=== PATIENT | male | born 1955 | race Caucasian/White ===

== ENCOUNTER 2023-07-14 12:43 | Inpatient (IN) | payer MEDICARE ==
--- NOTE | 2023-07-14 13:23 | ED ---
General Adult HPI - General Source: patient, RN notes reviewed Mode of arrival: ambulatory Limitations: no limitations <Sharlene Greer - Last Filed: 07/14/23 13:20> - General Source: patient, RN notes reviewed Mode of arrival: ambulatory Limitations: no limitations <Miranda Miller - Last Filed: 07/14/23 17:52> - General Chief complaint: Recheck/Abnormal Lab/Rx Stated complaint: Kidney issues Time Seen by Provider: 07/14/23 13:21 - History of Present Illness Initial comments: 68 year old male presents to the emergency department for evaluation of worsening kidney function. Patient states that he received a call from Dr. Lambert's office that told him his calcium is elevated and his kidney function has worsened. He reports history of CKD stage 4 not on dialysis. (Sharlene Greer) This is a 68 year old male who presents to the emergency department for decreased renal function and elevated calcium. He received a call from Dr. Lambert's office stating that his kidney function had worsened and his calcium level was elevated. He was instructed to go to the emergency department for IV fluids at a minimum and further evaluation as to the cause of these changes. Prior to the lab work he had done this week at his [employer] office, his most recent lab work was 3 months ago. He has CKD stage 4 and his GFR is usually in the 20s. Unsure what his calcium level is usually. He did have one of his parathyroid glands removed in 2018 because it was not functioning, however he is unsure if this impacted his calcium levels. His stats that he had a mild case of c.diff last month and he was on vancomycin, and wondered if that may have been the cause of this. Patient denies any concerns or complaints aside from the abnormal labs. (Miranda Miller) - Related Data Allergies Allergy/AdvReac Type Severity Reaction Status Date / Time Penicillins Allergy Unknown Verified 07/14/23 13:06 Childhood Sulfa (Sulfonamide Allergy Rash/Hives Verified 07/14/23 13:06 Antibiotics) Review of Systems ROS Other: All systems not noted in ROS Statement are negative. <Sharlene Greer - Last Filed: 07/14/23 13:20> ROS Other: All systems not noted in ROS Statement are negative. <Miranda Miller - Last Filed: 07/14/23 17:52> ROS Statement: Those systems with pertinent positive or pertinent negative responses have been documented in the HPI. Past Medical History Past Medical History: Diabetes Mellitus, Hyperlipidemia, Hypertension, Renal Disease Additional Past Medical History / Comment(s): DM type 2 History of Any Multi-Drug Resistant Organisms: None Reported Additional Past Surgical History / Comment(s): parathyroid removal 2018, bloodclot filter in groin 2013 Past Psychological History: No Psychological Hx Reported Smoking Status: Never smoker Past Alcohol Use History: None Reported Past Drug Use History: None Reported <Sharlene Greer - Last Filed: 07/14/23 13:20> General Exam Limitations: no limitations <Sharlene Greer - Last Filed: 07/14/23 13:20> Limitations: no limitations General appearance: alert, in no apparent distress Head exam: Present: atraumatic, normocephalic, normal inspection Respiratory exam: Present: normal lung sounds bilaterally. Absent: respiratory distress, wheezes, rales, rhonchi, stridor Cardiovascular Exam: Present: regular rate, normal rhythm, normal heart sounds. Absent: systolic murmur, diastolic murmur, rubs, gallop, clicks Neurological exam: Present: alert, oriented X3, CN II-XII intact Psychiatric exam: Present: normal affect, normal mood Skin exam: Present: warm, dry, intact, normal color. Absent: rash <Miranda Miller - Last Filed: 07/14/23 17:52> - General Exam Comments Initial Comments: Visual Physical Exam Vital signs reviewed General: Well-appearing, nontoxic, no acute distress. Head: Normocephalic, atraumatic Eyes: PERRLA, EOMI ENT: Airway patent Chest: Nonlabored breathing Skin: No visual rash, normal skin tone Neuro: Alert and oriented 3 Musculoskeletal: No gross abnormalities (Sharlene Greer) Course Vital Signs 07/14/23 07/14/23 07/14/23 13:00 15:39 16:00 Temperature 98.7 F Pulse Rate 68 70 69 Respiratory 18 18 18 Rate Blood Pressure 163/83 138/81 147/82 O2 Sat by Pulse 96 96 94 L Oximetry 07/14/23 17:00 Temperature Pulse Rate 74 Respiratory 18 Rate Blood Pressure 165/87 O2 Sat by Pulse 94 L Oximetry Medical Decision Making <Sharlene Greer - Last Filed: 07/14/23 13:20> - Lab Data Result diagrams: 07/14/23 13:15 07/14/23 13:15 <Miranda Miller - Last Filed: 07/14/23 17:52> - Medical Decision Making Quick note preformed by Sharlene Greer PA-C (Sharlene Greer) This is a 68-year-old male who presents to the emergency department for an acute kidney injury and hypercalcemia. Was pt. sent in by a medical professional or institution? @ -Nephrology Did you speak to anyone other than the patient for history? @ -No Did you review nursing and triage notes? @ -Yes, and I agree, it is accurate with regards to the patient's symptoms. Were old charts reviewed? @ -No Differential Diagnosis? @ -Differential ABDULKADIR: Dehydration, medications, infection, this is not meant to be an all-inclusive list. EKG interpreted by me (3pts min.)? @ -EKG interpreted by me demonstrating the following: Sinus rhythm. Ventricular rate 68 beats per minute, CT interval 225 ms, QRS duration 138 ms, QTC 433 ms. X-rays interpreted by me (1pt min.)? @ -Not obtained CT interpreted by me (1pt min.)? @ -Not obtained U/S interpreted by me (1pt. min.)? @ -Not obtained What testing was considered but not performed? (CT, X-rays, U/S, labs)? Why? @ -None What meds were considered but not given? Why? @ -None Did you discuss the management of the patient with other professionals? @ -Yes, Nikita Coyne with [facility], who accepts the patient for admission. Did you reconcile home meds? @ -No Was smoking cessation discussed for >3mins.? @ -No Was critical care preformed (if so, how long)? @ -No Were there social determinants of health that impacted care today? How? (Homelessness, low income, unemployed, alcoholism, drug addiction, transportation, low edu. Level, literacy, decrease access to med. care, penitentiary, rehab)? @ -No Was there de-escalation of care discussed even if they declined? (Discuss DNR or withdrawal of care, Hospice)? @ -No What co-morbidities impacted this encounter? (DM, HTN, Smoking, COPD, CAD, Cancer, CVA, Hep., AIDS, mental health diagnosis, sleep apnea, morbid obesity)? @ -CKD, DM, HLD, HTN Was patient admitted / discharged? @ -Admitted. Lab work obtained revealing leukocytosis, creatinine of 4.76, eGFR of 12, and calcium of 12.9. Ionized calcium elevated at 6.5. Glucose is also low at 67 and magnesium is elevated at 3.5. Urinalysis negative for signs of infection. Patient given a 1L bolus of IV fluids. TSH, PTH, and vitamin D levels ordered with results pending at the time of admission. Patient admitted to medicine for ABDULKADIR and hypercalcemia. Consult placed for nephrology. Undiagnosed new problem with uncertain prognosis? @ -None Drug Therapy requiring intensive monitoring for toxicity (Heparin, Nitro, Insulin, Cardizem)? @ -None Were any procedures done? @ -None Diagnosis/symptom? @ -Hypercalcemia, ABDULKADIR Acute, or Chronic, or Acute on Chronic? @ -Acute Uncomplicated (without systemic symptoms) or Complicated (systemic symptoms)? @ -Uncomplicated Side effects of treatment? @ -None Exacerbation, Progression, or Severe Exacerbation] @ -Not applicable Poses a threat to life or bodily function? @ -Yes This case was discussed in detail with the attending ED physician, Dr. Nance. Presentation, findings, and treatment plan discussed in detail as well. (Miranda Miller) - Lab Data Lab Results 07/14/23 07/14/23 07/14/23 Range/Units 13:15 13:15 13:15 WBC 14.3 H (3.8-10.6) k/uL RBC 3.89 L (4.30-5.90) m/uL Hgb 12.0 L (13.0-17.5) gm/dL Hct 34.8 L (39.0-53.0) % MCV 89.3 (80.0-100.0) fL MCH 30.9 (25.0-35.0) pg MCHC 34.7 (31.0-37.0) g/dL RDW 13.7 (11.5-15.5) % Plt Count 331 (150-450) k/uL MPV 7.3 Neutrophils % 77 % Lymphocytes % 11 % Monocytes % 7 % Eosinophils % 3 % Basophils % 1 % Neutrophils # 11.0 H (1.3-7.7) k/uL Lymphocytes # 1.5 (1.0-4.8) k/uL Monocytes # 1.0 (0-1.0) k/uL Eosinophils # 0.4 (0-0.7) k/uL Basophils # 0.1 (0-0.2) k/uL Sodium 137 (137-145) mmol/L Potassium 4.4 (3.5-5.1) mmol/L Chloride 100 (98-107) mmol/L Carbon Dioxide 23 (22-30) mmol/L Anion Gap 14 mmol/L BUN 50 H (9-20) mg/dL Creatinine 4.76 H (0.66-1.25) mg/dL Est GFR (CKD-EPI)AfAm 13 (>60 ml/min/1.73 sqM) Est GFR (CKD-EPI)NonAf 12 (>60 ml/min/1.73 sqM) Glucose 67 L (74-99) mg/dL Calcium 12.9 H (8.4-10.2) mg/dL Ionized Calcium Negro (4.5-5.3) mg/dL Phosphorus 3.8 (2.5-4.5) mg/dL Magnesium 3.5 H (1.6-2.3) mg/dL Total Bilirubin 0.4 (0.2-1.3) mg/dL AST 24 (17-59) U/L ALT 19 (4-49) U/L Alkaline Phosphatase 58 (38-126) U/L Total Protein 7.7 (6.3-8.2) g/dL Albumin 4.5 (3.5-5.0) g/dL Lipase (23-300) U/L Urine Color Colorless Urine Appearance Clear (Clear) Urine pH 7.5 (5.0-8.0) Ur Specific [place] 1.009 (1.001-1.035) Urine Protein 1+ H (Negative) Urine Glucose (UA) 1+ H (Negative) Urine Ketones Negative (Negative) Urine Blood Negative (Negative) Urine Nitrite Negative (Negative) Urine Bilirubin Negative (Negative) Urine Urobilinogen <2.0 (<2.0) mg/dL Ur Leukocyte Esterase Negative (Negative) Urine RBC <1 (0-5) /hpf Urine WBC 1 (0-5) /hpf Ur Squamous Epith Cells <1 (0-4) /hpf Urine Mucus Rare H (None) /hpf 07/14/23 Range/Units 14:52 WBC (3.8-10.6) k/uL RBC (4.30-5.90) m/uL Hgb (13.0-17.5) gm/dL Hct (39.0-53.0) % MCV (80.0-100.0) fL MCH (25.0-35.0) pg MCHC (31.0-37.0) g/dL RDW (11.5-15.5) % Plt Count (150-450) k/uL MPV Neutrophils % % Lymphocytes % % Monocytes % % Eosinophils % % Basophils % % Neutrophils # (1.3-7.7) k/uL Lymphocytes # (1.0-4.8) k/uL Monocytes # (0-1.0) k/uL Eosinophils # (0-0.7) k/uL Basophils # (0-0.2) k/uL Sodium (137-145) mmol/L Potassium (3.5-5.1) mmol/L Chloride (98-107) mmol/L Carbon Dioxide (22-30) mmol/L Anion Gap mmol/L BUN (9-20) mg/dL Creatinine (0.66-1.25) mg/dL Est GFR (CKD-EPI)AfAm (>60 ml/min/1.73 sqM) Est GFR (CKD-EPI)NonAf (>60 ml/min/1.73 sqM) Glucose (74-99) mg/dL Calcium (8.4-10.2) mg/dL Ionized Calcium Negro 6.5 H* (4.5-5.3) mg/dL Phosphorus (2.5-4.5) mg/dL Magnesium (1.6-2.3) mg/dL Total Bilirubin (0.2-1.3) mg/dL AST (17-59) U/L ALT (4-49) U/L Alkaline Phosphatase (38-126) U/L Total Protein (6.3-8.2) g/dL Albumin (3.5-5.0) g/dL Lipase 104 (23-300) U/L Urine Color Urine Appearance (Clear) Urine pH (5.0-8.0) Ur Specific [place] (1.001-1.035) Urine Protein (Negative) Urine Glucose (UA) (Negative) Urine Ketones (Negative) Urine Blood (Negative) Urine Nitrite (Negative) Urine Bilirubin (Negative) Urine Urobilinogen (<2.0) mg/dL Ur Leukocyte Esterase (Negative) Urine RBC (0-5) /hpf Urine WBC (0-5) /hpf Ur Squamous Epith Cells (0-4) /hpf Urine Mucus (None) /hpf Disposition <Sharlene Greer - Last Filed: 07/14/23 13:20> Time of Disposition: 17:40 <Miranda Miller - Last Filed: 07/14/23 17:52> Clinical Impression: ABDULKADIR (acute kidney injury), Hypercalcemia Disposition: ADMITTED IP TO THIS HOSP Referrals: None,Stated [Primary Care Provider] - 1-2 days
[2023-07-14 14:04] LABS: Basophils # (A) 0.1 k/uL (0-0.2); Basophils % (A) 1 %; Eosinophils # (A) 0.4 k/uL (0-0.7); Eosinophils % (A) 3 %; HCT 34.8 % (39.0-53.0); Lymphocytes # (A) 1.5 k/uL (1.0-4.8); Lymphocytes % (A) 11 %; MCH 30.9 pg (25.0-35.0); MCHC 34.7 g/dL (31.0-37.0); MCV 89.3 fL (80.0-100.0); Mean Platelet Volume 7.3; Monocytes % (A) 7 %; Neutrophils % (A) 77 %; Platelet Count 331 k/uL (150-450); RBC 3.89 m/uL (4.30-5.90); RDW 13.7 % (11.5-15.5); WBC 14.3 k/uL (3.8-10.6)
[2023-07-14 14:08] LABS: Appearance,Urine Clear (Clear); Bilirubin,Urine Negative (Negative); Blood,Urine Negative (Negative); Color,Urine Colorless; Glucose,Urine (UA) 1+ (Negative); Ketones,Urine Negative (Negative); Leukocyte Esterase,Urine Negative (Negative); Mucus,Urine Rare /hpf; Nitrite,Urine Negative (Negative); PH, Urine 7.5 (5.0-8.0); Protein,Urine 1+ (Negative); RBC,Urine <1 /hpf (0-5); Specific Gravity,Urine 1.009 (1.001-1.035); Squamous Epithelial Cell,Urine <1 /hpf (0-4); Urobilinogen,Urine <2.0 mg/dL (<2.0); WBC,Urine 1 /hpf (0-5)
[2023-07-14 14:23] LABS: ALT 19 U/L (4-49); AST 24 U/L (17-59); African American GFR (CKD) 13 (>60 ml/min/1.73 sqM); Albumin 4.5 g/dL (3.5-5.0); Alkaline Phosphatase 58 U/L (38-126); Anion Gap 14 mmol/L; Blood Urea Nitrogen 50 mg/dL (9-20); Calcium 12.9 mg/dL (8.4-10.2); Carbon Dioxide 23 mmol/L (22-30); Chloride 100 mmol/L (98-107); Glucose 67 mg/dL (74-99); Magnesium 3.5 mg/dL (1.6-2.3); Non-African American GFR(CKD) 12 (>60 ml/min/1.73 sqM); Phosphorus 3.8 mg/dL (2.5-4.5); Potassium 4.4 mmol/L (3.5-5.1); Sodium 137 mmol/L (137-145); Total Bilirubin 0.4 mg/dL (0.2-1.3); Total Protein 7.7 g/dL (6.3-8.2)
[2023-07-14] MEDS ORDERED: SODIUM CHLORIDE 0.9% 1,000 ML IV STA (15:18)
[2023-07-14 16:41] LABS: Ionized Calcium 6.5 mg/dL (4.5-5.3)
[2023-07-14 17:37] LABS: Lipase 104 U/L (23-300)
[2023-07-14] MEDS ORDERED: ACETAMINOPHEN TAB 325 MG TAB PO PRN (17:42)
[2023-07-14] MEDS ORDERED: NALOXONE 0.4 MG/ML 1 ML VIAL IV PRN (17:42)
[2023-07-14 18:01] LABS: Glucose,Whole Blood 160 mg/dL (70-110)
[2023-07-14] MEDS: SODIUM CHLORIDE 0.9% 1,000 ML IV SCH (19:05)
[2023-07-15 06:24] LABS: Glucose,Whole Blood 98 mg/dL (70-110)
[2023-07-15] MEDS: CHOLECALCIFEROL 25 MCG (1000 IU) TABLET PO SCH (09:32)
[2023-07-15] MEDS: hydrALAZINE HCL 50 MG TAB PO SCH ×3 (09:33→22:04)
[2023-07-15] MEDS: amLODIPine 5 MG TAB PO SCH ×2 (09:33→22:04)
[2023-07-15] MEDS: cloNIDine HCL 0.2 MG TAB PO SCH ×3 (09:33→22:04)
[2023-07-15] MEDS: carvediloL 12.5 MG TAB PO SCH ×2 (09:33→16:39)
[2023-07-15] MEDS: FERROUS SULFATE 325 MG TAB PO SCH (09:33)
[2023-07-15] MEDS: SODIUM CHLORIDE 0.9% 1,000 ML IV SCH (09:53)
--- NOTE | 2023-07-15 10:57 | XR ---
EXAMINATION TYPE: XR chest 1V portable DATE OF EXAM: 07/15/2023 COMPARISON: None INDICATION: CHF TECHNIQUE: Single frontal view of the chest is obtained. FINDINGS: The heart size is normal. The pulmonary vasculature is normal. The lungs are clear. IMPRESSION: 1. No acute pulmonary process.
--- NOTE | 2023-07-15 11:53 | HP ---
HISTORY AND PHYSICAL CHIEF COMPLAINT: Renal failure. HISTORY OF PRESENT ILLNESS: This is a 68-year-old gentleman with a past medical history of multiple medical problems including diabetes mellitus, hypertension, hyperlipidemia, renal failure, being followed in the outpatient setting, outpatient labs which was abnormal. The patient is followed by Dr. Lopez as well as nephrology also and currently the creatinine was found to be elevated at 4.73. GFR was only 12 and calcium was also elevated at 12.9 and 6.5 and the patient was admitted for further evaluation and treatment. There is no history of any fever, rigors, or chills at this time. PAST MEDICAL HISTORY: Diabetes mellitus, hypertension, and hyperlipidemia. MEDICATIONS: Prior to admission include hydralazine, doses and rest of medications noted. ALLERGIES: Penicillin. FAMILY HISTORY: No history of heart disease or strokes in the family. SOCIAL HISTORY: No history of smoking or alcohol. REVIEW OF SYSTEMS: A 14-point review is negative except as mentioned earlier. PHYSICAL EXAMINATION: VITAL SIGNS: Pulse 70, blood pressure 140/82, respirations 16. HEENT: Conjunctivae normal. CARDIOVASCULAR: S1, S2. RESPIRATIONS: Diminished at the bases, no rhonchi. ABDOMEN: Soft, obese, nontender. No masses. LEGS: No edema, no swelling. NERVOUS SYSTEM: Nonfocal. LYMPHATICS: No lymphadenopathy. SKIN: No ulcer, rash, bleeding. JOINTS: No active deforming arthropathy. LABORATORY DATA: WBC 14, hemoglobin is 12, and creatinine is 4.76. ASSESSMENT: 1. Acute on chronic renal failure with acute tubular necrosis possibly. 2. Hypercalcemia. 3. Elevated WBC. 4. Diabetes mellitus type 2. 5. Hypertension. 6. Hyperlipidemia. 7. History of C. diff. 8. History of parathyroid removal. RECOMMENDATIONS AND DISCUSSION: This 68-year-old gentleman presents with multiple complex medical issues. At this time, I recommended to continue the current management and continue symptomatic treatment, otherwise I would recommend cautious IV hydration. Baseline chest x-ray will be ordered and Nephrology consultation, serum parathormone assay, WBC elevated exact reason unknown. If UA does not seem to be remarkable, I would recommend COVID-19 testing also, status post cultures, see orders for details. Overall prognosis extremely guarded, which I discussed with family. Further recommendations to follow. MMODL / IJN: [id number] /
--- NOTE | 2023-07-15 11:59 | P.NPCON ---
History of Present Illness - Reason for Consult acute renal failure - History of Present Illness Patient is a 68-year-old male with history of CK D stage IV with baseline creatinine around 3 mg/dL in March 2023. He was sent into the hospital with worsening renal function, increase creatinine to 5.5 and elevated calcium at the 12-lead grams per deciliter. Patient denies any significant symptoms. Patient has history of primary hyperparathyroidism status post removal of one parathyroid gland at [facility] a few years ago. He is not maintained on calcitriol or Tums prior to admission. Labs drawn yesterday shows vitamin D of 44.1 and PTH 35.4. Repeat labs are pending from today. Review of Systems As per HPI Past Medical History Past Medical History: Diabetes Mellitus, Hyperlipidemia, Hypertension, Renal Disease Additional Past Medical History / Comment(s): DM type 2 History of Any Multi-Drug Resistant Organisms: C-DIFF Date of last positivie culture/infection: 06/04/23 MDRO Source:: stool Additional Past Surgical History / Comment(s): parathyroid removal 2017, bloodclot filter in groin 2013 Past Psychological History: No Psychological Hx Reported Smoking Status: Never smoker Past Alcohol Use History: None Reported Past Drug Use History: None Reported Medications and Allergies Home Medications Medication Instructions Recorded Confirmed Type Aspirin EC [Ecotrin Low Dose] 81 mg PO HS@222907/14/23 07/14/23 History Cholecalciferol [Vitamin D3 (25 50 mcg PO DAILY 07/14/23 07/14/23 History Mcg = 1000 Iu)] Ezetimibe/Simvastatin 1 tab PO HS@222907/14/23 07/14/23 History [Ezetimibe/Simvastatin 10-40 mg] Ferrous Sulfate [Feosol] 325 mg PO DAILY 07/14/23 07/14/23 History Furosemide [Lasix] 40 mg PO DAILY 07/14/23 07/14/23 History HYDROcodone/APAP 7.5-325MG [[place] 0.5 tab PO Q3H 07/14/23 07/14/23 History 7.5-325] Insulin Aspart [NovoLOG Flexpen] 20 units SQ AC-TID 07/14/23 07/14/23 History Insulin Glargine,Hum.rec.anlog 30 units SQ HS 07/14/23 07/14/23 History [Lantus Solostar Pen] Insulin Glargine,Hum.rec.anlog 35 units SQ DAILY 07/14/23 07/14/23 History [Lantus Solostar Pen] Isosorbide Mononitrate ER [Imdur] 60 mg PO DAILY@1730 07/14/23 07/14/23 History Spironolactone [Aldactone] 25 mg PO BID@1730,2230 07/14/23 07/14/23 History amLODIPine [Norvasc] 5 mg PO BID 07/14/23 07/14/23 History carvediloL [Coreg] 25 mg PO BID 07/14/23 07/14/23 History cloNIDine HCL 0.2 mg PO TID 07/14/23 07/14/23 History hydrALAZINE HCL [Apresoline] 100 mg PO TID 07/14/23 07/14/23 History Allergies Allergy/AdvReac Type Severity Reaction Status Date / Time Penicillins Allergy Unknown Verified 07/14/23 19:28 Childhood Sulfa (Sulfonamide Allergy Rash/Hives Verified 07/14/23 19:28 Antibiotics) Physical Exam Vitals: Vital Signs Temp Pulse Pulse Resp BP BP Pulse Ox 07/15/23 10:36 69 21 151/87 94 L 07/15/23 04:07 70 152/81 96 07/15/23 00:10 75 16 146/84 94 L 07/14/23 22:00 81 18 151/84 94 L 07/14/23 17:00 74 18 165/87 94 L 07/14/23 16:00 69 18 147/82 94 L 07/14/23 15:39 70 18 138/81 96 07/14/23 13:00 98.7 F 68 18 163/83 96 Intake and Output 07/14/23 07/15/23 07/15/23 22:59 06:59 14:59 Other: Voiding Method Toilet Toilet Weight 117.934 kg Patient is awake, comfortable, no acute distress Alert oriented 3 Examination of the heart S1 and S2 Examination of the lungs bilateral breath sounds are heard Abdomen is soft nontender Examination of lower extremity shows no significant edema DINING ROOM HOSTESS exam grossly intact Results - Lab Results Most recent lab results Calcium 12.9 mg/dL (8.4-10.2) H 07/14/23 13:15 Phosphorus 3.8 mg/dL (2.5-4.5) 07/14/23 13:15 Magnesium 3.5 mg/dL (1.6-2.3) H 07/14/23 13:15 07/14/23 13:15 07/14/23 13:15 Assessment and Plan Assessment: 1. Acute kidney injury secondary to hypercalcemia and volume depletion currently improving. Continue with IV fluids 2. Hypercalcemia with previous history of remedy hyperparathyroidism status post removal of one parathyroid gland few years ago. Vitamin D is 44 and PTH is 35. They may be underlying primary hyperparathyroidism. Serum and urine immunofixation and REJI level is pending. 3. Chronic kidney disease NKF stage IV secondary to nephrosclerosis with baseline creatinine around 3.2 milligrams per deciliter in March 2023 4. Hypertension with CK D stage IV Plan: Continue with IV fluids Check Reji level and Serum and urine immunofixation Repeat labs in a.m. Consider parathyroid nuclear scan if other workup remains negative. Thank you for the consultation. We will continue to follow the patient with you during his hospitalization.
[2023-07-15] MEDS: INSULIN ASPART (NovoLOG) 100 UNIT/ML VIAL SQ SCH ×3 (12:48→22:05)
[2023-07-15 12:49] LABS: Glucose,Whole Blood 133 mg/dL (70-110)
[2023-07-15 13:52] LABS: Basophils % (A) 0 %; Eosinophils # (A) 0.4 k/uL (0-0.7); Eosinophils % (A) 4 %; HCT 33.2 % (39.0-53.0); HGB 11.3 gm/dL (13.0-17.5); Lymphocytes # (A) 1.5 k/uL (1.0-4.8); Lymphocytes % (A) 16 %; MCH 30.7 pg (25.0-35.0); MCHC 33.9 g/dL (31.0-37.0); MCV 90.5 fL (80.0-100.0); Monocytes # (A) 0.5 k/uL (0-1.0); Monocytes % (A) 6 %; Neutrophils # (A) 6.4 k/uL (1.3-7.7); Neutrophils % (A) 71 %; Platelet Count 282 k/uL (150-450); RBC 3.67 m/uL (4.30-5.90); RDW 13.7 % (11.5-15.5); WBC 8.9 k/uL (3.8-10.6)
[2023-07-15 13:54] LABS: African American GFR (CKD) 14 (>60 ml/min/1.73 sqM); Anion Gap 15 mmol/L; Blood Urea Nitrogen 45 mg/dL (9-20); Calcium 11.7 mg/dL (8.4-10.2); Carbon Dioxide 23 mmol/L (22-30); Chloride 102 mmol/L (98-107); Glucose 127 mg/dL (74-99); Non-African American GFR(CKD) 12 (>60 ml/min/1.73 sqM); Potassium 4.3 mmol/L (3.5-5.1); Sodium 140 mmol/L (137-145)
[2023-07-15] MEDS: ISOSORBIDE MONONITRATE ER 60 MG TAB.ER.24H PO SCH (16:39)
[2023-07-15 16:43] LABS: Glucose,Whole Blood 132 mg/dL (70-110)
[2023-07-15 21:59] LABS: Glucose,Whole Blood 161 mg/dL (70-110)
[2023-07-15] MEDS: EZETIMIBE 10 MG TAB PO SCH (22:03)
[2023-07-15] MEDS: ATORVASTATIN 20 MG TAB PO SCH (22:04)
[2023-07-15] MEDS: ASPIRIN 81 MG PO SCH (22:06)
[2023-07-16 04:04] LABS: Glucose,Whole Blood 131 mg/dL (70-110)
[2023-07-16 04:04] LABS: Glucose,Whole Blood 141 mg/dL (70-110)
[2023-07-16 08:10] LABS: Glucose,Whole Blood 101 mg/dL (70-110)
[2023-07-16] MEDS: INSULIN ASPART (NovoLOG) 100 UNIT/ML VIAL SQ SCH ×4 (09:17→22:04)
[2023-07-16] MEDS: amLODIPine 5 MG TAB PO SCH ×2 (09:19→22:05)
[2023-07-16] MEDS: hydrALAZINE HCL 50 MG TAB PO SCH ×3 (09:19→22:05)
[2023-07-16] MEDS: FERROUS SULFATE 325 MG TAB PO SCH (09:19)
[2023-07-16] MEDS: CHOLECALCIFEROL 25 MCG (1000 IU) TABLET PO SCH (09:19)
[2023-07-16] MEDS: carvediloL 12.5 MG TAB PO SCH ×2 (09:19→17:08)
[2023-07-16] MEDS: cloNIDine HCL 0.2 MG TAB PO SCH ×3 (10:51→22:57)
[2023-07-16] MEDS: SODIUM CHLORIDE 0.9% 1,000 ML IV SCH (10:51)
--- NOTE | 2023-07-16 11:14 | P.PN ---
Subjective Patient is seen in follow-up for acute kidney injury on chronic kidney disease and hypercalcemia. Calcium level trending down. Renal function stable as of yesterday. Currently off IV fluids. Has been voiding. No vomiting or diarrhea. Vital signs are stable. General: No acute distress. HEENT: Head exam is unremarkable. LUNGS: Notable rhonchi or wheezes. HEART: Rate and Rhythm are regular. ABDOMEN: Nontender. Obese. EXTREMITITES: No edema. Objective - Vital Signs Vital signs: Vital Signs Temp 98.6 F 07/16/23 08:10 Pulse 67 07/16/23 08:10 Resp 17 07/16/23 08:10 BP 123/73 07/16/23 08:10 Pulse Ox 94 L 07/16/23 08:10 FiO2 Intake & Output 07/15/23 07/16/23 07/16/23 18:59 06:59 18:59 Output Total 300 Balance -300 Output: Urine 300 Other: Voiding Method Urinal Toilet Toilet Urinal Urinal # Voids 2 - Labs CBC & Chem 7: 07/15/23 12:57 07/15/23 12:57 Labs: Abnormal Lab Results - Last 24 Hours (Table) 07/15/23 07/15/23 07/15/23 Range/Units 12:47 12:57 12:57 RBC 3.67 L (4.30-5.90) m/uL Hgb 11.3 L (13.0-17.5) gm/dL Hct 33.2 L (39.0-53.0) % BUN 45 H (9-20) mg/dL Creatinine 4.66 H (0.66-1.25) mg/dL Glucose 127 H (74-99) mg/dL POC Glucose (mg/dL) 133 H (70-110) mg/dL Calcium 11.7 H (8.4-10.2) mg/dL Procalcitonin (0.02-0.09) ng/mL 07/15/23 07/15/23 07/15/23 Range/Units 12:57 16:42 21:48 RBC (4.30-5.90) m/uL Hgb (13.0-17.5) gm/dL Hct (39.0-53.0) % BUN (9-20) mg/dL Creatinine (0.66-1.25) mg/dL Glucose (74-99) mg/dL POC Glucose (mg/dL) 132 H 161 H (70-110) mg/dL Calcium (8.4-10.2) mg/dL Procalcitonin 0.13 H (0.02-0.09) ng/mL 07/16/23 07/16/23 Range/Units 04:00 04:01 RBC (4.30-5.90) m/uL Hgb (13.0-17.5) gm/dL Hct (39.0-53.0) % BUN (9-20) mg/dL Creatinine (0.66-1.25) mg/dL Glucose (74-99) mg/dL POC Glucose (mg/dL) 141 H 131 H (70-110) mg/dL Calcium (8.4-10.2) mg/dL Procalcitonin (0.02-0.09) ng/mL Assessment and Plan Plan: Assessment: 1. Acute kidney injury secondary to ATN versus progression of underlying chronic kidney disease. Creatinine 4.76 on admission and down to 4.66 yesterday. Rule out urinary retention. 2. Chronic kidney disease stage IV secondary to nephrosclerosis and diabetic kidney disease with baseline creatinine near 3 in March 2023. 3. Hypercalcemia with history of partial parathyroidectomy over 5 years ago. On vitamin D supplement daily. Denies personal history of malignancy. Vitamin D level 44 and PTH 35. Improving. 4. Diabetes mellitus. 5. Hypertension with chronic kidney disease. Stable. Plan: Resume IV fluids. Discontinue vitamin D. Follow-up pending workup for hypercalcemia. May need parathyroid nuclear scan. Morning labs pending.
[2023-07-16 11:17] LABS: Basophils # (A) 0.07 X 10*3/uL (0.00-0.10); Basophils % (A) 0.7 %; Eosinophils # (A) 0.52 X 10*3/uL (0.04-0.35); Eosinophils % (A) 5.4 %; HCT 33.7 % (39.6-50.0); HGB 10.8 g/dL (13.0-17.0); Lymphocytes # (A) 2.15 X 10*3/uL (0.90-5.00); Lymphocytes % (A) 22.4 %; MCH 29.8 pg (27.0-32.0); MCV 93.1 FL (80.0-97.0); Mean Platelet Volume 9.9 FL (9.5-12.2); Monocytes % (A) 11.4 %; NRBC Per 100 WBC 0 X 10*3/uL (0.00-0.01); Neutrophils # (A) 5.71 X 10*3/uL (1.80-7.70); Neutrophils % (A) 59.5 %; Platelet Count 296 X 10*3/uL (140-440); RBC 3.62 X 10*6/uL (4.40-5.60); RDW 13.4 % (11.5-14.5); WBC 9.61 X 10*3/uL (4.50-10.00)
[2023-07-16 11:23] LABS: ALT 14 U/L (10-49); AST 17 U/L (14-35); Albumin 4.3 g/dL (3.8-4.9); Albumin/Globulin Ratio 1.72 Ratio (1.60-3.17); Alkaline Phosphatase 44 U/L (41-126); BUN/Creat Ratio 8.42 Ratio (12.00-20.00); Blood Urea Nitrogen 42.1 mg/dL (9.0-27.0); Calcium 11.9 mg/dL (8.7-10.3); Carbon Dioxide 21.6 mmol/L (21.6-31.8); Chloride 103 mmol/L (96-109); Globulin 2.5 g/dL (1.6-3.3); Glucose 113 mg/dL (70-110); Potassium 4.5 mmol/L (3.5-5.5); Sodium 139 mmol/L (135-145); Total Bilirubin 0.2 mg/dL (0.3-1.2); Total Protein 6.8 g/dL (6.2-8.2)
[2023-07-16 12:16] LABS: Glucose,Whole Blood 160 mg/dL (70-110)
[2023-07-16] MEDS ORDERED: SODIUM CHLORIDE 0.9% 250 ML with PAMIDRONATE 60 MG IV ONE ×2 (15:47)
[2023-07-16] MEDS ORDERED: CALCITONIN INJ 200 UNIT/ML (MDV) VIAL IM ONE (16:45)
[2023-07-16] MEDS: ISOSORBIDE MONONITRATE ER 60 MG TAB.ER.24H PO SCH (17:08)
[2023-07-16 17:09] LABS: Glucose,Whole Blood 235 mg/dL (70-110)
[2023-07-16] MEDS: ONDANSETRON 4 MG/2 ML VIAL IVP PRN (17:31)
[2023-07-16 20:20] LABS: Glucose,Whole Blood 160 mg/dL (70-110)
[2023-07-16] MEDS: EZETIMIBE 10 MG TAB PO SCH (22:05)
[2023-07-16] MEDS: ATORVASTATIN 20 MG TAB PO SCH (22:05)
[2023-07-16] MEDS: ASPIRIN 81 MG PO SCH (22:05)
[2023-07-16] MEDS ORDERED: METOCLOPRAMIDE 5 MG/ML 2 ML VIAL IVP PRN (22:14)
[2023-07-16] MEDS: PANTOPRAZOLE 40 MG/10 ML VIAL IVP SCH (22:24)
--- NOTE | 2023-07-16 23:20 | PN ---
PROGRESS NOTE DATE OF SERVICE: 07/16/2023 SUBJECTIVE: This is a 68-year-old gentleman, who was admitted with acute on chronic renal failure, hypocalcemia, also had a previous parathyroid surgery and Nephrology following the patient closely. Creatinine is worsened up to 5. The patient does have some urine output. There is no history of any fever or rigors. PAST MEDICAL HISTORY: Reviewed. REVIEW OF SYSTEMS: A 14-point review is negative except as mentioned earlier. CURRENT MEDICATIONS: Reviewed include aspirin, dose and rest of medications reviewed. PHYSICAL EXAMINATION: VITAL SIGNS: Pulse 67, blood pressure 123/73, respirations 17. CHEST: Scattered rhonchi and crackles. ABDOMEN: Soft. NERVOUS SYSTEM: Nonfocal. LABORATORY DATA: Reviewed. Calcium is 11.9. ASSESSMENT: 1. Acute on chronic renal failure with acute tubular necrosis possibly. 2. Hypercalcemia secondary to hyperparathyroidism. 3. History of parathyroidectomy. 4. Elevated WBC. 5. Diabetes mellitus, type 2. 6. Hypertension. 7. Hyperlipidemia. 8. History of Clostridium difficile. RECOMMENDATIONS AND DISCUSSION: Recommend to continue current medications and continue symptomatic treatment, otherwise, cautious IV hydration. Repeat labs. Closely follow with Nephrology. Avoid nephrotoxic medications. PTH has been requested. Monitor blood pressure closely. Prognosis guarded because of multiple complex medical issues. Further recommendations to follow. See orders for further details. MMODL / IJN: [id number] /
[2023-07-17] MEDS: HYDROcodone/APAP 5-325MG 1 EACH TAB PO PRN ×3 (02:00→20:31)
[2023-07-17] MEDS: ONDANSETRON 4 MG/2 ML VIAL IVP PRN ×2 (02:01→11:51)
[2023-07-17] MEDS: SODIUM CHLORIDE 0.9% 1,000 ML IV SCH ×2 (03:15→16:38)
[2023-07-17 07:14] LABS: Glucose,Whole Blood 168 mg/dL (70-110)
--- NOTE | 2023-07-17 08:54 | XR ---
EXAMINATION TYPE: XR abdomen 2V DATE OF EXAM: 07/17/2023 COMPARISON: NONE HISTORY: nausea TECHNIQUE: One view abdominal series FINDINGS: The osseous structures are intact. The bowel gas pattern is nonspecific. Extensive retained fecal de bris throughout the colon compatible with severe constipation. Bilateral renal calculi are noted. The re is an IVC filter. Hypertrophic arthropathy of the hips. Degenerative changes spine. Atheroscleroti c changes. IMPRESSION: 1. Severe constipation. 2. Bilateral nephrolithiasis
[2023-07-17] MEDS: FERROUS SULFATE 325 MG TAB PO SCH (09:34)
[2023-07-17] MEDS: INSULIN ASPART (NovoLOG) 100 UNIT/ML VIAL SQ SCH ×4 (09:34→21:43)
[2023-07-17] MEDS: PANTOPRAZOLE 40 MG/10 ML VIAL IVP SCH ×2 (09:34→20:32)
[2023-07-17] MEDS: hydrALAZINE HCL 50 MG TAB PO SCH ×3 (09:34→21:43)
[2023-07-17] MEDS: amLODIPine 5 MG TAB PO SCH ×2 (09:34→20:31)
[2023-07-17] MEDS: cloNIDine HCL 0.2 MG TAB PO SCH ×3 (09:34→21:43)
[2023-07-17] MEDS: carvediloL 12.5 MG TAB PO SCH ×2 (09:35→16:36)
[2023-07-17] MEDS ORDERED: NA PHOS,M-B/NA PHOS,DI-BA 133 ML ENEMA RECTAL ONE (10:41)
[2023-07-17] MEDS ORDERED: LACTULOSE 20 GM/30 ML CUP PO ONE (10:41)
[2023-07-17 10:43] LABS: Basophils # (A) 0.05 X 10*3/uL (0.00-0.10); Basophils % (A) 0.5 %; HCT 34.5 % (39.6-50.0); HGB 10.9 g/dL (13.0-17.0); Lymphocytes # (A) 1.13 X 10*3/uL (0.90-5.00); Lymphocytes % (A) 11.5 %; MCH 29.9 pg (27.0-32.0); MCHC 31.6 g/dL (32.0-37.0); MCV 94.8 FL (80.0-97.0); Mean Platelet Volume 9.6 FL (9.5-12.2); Monocytes # (A) 0.86 X 10*3/uL (0.20-1.00); Monocytes % (A) 8.7 %; NRBC Per 100 WBC 0 X 10*3/uL (0.00-0.01); Neutrophils # (A) 7.66 X 10*3/uL (1.80-7.70); Neutrophils % (A) 77.7 %; Platelet Count 296 X 10*3/uL (140-440); RBC 3.64 X 10*6/uL (4.40-5.60); RDW 13.6 % (11.5-14.5); WBC 9.86 X 10*3/uL (4.50-10.00)
[2023-07-17 11:20] LABS: ALT 14 U/L (10-49); AST 13 U/L (14-35); Albumin 4.2 g/dL (3.8-4.9); Albumin/Globulin Ratio 1.68 Ratio (1.60-3.17); Alkaline Phosphatase 45 U/L (41-126); BUN/Creat Ratio 8.79 Ratio (12.00-20.00); Blood Urea Nitrogen 42.2 mg/dL (9.0-27.0); Calcium 10.9 mg/dL (8.7-10.3); Carbon Dioxide 21.8 mmol/L (21.6-31.8); Chloride 107 mmol/L (96-109); Globulin 2.5 g/dL (1.6-3.3); Glucose 161 mg/dL (70-110); Magnesium 2.8 mg/dL (1.5-2.4); Potassium 5.2 mmol/L (3.5-5.5); Sodium 141 mmol/L (135-145); Total Bilirubin 0.2 mg/dL (0.3-1.2); Total Protein 6.7 g/dL (6.2-8.2)
--- NOTE | 2023-07-17 12:29 | P.PN ---
Subjective Patient is seen in follow-up for acute kidney injury on chronic kidney disease and hypercalcemia. Calcium level trending down. Slightly better. Currently on IV fluids. Has been voiding. No vomiting or diarrhea. Vital signs are stable. General: No acute distress. HEENT: Head exam is unremarkable. LUNGS: Notable rhonchi or wheezes. HEART: Rate and Rhythm are regular. ABDOMEN: Nontender. Obese. EXTREMITITES: No edema. Objective - Vital Signs Vital signs: Vital Signs Temp 98.7 F 07/17/23 07:14 Pulse 83 07/17/23 07:14 Resp 20 07/17/23 07:14 BP 143/77 07/17/23 07:14 Pulse Ox 94 L 07/17/23 07:14 FiO2 Intake & Output 07/16/23 07/17/23 07/17/23 18:59 06:59 18:59 Output Total 700 673 Balance -700 -673 Output: Urine 700 450 Post Void Residual 223 Other: Voiding Method Toilet Toilet Toilet Urinal Urinal Urinal # Voids 3 1 - Labs CBC & Chem 7: 07/17/23 05:49 07/17/23 05:49 Labs: Abnormal Lab Results - Last 24 Hours (Table) 07/14/23 07/16/23 07/16/23 Range/Units 14:52 17:08 20:19 RBC (4.40-5.60) X 10*6/uL Hgb (13.0-17.0) g/dL Hct (39.6-50.0) % MCHC (32.0-37.0) g/dL Immature Gran # (0.00-0.04) X 10*3/uL Anion Gap (4.00-12.00) mmol/L BUN (9.0-27.0) mg/dL Creatinine (0.6-1.5) mg/dL Est GFR (CKD-EPI) (>=60) BUN/Creatinine Ratio (12.00-20.00) Ratio Glucose (70-110) mg/dL POC Glucose (mg/dL) 235 H 160 H (70-110) mg/dL Calcium (8.7-10.3) mg/dL Magnesium (1.5-2.4) mg/dL Total Bilirubin (0.3-1.2) mg/dL AST (14-35) U/L Vit D 1,25-Dihydroxy 16 L (20 - 79) pg/mL 07/17/23 07/17/23 07/17/23 Range/Units 05:49 05:49 07:12 RBC 3.64 L (4.40-5.60) X 10*6/uL Hgb 10.9 L (13.0-17.0) g/dL Hct 34.5 L (39.6-50.0) % MCHC 31.6 L (32.0-37.0) g/dL Immature Gran # 0.06 H (0.00-0.04) X 10*3/uL Anion Gap 12.20 H (4.00-12.00) mmol/L BUN 42.2 H (9.0-27.0) mg/dL Creatinine 4.8 H (0.6-1.5) mg/dL Est GFR (CKD-EPI) 12 L (>=60) BUN/Creatinine Ratio 8.79 L (12.00-20.00) Ratio Glucose 161 H (70-110) mg/dL POC Glucose (mg/dL) 168 H (70-110) mg/dL Calcium 10.9 H (8.7-10.3) mg/dL Magnesium 2.8 H (1.5-2.4) mg/dL Total Bilirubin 0.2 L (0.3-1.2) mg/dL AST 13 L (14-35) U/L Vit D 1,25-Dihydroxy (20 - 79) pg/mL Microbiology - Last 24 Hours (Table) 07/16/23 12:00 Urine Culture - Final Urine,Clean Catch 07/15/23 12:57 Blood Culture - Preliminary Blood Assessment and Plan Plan: Assessment: 1. Acute kidney injury secondary to ATN versus progression of underlying chronic kidney disease. Creatinine peaked at 5.0 this admission and is 4.8 today. 2. Chronic kidney disease stage IV secondary to nephrosclerosis and diabetic kidney disease with baseline creatinine near 3 in March 2023. 3. Hypercalcemia with history of partial parathyroidectomy over 5 years ago. On vitamin D supplement daily - stopped 07/16/2023.. Denies personal history of malignancy. Vitamin D level 44 and PTH 35. Calcitriol level 16. Improving. Status post pamidronate and calcitonin given 07/16/2023. 4. Diabetes mellitus. 5. Hypertension with chronic kidney disease. Stable. Plan: Maintain IV fluids. Discontinue vitamin D 07/16/23. Follow-up pending workup for hypercalcemia. Follow-up parathyroid nuclear scan. Continue to assess daily for need for renal replacement therapy. Lactulose as needed for constipation. Avoid nephrotoxins, including NSAIDs and Fleet enemas. Check renal uls.
[2023-07-17 13:35] LABS: Glucose,Whole Blood 192 mg/dL (70-110)
--- NOTE | 2023-07-17 14:32 | US ---
EXAMINATION TYPE: US kidneys/renal and bladder DATE OF EXAM: 07/17/2023 COMPARISON: NONE CLINICAL INDICATION: Male, 68 years old with history of abdulkadir; ABDULKADIR EXAM MEASUREMENTS: Right Kidney: 9.4 x 5.2 x 5.0 cm Left Kidney: 11.8 x 6.0 x 5.3 cm Difficult scan due to morbid obese pt and immobility Right Kidney: No evidence of hydro, lower pole gassed out Left Kidney: No evidence of hydro, "Sweat Sign" at lower pole Bladder: wnl Bilateral Jets seen: No No hydronephrosis or nephrolithiasis. Small amount of fluid adjacent to the left kidney IMPRESSION: 1. No hydronephrosis or nephrolithiasis. Renal cortical thickness are within normal limits. Small sakshi unt of fluid surrounding the left kidney. Can be associated with chronic medical renal disease or inf ection.
--- NOTE | 2023-07-17 14:34 | NM ---
EXAMINATION TYPE: NM parathyroid w/spect DATE OF EXAM: 07/17/2023 COMPARISON: NONE CLINICAL INDICATION: Male, 68 years old with history of hypercalcemia; TECHNIQUE: Following administration of 25.9 mCi Tc99m Sestamibi. Anterior projection images of the neck and ches t were obtained 10 minutes and 3 hours post injection. SPECT images of the neck and chest were [place] and reconstructed in three axes. FINDINGS: Thyroid tracer washout: Delayed images demonstrate near-complete tracer washout from the thyroid. Parathyroid uptake: None. The two-hour delayed images do not demonstrate any focal abnormal persisten t uptake in the region of the parathyroid glands to suggest parathyroid adenoma. Normal uptake: There is physiological tracer uptake in the myocardium, liver, salivary glands, and th yroid gland. IMPRESSION: Normal parathyroid imaging study. No evidence for mediastinal uptake to suggest mediastinal parathyro id adenoma
[2023-07-17] MEDS: ISOSORBIDE MONONITRATE ER 60 MG TAB.ER.24H PO SCH (16:36)
[2023-07-17 17:16] LABS: Glucose,Whole Blood 219 mg/dL (70-110)
[2023-07-17 20:22] LABS: Glucose,Whole Blood 216 mg/dL (70-110)
[2023-07-17] MEDS: LACTULOSE 20 GM/30 ML CUP PO PRN (20:31)
[2023-07-17] MEDS: ATORVASTATIN 20 MG TAB PO SCH (21:43)
[2023-07-17] MEDS: ASPIRIN 81 MG PO SCH (21:43)
[2023-07-17] MEDS: EZETIMIBE 10 MG TAB PO SCH (21:43)
--- NOTE | 2023-07-17 23:15 | P.PN ---
Subjective Progress Note Date: 07/17/23 Patient is evaluated today resting in bed family at the bedside. He is being followed by nephrology for the acute kidney injury with creatinine up to 4.8 today. Also with a history of partial parathyroidectomy and elevated calcium level status post IV pamidronate infusion and calcitonin. Patient most recent calcium level is 10.9 scheduled to undergo PTH scan today. Abdominal xray showing severe constipation and bilateral nephrolisthiasis. Review of Systems Constitutional: Denied any fatigue denied any fever. Cardio vascular: denied any chest pain, palpitations Gastrointestinal: denied any nausea, vomiting, diarrhea Pulmonary: Denied any shortness of breath cough Neurologic denied any new focal deficits All inpatient medications were reviewed and appropriate changes in these medications as dictated in the interval history and assessment and plan. PHYSICAL EXAMINATION: GENERAL: The patient is alert and oriented x3, not in any acute distress. Well developed, well nourished. HEENT: Pupils are round and equally reacting to light. EOMI. No scleral icterus. No conjunctival pallor. Normocephalic, atraumatic. No pharyngeal erythema. No thyromegaly. CARDIOVASCULAR: S1 and S2 present. No murmurs, rubs, or gallops. PULMONARY: Chest is clear to auscultation, no wheezing or crackles. ABDOMEN: Soft, nontender, nondistended, normoactive bowel sounds. No palpable organomegaly. MUSCULOSKELETAL: No joint swelling or deformity. EXTREMITIES: No cyanosis, clubbing, or pedal edema. NEUROLOGICAL: Gross neurological examination did not reveal any focal deficits. SKIN: No rashes. Assessment and Plan Acute kidney injury on chronic kidney disease stage IV. ABDULKADIR due to acute tubular necrosis vs. advancing renal disease. Followed by nephrology follow up daily addressing for need of starting hemodialysis -History of partial thyroidectomy with hypercalcemia treated with pamidronate and calcitonin most recent level 10.9. Patient to undergo PTH scan today. Continue on IV fluids and repeat labs in the AM. -Constipation will be treated with enema and lactulose patient does have issues with constipation. Recommending to discharge on bowel regimen. 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 -Diabetes Mellitus type 2 continue accuchecks achs and sliding scale insulin will add meal time insulin for improved glycemic control. -Hypertension continue on home medications clonidine, hydralazine, carvedilol and amlodipine. -Hyperlipidemia on statin therapy. -Hx of factor V -Obesity GI prophylaxis: stop protonix begin pepcid. DVT prophylaxis: subcu heparin Full Code The impression and plan of care has been dictated by Aspen Moody, Nurse Practitioner as directed. Dr. Mayra MD I have performed a history and physical examination and medical decision making of this patient, discussed the same with the dictator, and agree with the dictators assessment and plan as written, documented as a scribe. Based on total visit time, I have performed more than 50% of this visit. Objective - Vital Signs Vital signs: Vital Signs Temp 98.7 F 07/17/23 07:14 Pulse 83 07/17/23 07:14 Resp 20 07/17/23 07:14 BP 143/77 07/17/23 07:14 Pulse Ox 94 L 07/17/23 07:14 FiO2 Intake & Output 07/16/23 07/17/23 07/17/23 18:59 06:59 18:59 Output Total 700 300 Balance -700 -300 Output: Urine 700 300 Other: Voiding Method Toilet Toilet Urinal Urinal # Voids 3 1 - Labs CBC & Chem 7: 07/17/23 05:49 07/17/23 05:49 Labs: Abnormal Lab Results - Last 24 Hours (Table) 07/14/23 07/16/23 07/16/23 Range/Units 14:52 07:20 07:20 RBC 3.62 L (4.40-5.60) X 10*6/uL Hgb 10.8 L (13.0-17.0) g/dL Hct 33.7 L (39.6-50.0) % Immature Gran # 0.06 H (0.00-0.04) X 10*3/uL Monocytes # 1.10 H (0.20-1.00) X 10*3/uL Eosinophils # 0.52 H (0.04-0.35) X 10*3/uL Anion Gap 14.40 H (4.00-12.00) mmol/L BUN 42.1 H (9.0-27.0) mg/dL Creatinine 5.0 H (0.6-1.5) mg/dL Est GFR (CKD-EPI) 12 L (>=60) BUN/Creatinine Ratio 8.42 L (12.00-20.00) Ratio Glucose 113 H (70-110) mg/dL POC Glucose (mg/dL) (70-110) mg/dL Calcium 11.9 H (8.7-10.3) mg/dL Total Bilirubin 0.2 L (0.3-1.2) mg/dL Vit D 1,25-Dihydroxy 16 L (20 - 79) pg/mL 07/16/23 07/16/23 07/16/23 Range/Units 12:13 17:08 20:19 RBC (4.40-5.60) X 10*6/uL Hgb (13.0-17.0) g/dL Hct (39.6-50.0) % Immature Gran # (0.00-0.04) X 10*3/uL Monocytes # (0.20-1.00) X 10*3/uL Eosinophils # (0.04-0.35) X 10*3/uL Anion Gap (4.00-12.00) mmol/L BUN (9.0-27.0) mg/dL Creatinine (0.6-1.5) mg/dL Est GFR (CKD-EPI) (>=60) BUN/Creatinine Ratio (12.00-20.00) Ratio Glucose (70-110) mg/dL POC Glucose (mg/dL) 160 H 235 H 160 H (70-110) mg/dL Calcium (8.7-10.3) mg/dL Total Bilirubin (0.3-1.2) mg/dL Vit D 1,25-Dihydroxy (20 - 79) pg/mL 07/17/23 Range/Units 07:12 RBC (4.40-5.60) X 10*6/uL Hgb (13.0-17.0) g/dL Hct (39.6-50.0) % Immature Gran # (0.00-0.04) X 10*3/uL Monocytes # (0.20-1.00) X 10*3/uL Eosinophils # (0.04-0.35) X 10*3/uL Anion Gap (4.00-12.00) mmol/L BUN (9.0-27.0) mg/dL Creatinine (0.6-1.5) mg/dL Est GFR (CKD-EPI) (>=60) BUN/Creatinine Ratio (12.00-20.00) Ratio Glucose (70-110) mg/dL POC Glucose (mg/dL) 168 H (70-110) mg/dL Calcium (8.7-10.3) mg/dL Total Bilirubin (0.3-1.2) mg/dL Vit D 1,25-Dihydroxy (20 - 79) pg/mL Microbiology - Last 24 Hours (Table) 07/15/23 12:57 Blood Culture - Preliminary Blood Assessment and Plan Time with Patient: Less than 30
[2023-07-18] MEDS: SODIUM CHLORIDE 0.9% 1,000 ML IV SCH (05:46)
[2023-07-18] MEDS: HYDROcodone/APAP 5-325MG 1 EACH TAB PO PRN (06:24)
[2023-07-18 07:25] LABS: Glucose,Whole Blood 183 mg/dL (70-110)
[2023-07-18] MEDS: LACTULOSE 20 GM/30 ML CUP PO PRN (08:24)
[2023-07-18] MEDS: amLODIPine 5 MG TAB PO SCH (08:24)
[2023-07-18] MEDS: cloNIDine HCL 0.2 MG TAB PO SCH (08:24)
[2023-07-18] MEDS: hydrALAZINE HCL 50 MG TAB PO SCH (08:24)
[2023-07-18] MEDS: FERROUS SULFATE 325 MG TAB PO SCH (08:24)
[2023-07-18] MEDS: carvediloL 12.5 MG TAB PO SCH (08:24)
[2023-07-18] MEDS: INSULIN ASPART (NovoLOG) 100 UNIT/ML VIAL SQ SCH ×4 (08:25→12:58)
[2023-07-18] MEDS ORDERED: FAMOTIDINE 20 MG TAB PO SCH (09:00)
[2023-07-18] MEDS ORDERED: HEPARIN SODIUM,PORCINE 5,000 UNIT/ML 1 ML VIAL SQ SCH (09:00)
--- NOTE | 2023-07-18 10:01 | P.CRDCN ---
History of Present Illness History of present illness: HISTORY OF PRESENT ILLNESS: This is a 68-year-old male with a past medical history significant for chronic kidney disease, diabetes, hypertension, hyperlipidemia, and flash pulmonary edema. Patient follows with a Dr. Grijalva. We have been asked to see the patient in consultation for chest pain. Patient is admitted to the hospital secondary to acute kidney injury and hypercalcemia. Patient examined at the bedside. Patient reports having a brief episode overnight of left-sided chest discomfort that radiated into his arm. EKG was obtained and was nonischemic. Troponins are negative 2. Patient denies having any further episodes of chest discomfort. He denies any shortness of breath. He is hoping to be discharged home today. Patient's blood pressure remains elevated with a systolic in the 160s. * EKG reveals sinus mechanism with first-degree AV block. No signs of acute ischemia. * Chest xray negative for acute process * Laboratory data: Troponin negative 2 REVIEW OF SYSTEMS: At the time of my exam: CONSTITUTIONAL: Denies fever or chills. HEENT: Denies blurred vision, vision changes, or eye pain. Denies hemoptysis CARDIOVASCULAR: Denies chest pain. Denies orthopnea. Denies PND. Denies palpitations RESPIRATORY: Denies shortness of breath. GASTROINTESTINAL: Denies abdominal pain. Denies nausea or vomiting. HEMATOLOGIC: Denies bleeding disorders. GENITOURINARY: Denies any blood in urine. SKIN: Denies pruitis. Denies rash. PHYSICAL EXAM: VITAL SIGNS: Reviewed. GENERAL: Well-developed in no acute distress. HEENT: Head is normocephalic. Pupils are equal, round. Sclerae anicteric. Mucous membranes of the mouth are moist. Neck supple. No JVD or thyromegaly LUNGS: Respirations even and unlabored. Lungs essentially clear to auscultation bilaterally. HEART: Regular rate and rhythm. S1 and S2 heard. ABDOMEN: Soft. Nondistended. Nontender. EXTREMITIES: Normal range of motion. No clubbing or cyanosis. Peripheral pulses intact. No lower extremity edema NEUROLOGIC: Awake and alert. Oriented x 3. ASSESSMENT: Pain, noncardiac, troponin negative 2 Acute on chronic kidney disease Hypercalcemia Hypertension, uncontrolled Hyperlipidemia Diabetes History of flash pulmonary edema History of partial parathyroidectomy PLAN: An acute coronary event has been ruled out Obtain 2-D echo to assess cardiac structure and function Continue to monitor blood pressure No changes to antihypertensive regimen today. Will reevaluate patient tomorrow if he is still the hospital for possible modifications in his regimen. The patient is currently stable for discharge home today from a cardiac standpoint Further recommendations pending patient's course Nurse practitioner note has been reviewed by physician. Signing provider agrees with the documented findings, assessment, and plan of care. Past Medical History Past Medical History: Diabetes Mellitus, Hyperlipidemia, Hypertension, Renal Disease Additional Past Medical History / Comment(s): DM type 2 ,Factor V. History of Any Multi-Drug Resistant Organisms: C-DIFF Date of last positivie culture/infection: 06/04/23 MDRO Source:: stool Additional Past Surgical History / Comment(s): parathyroid removal 2017, bloodclot filter in groin 2013 Past Psychological History: No Psychological Hx Reported Smoking Status: Never smoker Past Alcohol Use History: None Reported Past Drug Use History: None Reported Medications and Allergies Home Medications Medication Instructions Recorded Confirmed Type Aspirin EC [Ecotrin Low Dose] 81 mg PO HS@222907/14/23 07/14/23 History Cholecalciferol [Vitamin D3 (25 50 mcg PO DAILY 07/14/23 07/14/23 History Mcg = 1000 Iu)] Ezetimibe/Simvastatin 1 tab PO HS@222907/14/23 07/14/23 History [Ezetimibe/Simvastatin 10-40 mg] Ferrous Sulfate [Feosol] 325 mg PO DAILY 07/14/23 07/14/23 History Furosemide [Lasix] 40 mg PO DAILY 07/14/23 07/14/23 History HYDROcodone/APAP 7.5-325MG [[place] 0.5 tab PO Q3H 07/14/23 07/14/23 History 7.5-325] Insulin Aspart [NovoLOG Flexpen] 20 units SQ AC-TID 07/14/23 07/14/23 History Insulin Glargine,Hum.rec.anlog 30 units SQ HS 07/14/23 07/14/23 History [Lantus Solostar Pen] Insulin Glargine,Hum.rec.anlog 35 units SQ DAILY 07/14/23 07/14/23 History [Lantus Solostar Pen] Isosorbide Mononitrate ER [Imdur] 60 mg PO DAILY@0 07/14/23 07/14/23 History Spironolactone [Aldactone] 25 mg PO BID@1730,2230 07/14/23 07/14/23 History amLODIPine [Norvasc] 5 mg PO BID 07/14/23 07/14/23 History carvediloL [Coreg] 25 mg PO BID 07/14/23 07/14/23 History cloNIDine HCL 0.2 mg PO TID 07/14/23 07/14/23 History hydrALAZINE HCL [Apresoline] 100 mg PO TID 07/14/23 07/14/23 History Allergies Allergy/AdvReac Type Severity Reaction Status Date / Time Penicillins Allergy Unknown Verified 07/14/23 19:28 Childhood Sulfa (Sulfonamide Allergy Rash/Hives Verified 07/14/23 19:28 Antibiotics) Physical Exam Vitals: Vital Signs Temp Pulse Resp BP BP Pulse Ox 07/18/23 07:22 98.9 F 73 16 164/87 93 L 07/18/23 02:00 97.8 F 62 16 149/84 92 L 07/17/23 21:46 75 149/81 07/17/23 19:35 97.5 F L 75 16 150/78 93 L 07/17/23 13:36 97.3 F L 74 18 162/85 95 Intake and Output 07/17/23 07/18/23 07/18/23 22:59 06:59 14:59 Intake Total 900 Output Total 800 Balance 900 -800 Intake: Intake, IV Titration 900 Amount Sodium Chloride 0.9% 1, 900 000 ml @ 75 mls/hr IV . [id number] [facility] Rx#:[id number] Output: Urine 400 Post Void Residual 400 Other: Voiding Method Toilet Urinal Results 07/17/23 05:49 07/17/23 05:49 Cardiac Enzymes 07/17/23 07/18/23 07/18/23 Range/Units 05:49 00:55 06:27 AST 13 L (14-35) U/L Troponin I 0.015 0.013 (0.000-0.034) ng/mL CBC 07/17/23 Range/Units 05:49 WBC 9.86 (4.50-10.00) X 10*3/uL RBC 3.64 L (4.40-5.60) X 10*6/uL Hgb 10.9 L (13.0-17.0) g/dL Hct 34.5 L (39.6-50.0) % Plt Count 296 (140-440) X 10*3/uL Comprehensive Metabolic Panel 07/17/23 Range/Units 05:49 Sodium 141 (135-145) mmol/L Potassium 5.2 (3.5-5.5) mmol/L Chloride 107 (96-109) mmol/L Carbon Dioxide 21.8 (21.6-31.8) mmol/L BUN 42.2 H (9.0-27.0) mg/dL Creatinine 4.8 H (0.6-1.5) mg/dL Glucose 161 H (70-110) mg/dL Calcium 10.9 H (8.7-10.3) mg/dL AST 13 L (14-35) U/L ALT 14 (10-49) U/L Alkaline Phosphatase 45 (41-126) U/L Total Protein 6.7 (6.2-8.2) g/dL Albumin 4.2 (3.8-4.9) g/dL Current Medications Generic Name Dose Route Start Last Admin Trade Name Freq PRN Reason Stop Dose Admin Acetaminophen 650 mg 07/14/23 17:42 Acetaminophen Tab 325 Mg Tab PO Q6HR PRN Mild Pain or Fever > 100.5 Hydrocodone Bitart/Acetaminophen 1 each 07/14/23 17:42 07/18/23 06:24 Hydrocodone/Apap 5-325mg 1 Each Tab PO 1 each Q4HR PRN Administration Moderate Pain (Scale 4 to 6) Amlodipine Besylate 5 mg 07/15/23 09:00 07/18/23 08:24 Amlodipine 5 Mg Tab PO 5 mg BID HOANG Administration Aspirin 81 mg 07/15/23 22:30 07/17/23 21:43 Aspirin 81 Mg PO 81 mg HS@2230 HOANG Administration Atorvastatin Calcium 20 mg 07/15/23 22:30 07/17/23 21:43 Atorvastatin 20 Mg Tab PO 20 mg HS@2230 HOANG Administration Carvedilol 25 mg 07/15/23 09:00 07/18/23 08:24 Carvedilol 12.5 Mg Tab PO 25 mg AC-BID HOANG Administration Clonidine 0.2 mg 07/15/23 09:00 07/18/23 08:24 Clonidine Hcl 0.2 Mg Tab PO 0.2 mg TID HOANG Administration Ezetimibe 10 mg 07/15/23 22:30 07/17/23 21:43 Ezetimibe 10 Mg Tab PO 10 mg HS@2230 HOANG Administration Famotidine 20 mg 07/18/23 09:00 07/18/23 08:24 Famotidine 20 Mg Tab PO 20 mg BID HOANG Administration Ferrous Sulfate 325 mg 07/15/23 09:00 07/18/23 08:24 Ferrous Sulfate 325 Mg Tab PO 325 mg DAILY HOANG Administration Heparin Sodium (Porcine) 5,000 unit 07/18/23 09:00 07/18/23 08:25 Heparin Sodium,Porcine 5,000 Unit/Ml 1 Ml Vial SQ 5,000 unit Q12HR HOANG Administration Hydralazine HCl 100 mg 07/15/23 09:00 07/18/23 08:24 Hydralazine Hcl 50 Mg Tab PO 100 mg TID HOANG Administration Sodium Chloride 1,000 mls @ 75 mls/hr 07/16/23 10:45 07/18/23 05:46 Saline 0.9% IV 75 mls/hr .[id number] HOANG Administration Insulin Aspart 0 unit 07/15/23 12:30 07/18/23 08:25 Insulin Aspart (Novolog) 100 Unit/Ml Vial SQ 2 unit ACHS [facility] Administration Protocol Insulin Aspart 3 unit 07/18/23 07:30 07/18/23 08:25 Insulin Aspart (Novolog) 100 Unit/Ml Vial SQ 3 unit AC-TID HOANG Administration Isosorbide Mononitrate 60 mg 07/15/23 17:30 07/17/23 16:36 Isosorbide Mononitrate Er 60 Mg Tab.Er.24h PO 60 mg DAILY@1730 [facility] Administration Lactulose 10 gm 07/17/23 12:25 07/18/23 08:24 Lactulose 20 Gm/30 Ml Cup PO 07/22/23 12:26 10 gm TID PRN Administration Constipation Metoclopramide HCl 5 mg 07/16/23 22:14 07/16/23 22:25 Metoclopramide 5 Mg/Ml 2 Ml Vial IVP 5 mg Q6HR PRN Administration Nausea And Vomiting Naloxone HCl 0.2 mg 07/14/23 17:42 Naloxone 0.4 Mg/Ml 1 Ml Vial IV Q2M PRN Opioid Reversal Ondansetron HCl 4 mg 07/14/23 17:42 07/17/23 11:51 Ondansetron 4 Mg/2 Ml Vial IVP 4 mg Q8HR PRN Administration Nausea And Vomiting Intake and Output 07/17/23 07/18/23 07/18/23 22:59 06:59 14:59 Intake Total 900 Output Total 800 Balance 900 -800 Intake: Intake, IV Titration 900 Amount Sodium Chloride 0.9% 1, 900 000 ml @ 75 mls/hr IV . [id number] [facility] Rx#:[id number] Output: Urine 400 Post Void Residual 400 Other: Voiding Method Toilet Urinal 07/17/23 05:49 07/17/23 05:49
[2023-07-18 11:17] LABS: BUN/Creat Ratio 8.64 Ratio (12.00-20.00); Blood Urea Nitrogen 38.9 mg/dL (9.0-27.0); Carbon Dioxide 20.2 mmol/L (21.6-31.8); Chloride 107 mmol/L (96-109); Glucose 160 mg/dL (70-110); Magnesium 2.5 mg/dL (1.5-2.4); Phosphorus 2.6 mg/dL (2.4-5.1); Potassium 4.6 mmol/L (3.5-5.5); Sodium 139 mmol/L (135-145)
--- NOTE | 2023-07-18 11:42 | P.PN ---
Subjective Patient is seen in follow-up for acute kidney injury on chronic kidney disease and hypercalcemia. Calcium level normal today. Currently on IV fluids. Has been voiding. No vomiting or diarrhea. Renal function also slightly improved. Requesting regular food. Vital signs are stable. General: No acute distress. HEENT: Head exam is unremarkable. LUNGS: Notable rhonchi or wheezes. HEART: Rate and Rhythm are regular. ABDOMEN: Nontender. Obese. EXTREMITITES: No edema. Objective - Vital Signs Vital signs: Vital Signs Temp 98.9 F 07/18/23 07:22 Pulse 73 07/18/23 07:22 Resp 16 07/18/23 07:22 BP 148/80 07/18/23 09:05 Pulse Ox 93 L 07/18/23 07:22 FiO2 Intake & Output 07/17/23 07/18/23 07/18/23 18:59 06:59 18:59 Intake Total 900 Output Total 673 800 Balance 227 -800 Intake: Intake, IV Titration 900 Amount Sodium Chloride 0.9% 1, 900 000 ml @ 75 mls/hr IV . [id number] [facility] Rx#:[id number] Output: Urine 450 400 Post Void Residual 223 400 Other: Voiding Method Toilet Toilet Urinal Urinal # Voids 1 - Labs CBC & Chem 7: 07/17/23 05:49 07/18/23 06:21 Labs: Abnormal Lab Results - Last 24 Hours (Table) 07/17/23 07/17/23 07/17/23 Range/Units 13:34 17:14 20:18 Carbon Dioxide (21.6-31.8) mmol/L BUN (9.0-27.0) mg/dL Creatinine (0.6-1.5) mg/dL Est GFR (CKD-EPI) (>=60) BUN/Creatinine Ratio (12.00-20.00) Ratio Glucose (70-110) mg/dL POC Glucose (mg/dL) 192 H 219 H 216 H (70-110) mg/dL Magnesium (1.5-2.4) mg/dL 07/18/23 07/18/23 Range/Units 06:21 07:24 Carbon Dioxide 20.2 L (21.6-31.8) mmol/L BUN 38.9 H (9.0-27.0) mg/dL Creatinine 4.5 H (0.6-1.5) mg/dL Est GFR (CKD-EPI) 13 L (>=60) BUN/Creatinine Ratio 8.64 L (12.00-20.00) Ratio Glucose 160 H (70-110) mg/dL POC Glucose (mg/dL) 183 H (70-110) mg/dL Magnesium 2.5 H (1.5-2.4) mg/dL Microbiology - Last 24 Hours (Table) 07/15/23 12:57 Blood Culture - Preliminary Blood 07/16/23 12:00 Urine Culture - Final Urine,Clean Catch Assessment and Plan Plan: Assessment: 1. Acute kidney injury secondary to ATN versus progression of underlying chronic kidney disease. Creatinine peaked at 5.0 this admission and is 4.5 today. No hydronephrosis noted on kidney ultrasound. 2. Chronic kidney disease stage IV secondary to nephrosclerosis and diabetic kidney disease with baseline creatinine near 3 in March 2023. 3. Hypercalcemia with history of partial parathyroidectomy over 5 years ago. On vitamin D supplement daily - stopped 07/16/2023.. Denies personal history of malignancy. Vitamin D level 44 and PTH 35. No evidence of parathyroid adenoma noted on parathyroid nuclear scan. Calcitriol level 16. Improving. Status post pamidronate and calcitonin given 07/16/2023. 4. Diabetes mellitus. 5. Hypertension with chronic kidney disease. Stable. Plan: Maintain IV fluids. Discontinued vitamin D 07/16/23. Follow-up pending workup for hypercalcemia - serum IF pending. Lactulose as needed for constipation. Avoid nephrotoxins, including NSAIDs and Fleet enemas. Also advised not to take any calcium or vitamin D supplements at this time. Discussed initiating renal replacement therapy due to depressed GFR. Patient refusing to start renal replacement therapy at this time. Patient wants to pursue peritoneal dialysis.. Patient has an appointment next week. Blood work will be rechecked and if no improvement in GFR, he will be scheduled for PD catheter insertion. Case also discussed with primary team.
--- NOTE | 2023-07-18 11:42 | CA ---
Transthoracic Echo Report Name: Gianni Christopher Age: 68 Gender: M : 1955 Exam Date: 07/18/2023 10:33 Exam Location: [place] [facility] Ht (in): 69 Wt (lb): 260 Ordering Physician: Edna Stuart Attending/Referring Phys: [id number], Sade [employer] Dispatcher Radha Bowers [facility] Procedure CPT: Indications: LV function, HTN, CP Cardiac Hx: Technical Quality: Fair Contrast 1: Total Dose (mL): Contrast 2: Total Dose (mL): MEASUREMENTS (Male / Female) Normal Values 2D ECHO LV Diastolic Diameter PLAX 5.3 cm 4.2 - 5.9 / 3.9 - 5.3 cm LV Systolic Diameter PLAX 4.1 cm IVS Diastolic Thickness 1.2 cm 0.6 - 1.0 / 0.6 - 0.9 cm LVPW Diastolic Thickness 1.2 cm 0.6 - 1.0 / 0.6 - 0.9 cm LV Relative Wall Thickness 0.5 LVOT Diameter 2.0 cm Ascending Aorta Diameter 3.4 cm M-MODE Aortic Root Diameter MM 3.3 cm LA Systolic Diameter MM 4.7 cm LA Ao Ratio MM 1.4 AV Cusp Separation MM 2.3 cm DOPPLER AV Peak Velocity 200.5 cm/s AV Peak Gradient 16.1 mmHg AV Mean Velocity 136.6 cm/s AV Mean Gradient 8.5 mmHg AV Velocity Time Integral 42.9 cm LVOT Peak Velocity 122.1 cm/s LVOT Peak Gradient 6.0 mmHg LVOT Velocity Time Integral 23.3 cm LVOT Stroke Volume 74.6 cm??? LVOT Stroke Volume Index 32.3 ml/m??? LVOT Cardiac Index 2043.7 cm???/min???m??? AV Area Cont Eq vti 1.7 cm??? AV Area Cont Eq pk 2.0 cm??? Mitral E Point Velocity 71.7 cm/s Mitral A Point Velocity 116.4 cm/s Mitral E to A Ratio 0.6 MV Deceleration Time 270.2 ms LV E' Lateral Velocity 7.9 cm/s Mitral E to LV E' Lateral Ratio 9.1 LV E' Septal Velocity 4.9 cm/s Mitral E to LV E' Septal Ratio 14.6 TR Peak Velocity 199.0 cm/s TR Peak Gradient 15.8 mmHg Right Atrial Pressure 8.0 mmHg Pulmonary Artery Systolic Pressu 23.8 mmHg Right Ventricular Systolic Press 23.8 mmHg FINDINGS Left Ventricle Mildly increased left ventricular wall thickness. Left ventricular cavity size normal. Low normal left ventricular systolic function with no obvious regional wall motion abnormalities. Left ventricular ejection fraction is estimated at 50-55%. Right Ventricle Severe right ventricular dilatation. Right Atrium Mild right atrial dilatation. Left Atrium Mild left atrial dilatation. Mitral Valve Mitral valve thickened. Mitral annular calcification. Mild mitral regurgitation. Aortic Valve Trileaflet aortic valve. Trace aortic regurgitation. Tricuspid Valve Structurally normal tricuspid valve. Trace tricuspid regurgitation. Pulmonic Valve Pulmonic valve not well visualized. Pericardium Small pericardial effusion. Aorta Normal size aortic root and proximal ascending aorta. CONCLUSIONS LVH with left ventricular ejection fraction of 50-55% Previewed by: Dr. Rogelio Miller MD (Electronically Signed) Final Date: 18 July 2023 11:42
[2023-07-18] MEDS ORDERED: bisacodyL 10 MG SUPP RECTAL STA (12:27)
[2023-07-18 12:40] LABS: Glucose,Whole Blood 167 mg/dL (70-110)
[2023-07-18 13:22] VITALS: BP 149/90; PULSE 69; RESP 18; TEMP 99.4
[2023-07-18 14:16] LABS: Chol/HDL Ratio 5.21 Ratio; LDL Cholesterol,Calculated 48.3 mg/dL (0.0-131.0)
[2023-07-19] MEDS ORDERED: FAMOTIDINE 20 MG TAB PO SCH (09:00)
--- NOTE | 2023-07-21 16:22 | P.DS ---
Providers Date of admission: 07/14/23 17:41 Attending physician: Taye Chicas Consults: 07/14/23 17:42 Consult Physician Urgent Consulting Provider: Angela Lambert Consult Reason/Comments: Hypercalcemia, ABDULKADIR Do you want consulting provider notified?: Yes 07/18/23 02:46 Consult Physician Routine Consulting Provider: Rogelio Miller Consult Reason/Comments: Chest pain Do you want consulting provider notified?: Yes, Notify in am Primary care physician: Stated None Hospital Course: Final Diagnosis Acute kidney injury on chronic kidney disease stage IV. ABDULKADIR due to acute tubular necrosis vs. advancing renal disease. -Chest pain noncardiac in nature with negative troponins and normal LV function. -History of partial thyroidectomy with hypercalcemia treated with pamidronate and calcitonin -Constipation will be treated with enema and lactulose patient does have issues with constipation. 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 -Diabetes Mellitus type 2 -Hypertension -Hyperlipidemia . -Hx of factor V -Obesity Discharge Disposition Patient is stable for discharge home. He has a follow-up appointment with Dr. Valentine for for peritoneal dialysis catheter placement. At this time patient and family have opted out of hemodialysis like to explore peritoneal dialysis. Patient to avoid taking vitamin D and calcium supplementation. Recommending to discharge on bowel regimen to avoid constipation and avoid narcotic for pain management if possible. He has been started on lactulose twice a day as needed. Lasix and Aldactone have been discontinued for now. Patient repeat labs with CBC BMP and magnesium in 3 days. He has a follow-up scheduled with Dr. Junior on July 25, Dr. Lambert on December 22 recommended to see his PCP Dr. Barnett on discharge as well. Hospital Course This is a 68-year-old male with a past medical history significant for chronic kidney disease, diabetes, hypertension, hyperlipidemia. Patient is admitted to the hospital secondary to acute kidney injury and hypercalcemia. Nephrology was consulted. His creatinine on admission was elevated at 4.73 with a GFR of 12 calcium elevated at 12.9. Patient denies any chest pain or shortness of breath, he does complain of some nausea on admission but no vomiting or diarrhea. Chest x-ray on admission was negative for acute pulmonary process. Abdominal x-ray shows severe constipation with bilateral nephrolithiasis. Abdomen bladder ultrasound shows no hydronephrosis or no nephrolithiasis there is renal cortical thickness is normal limits small amount of fluid from the left kidney cam be associated with chronic medical renal disease or infection. He did receive IV pamidronate infusion and calcitonin on 07/16 for the elevated calcium level and also underwent a parathyroid scan which shows no evidence for mediastinal uptake to suggest mediastinal parathyroid adenoma this is a normal parathyroid imaging study. He has been hydrated and his vitamin D supplementation was also discontinued. The constipation was treated and he did have a large bowel movement. Nephrology discussed renal replacement therapy with the patient they are agreeable for peritoneal dialysis at this time and he has appointment next week to follow up with his sulfur burner as well as Dr. Valentine with surgical services to undergo dialysis catheter placement. Patient did experience episode of left-sided chest discomfort which was felt to be noncardiac in nature he was evaluated by cardiology with normal troponins and normal LV function by echocardiogram he also had an unremarkable EKG. Cardiology felt this was noncardiac. His most recent laboratory data White blood cell count of 9.86, hemoglobin 10.9, sodium 139, potassium 4.6, BUN of 38.9, creatinine of 4.5, GFR of 13, glucose of 160s, phosphorus level of 2.6, magnesium level II.5, troponin levels were negative 3 and a calcium level is now 10.0 which is considered normal. Additional blood work includes a angiotensin-converting enzyme of 16, vitamin D 25-hydroxy at 44.1, vitamin D 1, 25dihydroxy at 16, acetone level of 0.13, TSH is 0.867, parathyroid hormone intact at 35.4 and 44.0. He had a cholesterol panel done showing triglyceride level of 211, cholesterol level of 122, LDL level of 48.3 and an HDL level of 21.50. His urinalysis was showing 1+ proteinuria and his viral panel was negative for Covid influenza and RSV. He is currently denying any chest pain or shortness of breath no nausea vomiting or diarrhea he is tolerating diet he would like to go home to continue his outpatient workup as mentioned. Please see medication reconciliation for a list of current medication. Thank you for allowing us to participate in the care of this patient. The impression and plan of care has been dictated by Aspen Moody, Nurse Practitioner as directed. Dr. Mayra MD I have performed a history and physical examination and medical decision making of this patient, discussed the same with the dictator, and agree with the dictators assessment and plan as written, documented as a scribe. Based on total visit time, I have performed more than 50% of this visit. Patient Condition at Discharge: Fair Plan - Discharge Summary Discharge Rx Participant: No New Discharge Prescriptions: New Famotidine [Pepcid] 20 mg PO DAILY #30 tab Lactulose [Cephulac] 10 gm PO BID #150 ml Continue amLODIPine [Norvasc] 5 mg PO BID cloNIDine HCL 0.2 mg PO TID hydrALAZINE HCL [Apresoline] 100 mg PO TID Isosorbide Mononitrate ER [Imdur] 60 mg PO DAILY@173 Insulin Glargine,Hum.rec.anlog [Lantus Solostar Pen] 30 units SQ HS carvediloL [Coreg] 25 mg PO BID Ezetimibe/Simvastatin [Ezetimibe/Simvastatin 10-40 mg] 1 tab PO HS@2230 Ferrous Sulfate [Iron (65 MG Elemental)] 325 mg PO DAILY Aspirin EC [Ecotrin Low Dose] 81 mg PO HS@2230 Changed HYDROcodone/APAP 7.5-325MG [[place] 7.5-325] 1 tab PO Q8H #0 Insulin Aspart [NovoLOG Flexpen] 10 units SQ AC-TID #0 Discontinued Spironolactone [Aldactone] 25 mg PO BID@173,2229 Insulin Glargine,Hum.rec.anlog [Lantus Solostar Pen] 35 units SQ DAILY Furosemide [Lasix] 40 mg PO DAILY Cholecalciferol [Vitamin D3 (25 Mcg = 1000 Iu)] 50 mcg PO DAILY Discharge Medication List Aspirin EC [Ecotrin Low Dose] 81 mg PO HS@22307/14/23 [History] Ezetimibe/Simvastatin [Ezetimibe/Simvastatin 10-40 mg] 1 tab PO HS@22307/14/23 [History] Ferrous Sulfate [Iron (65 MG Elemental)] 325 mg PO DAILY 07/14/23 [History] Insulin Glargine,Hum.rec.anlog [Lantus Solostar Pen] 30 units SQ HS 07/14/23 [History] Isosorbide Mononitrate ER [Imdur] 60 mg PO DAILY@1730 07/14/23 [History] amLODIPine [Norvasc] 5 mg PO BID 07/14/23 [History] carvediloL [Coreg] 25 mg PO BID 07/14/23 [History] cloNIDine HCL 0.2 mg PO TID 07/14/23 [History] hydrALAZINE HCL [Apresoline] 100 mg PO TID 07/14/23 [History] Famotidine [Pepcid] 20 mg PO DAILY #30 tab 07/18/23 [Rx] HYDROcodone/APAP 7.5-325MG [[place] 7.5-325] 1 tab PO Q8H #0 07/18/23 [Rx] Insulin Aspart [NovoLOG Flexpen] 10 units SQ AC-TID #0 07/18/23 [Rx] Lactulose [Cephulac] 10 gm PO BID #150 ml 07/18/23 [Rx] Follow up Appointment(s)/Referral(s): Vinay Valentine MD [Medical Doctor] - 07/25/23 2:20 pm Angela Lambert MD [STAFF PHYSICIAN] - 07/24/23 1:20 pm Nishi Barnett MD [STAFF PHYSICIAN] - 1 Week (Please call the office to schedule a follow up appointment) Ambulatory/Diagnostic Orders: Basic Metabolic Panel [LAB.AMB] Time Frame: 3 Days, Location: None Selected Complete Blood Count w/diff [LAB.AMB] Time Frame: 3 Days, Location: None Selected Magnesium [LAB.AMB] Time Frame: 3 Days, Location: None Selected Patient Instructions/Handouts: Famotidine (By mouth), Lactulose (By mouth), Acute Kidney Injury (DC), Hypercalcemia (DC) Activity/Diet/Wound Care/Special Instructions: Activity limited until follow up Repeat blood work (CBC, BMP and magnesium) in 1 week - see prescription Follow up with Dr Valentine as scheduled . Follow up with Dr. Lambert in 1 week Discharge Disposition: HOME SELF-CARE
== END 2023-07-18 15:15 | disposition home or self-care (01) | DRG 683 ==
LOC: EC 12:43 → 5NMEDONC 17:41
PROVIDERS: ADMIT Hospitalist; ATTEND Hospitalist
DX: N17.0 Acute kidney failure with tubular necrosis (principal); D68.51 Activated protein C resistance; E11.22 Type 2 diabetes mellitus with diabetic chronic kidney disease; I12.9 Hypertensive chronic kidney disease with stage 1 through stage 4 chronic kidney disease, or unspecified chronic kidney disease; N18.4 Chronic kidney disease, stage 4 (severe); E89.2 Postprocedural hypoparathyroidism; D72.829 Elevated white blood cell count, unspecified; E66.9 Obesity, unspecified; Z68.38 Body mass index [BMI] 38.0-38.9, adult; Z79.4 Long term (current) use of insulin; E83.52 Hypercalcemia; Z11.52 Encounter for screening for COVID-19; E86.9 Volume depletion, unspecified; I44.0 Atrioventricular block, first degree; K59.00 Constipation, unspecified; N20.0 Calculus of kidney; Z79.899 Other long term (current) drug therapy; Z53.29 Procedure and treatment not carried out because of patient's decision for other reasons; Z88.0 Allergy status to penicillin; Z88.2 Allergy status to sulfonamides; Z86.19 Personal history of other infectious and parasitic diseases
CPT/HCPCS: 36415; 71045; 74019; 76770; 78071; 80048; 80053; 80061; 81001; 82164; 82306; 82330; 82652; 83690; 83735; 83970; 84100; 84145; 84443; 84484; 85025; 86334; 86335; 87040; 87086; 87636; 93005; 93306; 96360; 96361; 99285

== ENCOUNTER 2023-08-03 05:56 | Day surgery (SDC) | payer MEDICARE ==
[~2023-08-03 05:56] MED LIST: ACETAMINOPHEN TAB 500 MG TAB PO PRN; DEXAMETHASONE SOD PHOSPHATE 4 MG/ML 1 ML VIAL IV ONE; HEPARIN SODIUM,PORCINE 5,000 UNIT/ML 1 ML VIAL SQ PRN; HYDROmorphone 0.5 MG/0.5 ML SYRINGE IVP PRN; LACTATED RINGERS 1,000 ML IV SCH; LIDOCAINE 1% (10MG/ML) FOR IV START INTRADERMA PRN; ONDANSETRON 4 MG/2 ML VIAL IVP ONE; droPERidol 5 MG/2 ML VIAL IVP ONE
[2023-08-03] MEDS ORDERED: LACTATED RINGERS 1,000 ML IV ONE (06:45)
[2023-08-03] MEDS ORDERED: ONDANSETRON 4 MG/2 ML VIAL ONE (07:01)
[2023-08-03 07:20] LABS: Glucose,Whole Blood 222 mg/dL (70-110)
[2023-08-03] MEDS ORDERED: INSULIN ASPART (NovoLOG) 100 UNIT/ML VIAL SQ ONE (07:25)
[2023-08-03] MEDS ORDERED: SUCCINYLCHOLINE CHLORIDE 200 MG/10 ML VIAL IV ONE (07:28)
[2023-08-03] MEDS ORDERED: PROPOFOL 10 MG/ML 20 ML VIAL IV ONE (07:28)
[2023-08-03] MEDS ORDERED: MIDAZOLAM 2 MG/2 ML VIAL ONE (07:28)
[2023-08-03] MEDS ORDERED: LIDOCAINE 1% INJ 10MG/ML (20 ML MDV) ONE (07:28)
[2023-08-03] MEDS ORDERED: fentaNYL (PF) 50 MCG/ML 2 ML AMP ONE (07:28)
[2023-08-03 07:30] LABS: Basophils # (A) 0.1 k/uL (0-0.2); Basophils % (A) 1 %; Eosinophils # (A) 0.2 k/uL (0-0.7); Eosinophils % (A) 2 %; HCT 33.5 % (39.0-53.0); HGB 11.1 gm/dL (13.0-17.5); Lymphocytes # (A) 1.2 k/uL (1.0-4.8); Lymphocytes % (A) 13 %; MCH 29.6 pg (25.0-35.0); MCHC 33.1 g/dL (31.0-37.0); MCV 89.3 fL (80.0-100.0); Mean Platelet Volume 7.4; Monocytes # (A) 0.6 k/uL (0-1.0); Monocytes % (A) 7 %; Neutrophils # (A) 7.2 k/uL (1.3-7.7); Neutrophils % (A) 75 %; Platelet Count 285 k/uL (150-450); RBC 3.75 m/uL (4.30-5.90); RDW 14.2 % (11.5-15.5); WBC 9.6 k/uL (3.8-10.6)
[2023-08-03] MEDS ORDERED: SODIUM CHLORIDE 0.9% 1,000 ML IV ONE (07:33)
[2023-08-03 07:38] LABS: ALT 15 U/L (4-49); AST 18 U/L (17-59); African American GFR (CKD) 15 (>60 ml/min/1.73 sqM); Albumin 4.5 g/dL (3.5-5.0); Alkaline Phosphatase 58 U/L (38-126); Anion Gap 11 mmol/L; Blood Urea Nitrogen 50 mg/dL (9-20); Calcium 10.3 mg/dL (8.4-10.2); Carbon Dioxide 21 mmol/L (22-30); Chloride 104 mmol/L (98-107); Glucose 221 mg/dL (74-99); Non-African American GFR(CKD) 13 (>60 ml/min/1.73 sqM); Potassium 4.5 mmol/L (3.5-5.1); Sodium 136 mmol/L (137-145); Total Bilirubin 0.5 mg/dL (0.2-1.3); Total Protein 7.6 g/dL (6.3-8.2)
[2023-08-03] MEDS ORDERED: BUPIVACAINE (PF) 0.25% 30 ML VIAL SQ ONE ×2 (07:49→08:01)
[2023-08-03] MEDS ORDERED: HYDROcodone/APAP 5-325MG 1 EACH TAB PO PRN (08:32)
[2023-08-03] MEDS ORDERED: NALOXONE 0.4 MG/ML 1 ML VIAL IV PRN (08:32)
--- NOTE | 2023-08-03 08:34 | P.OP ---
Date of Procedure: 08/03/23 Procedure(s) Performed: PREOPERATIVE DIAGNOSIS: Renal failure POSTOPERATIVE DIAGNOSIS: Same PROCEDURE: Peritoneal dialysis catheter insertion SURGEON: Meme EBL: Minimal ANESTHESIA: Sedation plus local COMPLICATIONS: None OPERATIVE PROCEDURE: The patient was placed in the operative table in the supine position. The abdomen was prepped and draped in usual sterile fashion. A small vertical incision was made in the left paramedian location. Dissection down through the subcutaneous tissues took place using electrocautery. The anterior rectus was divided vertically using the scalpel. The rectus was bluntly. The posterior rectus was visualized. An 0 Vicryl pursestring was placed. A small opening in the posterior rectus fascia and peritoneum took place using a Metzenbaum scissors. There were no adhesions to the suture that was placed. The pigtail catheter was advanced into the pelvis over a stylette. No resistance was met. The inner cuff was secured to the fascia using the 0 Vicryl pursestring that was placed. The catheter was tunneled to an exit site in the left lateral lower quadrant. The catheter was connected to the 1 L bag of saline and approximated 800 mL of saline was easily introduced into the peritoneal cavity. The fluid was then allowed to evacuate. The majority of the fluid was returned. The anterior rectus fascia was then reapproximated using a running 0 Vicryl stitch. The subcutaneous tissues reprepped using 3-0 Vicryl sutures and the skin using 4-0 Monocryl sutures. The outpatient dialysis adapter was applied to the end of the catheter. Sterile dressings were then applied after skin glue was placed over the incision. DISPOSITION: Stable to recovery room
[2023-08-03] MEDS ORDERED: HYDROmorphone 0.5 MG/0.5 ML SYRINGE IVP ONE ×2 (08:41→09:00)
[2023-08-03 08:43] VITALS: TEMP 96.8
[2023-08-03] MEDS ORDERED: ALBUTEROL NEBULIZED 1.25 MG/3 ML INHALATION ONE (09:31)
[2023-08-03 09:42] VITALS: RESP 20
[2023-08-03 10:33] LABS: Glucose,Whole Blood 160 mg/dL (70-110)
[2023-08-03 10:42] VITALS: BP 113/71; PULSE 68
== END 2023-08-03 10:51 ==
LOC: OR 05:56
PROVIDERS: ATTEND Surgery
DX: N19 Unspecified kidney failure (principal); I11.0 Hypertensive heart disease with heart failure; I50.9 Heart failure, unspecified; E78.5 Hyperlipidemia, unspecified; E11.9 Type 2 diabetes mellitus without complications; Z90.49 Acquired absence of other specified parts of digestive tract; Z88.5 Allergy status to narcotic agent; Z88.0 Allergy status to penicillin; Z98.890 Other specified postprocedural states; Z79.899 Other long term (current) drug therapy
CPT/HCPCS: 80053; 85025; 49418; J2250; J0330; J1644; J0690; J2405; J2001; J3010; J2704; J1170; J0665

== ENCOUNTER 2024-05-08 01:43 | Emergency (ER) | payer MEDICARE ==
[2024-05-08 02:24] LABS: Glucose,Whole Blood 67 mg/dL (70-110)
[2024-05-08] MEDS: DEXTROSE 50% SYRINGE 50 ML IVP STA (02:28)
[2024-05-08 02:41] LABS: Basophils # (A) 0.1 k/uL (0-0.2); Basophils % (A) 1 %; Eosinophils # (A) 0.3 k/uL (0-0.7); Eosinophils % (A) 3 %; HCT 38.6 % (39.0-53.0); HGB 12.8 gm/dL (13.0-17.5); Lymphocytes # (A) 2.5 k/uL (1.0-4.8); Lymphocytes % (A) 22 %; MCH 30.4 pg (25.0-35.0); MCHC 33.3 g/dL (31.0-37.0); MCV 91.3 fL (80.0-100.0); Mean Platelet Volume 7.4; Monocytes # (A) 0.9 k/uL (0-1.0); Monocytes % (A) 8 %; Neutrophils # (A) 7.5 k/uL (1.3-7.7); Neutrophils % (A) 65 %; Platelet Count 321 k/uL (150-450); RBC 4.22 m/uL (4.30-5.90); RDW 14.1 % (11.5-15.5); WBC 11.5 k/uL (3.8-10.6)
[2024-05-08 02:50] LABS: ALT 17 U/L (4-49); AST 28 U/L (17-59); African American GFR (CKD) 20 (>60 ml/min/1.73 sqM); Albumin 4.3 g/dL (3.5-5.0); Alkaline Phosphatase 77 U/L (38-126); Anion Gap 9 mmol/L; Blood Urea Nitrogen 33 mg/dL (9-20); Carbon Dioxide 23 mmol/L (22-30); Chloride 106 mmol/L (98-107); Glucose 64 mg/dL (74-99); Magnesium 2.4 mg/dL (1.6-2.3); Non-African American GFR(CKD) 17 (>60 ml/min/1.73 sqM); Sodium 138 mmol/L (137-145); Total Bilirubin 0.4 mg/dL (0.2-1.3); Total Protein 7.2 g/dL (6.3-8.2)
[2024-05-08 03:02] LABS: Glucose,Whole Blood 187 mg/dL (70-110)
[2024-05-08 03:07] VITALS: PULSE 79
--- NOTE | 2024-05-08 03:10 | ED ---
General Adult HPI - General Chief complaint: Recheck/Abnormal Lab/Rx Stated complaint: abd labs Time Seen by Provider: 05/08/24 02:22 Source: patient Mode of arrival: ambulatory Limitations: no limitations - History of Present Illness Initial comments: Pleasant 68-year-old gentleman presenting today for hyperkalemia. Labs drawn on Sunday, showed potassium 8.6. Recalled on Sunday however did not hear phone until today. Patient has been running his dialysis peritoneal dialysis as usual. Denies chest pain shortness of breath, diarrhea vomiting or other symptoms. Additionally states he feels his blood sugar getting low took his usual dose of insulin tonight but did not eat as much as he normally would. - Related Data Home Medications Medication Instructions Recorded Confirmed Aspirin EC [Ecotrin Low Dose] 81 mg PO HS@222907/14/23 08/03/23 Ezetimibe/Simvastatin 1 tab PO HS@222907/14/23 08/03/23 [Ezetimibe/Simvastatin 10-40 mg] Ferrous Sulfate [Iron (65 MG 325 mg PO DAILY 07/14/23 08/03/23 Elemental)] Insulin Glargine,Hum.rec.anlog 30 units SQ HS 07/14/23 08/03/23 [Lantus Solostar Pen] Isosorbide Mononitrate ER [Imdur] 60 mg PO DAILY@1730 07/14/23 08/03/23 amLODIPine [Norvasc] 5 mg PO BID 07/14/23 08/03/23 carvediloL [Coreg] 25 mg PO BID 07/14/23 08/03/23 cloNIDine HCL 0.2 mg PO TID 07/14/23 08/03/23 hydrALAZINE HCL [Apresoline] 100 mg PO TID 07/14/23 08/03/23 Insulin Glargine,Hum.rec.anlog 35 units SQ 0800 07/27/23 08/03/23 [Lantus Solostar Pen] Previous Rx's Medication Instructions Recorded Famotidine [Pepcid] 20 mg PO DAILY #30 tab 07/18/23 HYDROcodone/APAP 7.5-325MG [[place] 1 tab PO Q8H #0 07/18/23 7.5-325] Insulin Aspart [NovoLOG Flexpen] 10 units SQ AC-TID #0 07/18/23 Lactulose [Cephulac] 10 gm PO BID #150 ml 07/18/23 Allergies Allergy/AdvReac Type Severity Reaction Status Date / Time Penicillins Allergy Unknown Verified 05/08/24 01:58 Childhood Sulfa (Sulfonamide Allergy Rash/Hives Verified 05/08/24 01:58 Antibiotics) iv contrast AdvReac Unknown Uncoded 05/08/24 01:58 Review of Systems ROS Statement: Those systems with pertinent positive or pertinent negative responses have been documented in the HPI. ROS Other: All systems not noted in ROS Statement are negative. 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 Date of last positivie culture/infection: 06/04/23 MDRO Source:: stool Additional Past Surgical History / Comment(s): parathyroid removal 2017, bloodclot filter in groin 2013 Additional Past Anesthesia/Blood Transfusion Reaction / Comment(s): claustraphobic has to be completely before placing mask on his face Past Psychological History: No Psychological Hx Reported Smoking Status: Never smoker Past Alcohol Use History: None Reported Past Drug Use History: None Reported - Past Family History Father Family Medical History: Cancer Additional Family Medical History / Comment(s): skin General Exam Limitations: no limitations Course Vital Signs 05/08/24 05/08/24 05/08/24 01:58 02:32 03:03 Temperature 98.1 F Pulse Rate 76 80 79 Respiratory 16 18 18 Rate Blood Pressure 146/85 128/68 134/80 O2 Sat by Pulse 97 97 97 Oximetry EKG Findings - EKG Comments: EKG Findings:: Sinus rhythm, rate 77 bpm, IA interval 207 ms, QRS duration 141 ms, QT/QTc 413/444 ms, left axis deviation, no significant ST elevations or depressions, compared to prior, no significant changes from prior Medical Decision Making - Medical Decision Making Was pt. sent in by a medical professional or institution (, PA, GROCERY CARRIER, urgent care, hospital, or [place] health care facility...) When possible be specific @ -[No] Did you speak to anyone other than the patient for history (EMS, parent, family, police, friend...)? What history was obtained from this source @ -[No] Did you review nursing and triage notes (agree or disagree)? Why? @ -[I reviewed and agree with nursing and triage notes] Were old charts reviewed (outside hosp., previous admission, EMS record, old EKG, old radiological studies, urgent care reports/EKG's, [place] health care facility records)? Report findings @ -[No old charts were reviewed] Differential Diagnosis (chest pain, altered mental status, abdominal pain women, abdominal pain men, vaginal bleeding, weakness, fever, dyspnea, syncope, headache, dizziness, GI bleed, back pain, seizure, CVA, palpatations, mental health, musculoskeletal)? @ -[not applicable] EKG interpreted by me (3pts min.). @ -[As above] X-rays interpreted by me (1pt min.). @ -[None done] CT interpreted by me (1pt min.). @ -[None done] U/S interpreted by me (1pt. min.). @ -[None done] What testing was considered but not performed or refused? (CT, X-rays, U/S, labs)? Why? @ -[None] What meds were considered but not given or refused? Why? @ -[None] Did you discuss the management of the patient with other professionals (professionals i.e. , PA, GROCERY CARRIER, lab, RT, psych nurse, high school social studies tutor, veterinary dentist, teacher, security officers and guards, clinical case manager)? Give summary @ -[No] Was smoking cessation discussed for >3mins.? @ -[No] Was critical care preformed (if so, how long)? @ -[No] Were there social determinants of health that impacted care today? How? (Homel essness, low income, unemployed, alcoholism, drug addiction, transportation, low edu. Level, literacy, decrease access to med. care, assisted, rehab)? @ -[No] Was there de-escalation of care discussed even if they declined (Discuss DNR or withdrawal of care, Hospice)? @ -[No] What co-morbidities impacted this encounter? (DM, HTN, Smoking, COPD, CAD, Cancer, CVA, ARF, Chemo, Hep., AIDS, mental health diagnosis, sleep apnea, morbid obesity)? @ -[None] Was patient admitted / discharged? Hospital course, mention meds given and route, prescriptions, significant lab abnormalities, going to OR and other pertinent info. @ -[hospital course] Undiagnosed new problem with uncertain prognosis? @ -[No] Drug Therapy requiring intensive monitoring for toxicity (Heparin, Nitro, Insulin, Cardizem)? @ -[No] Were any procedures done? @ -[No] Diagnosis/symptom? @ -[default] Acute, or Chronic, or Acute on Chronic? @ -[default] Uncomplicated (without systemic symptoms) or Complicated (systemic symptoms)? @ -[default] Side effects of treatment? @ -[No] Exacerbation, Progression, or Severe Exacerbation? @ -[No] Poses a threat to life or bodily function? How? (Chest pain, USA, SC, pneumonia, PE, COPD, DKA, ARF, appy, cholecystitis, CVA, Diverticulitis, Homicidal, Suicidal, threat to staff... and all critical care pts) @ -[No] - Lab Data Result diagrams: 05/08/24 02:12 05/08/24 02:12 Lab Results 05/08/24 05/08/24 05/08/24 Range/Units 02:12 02:12 02:23 WBC 11.5 H (3.8-10.6) k/uL RBC 4.22 L (4.30-5.90) m/uL Hgb 12.8 L (13.0-17.5) gm/dL Hct 38.6 L (39.0-53.0) % MCV 91.3 (80.0-100.0) fL MCH 30.4 (25.0-35.0) pg MCHC 33.3 (31.0-37.0) g/dL RDW 14.1 (11.5-15.5) % Plt Count 321 (150-450) k/uL MPV 7.4 Neutrophils % 65 % Lymphocytes % 22 % Monocytes % 8 % Eosinophils % 3 % Basophils % 1 % Neutrophils # 7.5 (1.3-7.7) k/uL Lymphocytes # 2.5 (1.0-4.8) k/uL Monocytes # 0.9 (0-1.0) k/uL Eosinophils # 0.3 (0-0.7) k/uL Basophils # 0.1 (0-0.2) k/uL Sodium 138 (137-145) mmol/L Potassium 4.0 (3.5-5.1) mmol/L Chloride 106 (98-107) mmol/L Carbon Dioxide 23 (22-30) mmol/L Anion Gap 9 mmol/L BUN 33 H (9-20) mg/dL Creatinine 3.49 H (0.66-1.25) mg/dL Est GFR (CKD-EPI)AfAm 20 (>60 ml/min/1.73 sqM) Est GFR (CKD-EPI)NonAf 17 (>60 ml/min/1.73 sqM) Glucose 64 L (74-99) mg/dL POC Glucose (mg/dL) 67 L (70-110) mg/dL POC Glu Wedding Consultant ID [place] Calcium 10.0 (8.4-10.2) mg/dL Magnesium 2.4 H (1.6-2.3) mg/dL Total Bilirubin 0.4 (0.2-1.3) mg/dL AST 28 (17-59) U/L ALT 17 (4-49) U/L Alkaline Phosphatase 77 (38-126) U/L Total Protein 7.2 (6.3-8.2) g/dL Albumin 4.3 (3.5-5.0) g/dL 05/08/24 Range/Units 03:01 WBC (3.8-10.6) k/uL RBC (4.30-5.90) m/uL Hgb (13.0-17.5) gm/dL Hct (39.0-53.0) % MCV (80.0-100.0) fL MCH (25.0-35.0) pg MCHC (31.0-37.0) g/dL RDW (11.5-15.5) % Plt Count (150-450) k/uL MPV Neutrophils % % Lymphocytes % % Monocytes % % Eosinophils % % Basophils % % Neutrophils # (1.3-7.7) k/uL Lymphocytes # (1.0-4.8) k/uL Monocytes # (0-1.0) k/uL Eosinophils # (0-0.7) k/uL Basophils # (0-0.2) k/uL Sodium (137-145) mmol/L Potassium (3.5-5.1) mmol/L Chloride (98-107) mmol/L Carbon Dioxide (22-30) mmol/L Anion Gap mmol/L BUN (9-20) mg/dL Creatinine (0.66-1.25) mg/dL Est GFR (CKD-EPI)AfAm (>60 ml/min/1.73 sqM) Est GFR (CKD-EPI)NonAf (>60 ml/min/1.73 sqM) Glucose (74-99) mg/dL POC Glucose (mg/dL) 187 H (70-110) mg/dL POC Glu Wedding Consultant ID Addi Ventura Calcium (8.4-10.2) mg/dL Magnesium (1.6-2.3) mg/dL Total Bilirubin (0.2-1.3) mg/dL AST (17-59) U/L ALT (4-49) U/L Alkaline Phosphatase (38-126) U/L Total Protein (6.3-8.2) g/dL Albumin (3.5-5.0) g/dL Disposition Clinical Impression: Patient on peritoneal dialysis Disposition: HOME SELF-CARE Condition: Good Instructions (If sedation given, give patient instructions): Hyperkalemia (ED) Additional Instructions: Every disease is a spectrum and a small chance still exists that a serious condition could develop, for this reason, please monitor yourself closely for new, changing or worsening symptoms, lightheadedness, dizziness, palpitations, chest pain, shortness of breath, abdominal pain, fever, inability to tolerate/keep down fluids or your medications, inability to follow up with outpatient providers as instructed and should you experience these symptoms or should you have any further concerns for your wellbeing please return to the ED or call 911 immediately. PLEASE call your primary care physician as soon as possible to arrange / discuss plan for followup appointment. Appointment in the next 1-3 days is strongly encouraged if possible. PLEASE let us know here before you leave if there is anything further we can do to be of any assistance. Take care and feel Better! Is patient prescribed a controlled substance at d/c from ED?: No Referrals: Stephanie Velazquez MD [Primary Care Provider] - 1-2 days
[2024-05-08 03:30] VITALS: BP 130/79; RESP 16; TEMP 98
== END 2024-05-08 03:30 | disposition home or self-care (01) ==
LOC: EC 01:43
DX: E87.5 Hyperkalemia (principal); Z99.2 Dependence on renal dialysis; Z88.0 Allergy status to penicillin; Z88.2 Allergy status to sulfonamides; Z88.8 Allergy status to other drugs, medicaments and biological substances
CPT/HCPCS: 36415; 80053; 83735; 85025; 93005; 96374; 99285

== ENCOUNTER 2024-12-22 15:32 | Inpatient (IN) | payer MEDICARE ==
--- NOTE | 2024-12-22 19:41 | ED ---
General Adult HPI - General Source: patient, family, RN notes reviewed, old records reviewed Mode of arrival: wheelchair Limitations: no limitations <Meng Camarena - Last Filed: 12/23/24 00:27> <Alistair Ventura - Last Filed: 12/29/24 03:31> - General Chief complaint: Abdominal Pain Stated complaint: urogenital, generalized pain Time Seen by Provider: 12/22/24 16:06 - History of Present Illness Initial comments: 69-year-old male with a past medical history of TBI, end-stage renal disease on peritoneal dialysis presents with complaints of abdominal pain and constipation. Reports his last bowel movement was December 08 approximately 2 weeks ago which she states was explosive in nature, but not bloody. States since then he has not had a bowel movement, has had increasing abdominal pain, and also has been getting his regular peritoneal dialysis treatments without issues. Reports his last dialysis was yesterday. States 4 days ago due to the amount of abdominal pain he decided to go to [facility] where he underwent lab work with that which was within normal limits, as well as CT abdomen pelvis which showed stool impaction but otherwise no other abnormalities and no sign of perforation. Patient was started at that time on vancomycin and ceftazidime for which he has been receiving through his peritoneal dialysis. reports during dialysis session on Sunday she started noticing a dark yellow color and the fluid being taking out during dialysis, and states after starting the antibiotics the fluid started to become slightly less yellow, but was still significantly yellow which is abnormal compared to the clear fluid that usually take off during dialysis. Reports they have tried Fleet enemas lactulose and other medications for the constipation. States the lactulose usually does the trick, but during these last 2 weeks amount of the medications they have tried if has enabled him to go to the bathroom and have bowel movement. (Meng Camarena) - Related Data Home Medications Medication Instructions Recorded Confirmed Aspirin EC [Ecotrin Low Dose] 81 mg PO DAILY 07/14/23 12/23/24 Ezetimibe/Simvastatin 1 tab PO DAILY 07/14/23 12/23/24 [Ezetimibe/Simvastatin 10-40 mg] Insulin Glargine,Hum.rec.anlog 40 units SQ BID 07/14/23 12/23/24 [Lantus Solostar Pen] Isosorbide Mononitrate ER [Imdur] 60 mg PO DAILY 07/14/23 12/23/24 carvediloL [Coreg] 25 mg PO BID 07/14/23 12/23/24 cloNIDine HCL 0.2 mg PO TID 07/14/23 12/23/24 hydrALAZINE HCL [Apresoline] 100 mg PO TID 07/14/23 12/23/24 Folic Acid/Vit B Complex and C 0.8 mg PO DAILY 12/23/24 12/23/24 [Purnima-Sb Tablet] Furosemide [Lasix] 40 mg PO DAILY 12/23/24 12/23/24 HYDROcodone/APAP 7.5-325MG [[place] 1 tab PO Q8H PRN 12/23/24 12/23/24 7.5-325] Insulin Aspart [NovoLOG Flexpen] 10 - 25 units SQ AC-TID MDD 60 12/23/24 12/23/24 units Lactulose [Cephulac] 20 gm PO TID PRN 12/23/24 12/23/24 Potassium Chloride ER [K-Dur 10] 10 meq PO DAILY 12/23/24 12/23/24 Semaglutide [Ozempic] 0.25 mg SQ FR 12/23/24 12/23/24 Sodium Bicarbonate Tab 650 mg PO DAILY 12/23/24 12/23/24 Spironolactone [Aldactone] 25 mg PO DAILY 12/23/24 12/23/24 diphenhydrAMINE [Benadryl] 25 mg PO HS 12/23/24 12/23/24 polyethylene glycoL 3350 [Miralax] 17 gm PO DAILY 12/23/24 12/23/24 Previous Rx's Medication Instructions Recorded Famotidine [Pepcid] 20 mg PO DAILY #30 tab 07/18/23 Allergies Allergy/AdvReac Type Severity Reaction Status Date / Time Penicillins Allergy Unknown Verified 12/23/24 10:39 Childhood Sulfa (Sulfonamide Allergy Rash/Hives Verified 12/23/24 10:39 Antibiotics) iv contrast AdvReac Unknown Uncoded 12/22/24 16:09 Review of Systems ROS Other: All systems not noted in ROS Statement are negative. <Meng Camarena - Last Filed: 12/23/24 00:27> ROS Other: All systems not noted in ROS Statement are negative. <Alistair Ventura - Last Filed: 12/29/24 03:31> ROS Statement: Those systems with pertinent positive or pertinent negative responses have been documented in the HPI. 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 Date of last positivie culture/infection: 06/04/23 MDRO Source:: stool Additional Past Surgical History / Comment(s): parathyroid removal 2018, bloodclot filter in groin 2013 Additional Past Anesthesia/Blood Transfusion Reaction / Comment(s): claustraphob ic has to be completely before placing mask on his face Past Psychological History: No Psychological Hx Reported Smoking Status: Never smoker Past Alcohol Use History: None Reported Past Drug Use History: None Reported - Past Family History Father Family Medical History: Cancer Additional Family Medical History / Comment(s): skin <Meng Camarena - Last Filed: 12/23/24 00:27> General Exam Limitations: no limitations <Meng Camarena - Last Filed: 12/23/24 00:27> - General Exam Comments Initial Comments: GENERAL: In no apparent distress at the time of examination. Pleasant and cooperative. HEENT: Head is atraumatic, normocephalic. Pupils are equal, round, and reactive to light. Sclerae anicteric. Conjunctivae are clear. Mucus membranes of the mouth are moist. Neck is supple. RESPIRATORY: Clear to auscultation. No wheezes, rales, or rhonchi. No use of accessory muscles. Patient maintaining oxygen saturation greater than 92%. No chest wall tenderness is noted on palpation or with deep breathing. CARDIOVASCULAR: Regular rate and rhythm. S1 and S2 noted. No systolic or diastolic murmur auscultated. No JVD noted. No S3 or S4 noted. GASTROINTESTINAL: Distention noted. Abdomen soft and round. Diminished bowel sounds auscultated x 4 quadrants. Significant tenderness to palpation diffusely, slightly worse in the periumbilical region. Clean peritoneal dialysis port appreciated without signs of erythema or discharge. INTEGUMENTARY: No cyanosis. No jaundice. No rashes noted. No cellulitis noted. EXTREMITIES: 2+ peripheral pulses. No evidence of peripheral edema. No calf tenderness noted. PSYCHIATRIC: Awake, alert, and oriented X 3. Appropriate affect. Intact judgement and insight. (Meng Camarena) Course Vital Signs 12/22/24 12/23/24 12/23/24 16:05 01:16 01:28 Temperature 99.1 F 98.7 F 98.7 F Pulse Rate 75 75 77 Respiratory 20 18 18 Rate Blood Pressure 117/72 112/81 105/73 O2 Sat by Pulse 95 94 L 94 L Oximetry Medical Decision Making - Lab Data Result diagrams: 12/22/24 20:29 12/22/24 20:29 <Meng Camarena - Last Filed: 12/23/24 00:27> - Lab Data Result diagrams: 12/28/24 05:58 12/28/24 05:58 <Alistair Ventura - Last Filed: 12/29/24 03:31> - Medical Decision Making Was pt. sent in by a medical professional or institution (Dr. PA, CLOTH EXAMINER MACHINE, urgent care, hospital, or retirement...) When possible be specific @ -Yes, sent from Dr. Lambert's office. Did you speak to anyone other than the patient for history (EMS, parent, family, police, friend...)? What history was obtained from this source @ -Yes, family. Did you review nursing and triage notes (agree or disagree)? Why? @ -I reviewed and agree with nursing and triage notes Were old charts reviewed (outside hosp., previous admission, EMS record, old EKG, old radiological studies, urgent care reports/EKG's, retirement records)? Report findings @ -Yes previous hospital records. Differential Diagnosis? @ -Differential Abdominal Pain Men: Appendicitis, cholecystitis, diverticulosis, ischemic bowel, pancreatitis, hepatitis, UTI, gastroenteritis, AAA, incarcerated hernia, bowel obstruction, constipation, inflammatory bowel, hepatitis, peptic ulcer disease, splenic infarction, perforated viscus, testicular torsion, this is not meant to be an all-inclusive list EKG interpreted by me (3pts min.). @ -As above X-rays interpreted by me (1pt min.). @ -None done CT interpreted by me (1pt min.). @ -CT abdomen shows no acute process, stool seen in the colon but not necessarily in the descending colon. U/S interpreted by me (1pt. min.). @ -None done What testing was considered but not performed or refused? (CT, X-rays, U/S, labs)? Why? @ -None What meds were considered but not given or refused? Why? @ -None Did you discuss the management of the patient with other professionals (professionals i.e. Dr., PA, CLOTH EXAMINER MACHINE, lab, RT, psych nurse, aids social worker, multi township assessor, teacher, administrative hearing officer, major case detective)? Give summary @ -No Was smoking cessation discussed for >3mins.? @ -No Was critical care preformed (if so, how long)? @ -No Were there social determinants of health that impacted care today? How? (Homelessness, low income, unemployed, alcoholism, drug addiction, transportation, low edu. Level, literacy, decrease access to med. care, retirement, rehab)? @ -No Was there de-escalation of care discussed even if they declined (Discuss DNR or withdrawal of care, Hospice)? DNR status @ -No What co-morbidities impacted this encounter? (DM, HTN, Smoking, COPD, CAD, Cancer, CVA, ARF, Chemo, Hep., AIDS, mental health diagnosis, sleep apnea, morbid obesity)? @ -None Was patient admitted / discharged? Hospital course, mention meds given and route, prescriptions, significant lab abnormalities, going to OR and other pertinent info. @ -Admitted, 69-year-old male presenting with complaints of abdominal pain. Reports his last bowel movement was December 08 approximately 2 weeks ago which she states was explosive in nature, but not bloody. States since then he has not had a bowel movement, has had increasing abdominal pain, and also has been getting his regular peritoneal dialysis treatments without issues. Reports his last dialysis was yesterday. States 4 days ago due to the amount of abdominal pain he decided to go to [facility] where he underwent lab work with that which was within normal limits, as well as CT abdomen pelvis which showed stool impaction but otherwise no other abnormalities and no sign of perforation. Patient was started at that time on vancomycin and ceftazidime for which he has been receiving through his peritoneal dialysis. reports during dialysis session on Sunday she started noticing a dark yellow color and the fluid being taking out during dialysis, and states after starting the antibiotics the fluid started to become slightly less yellow, but was still significantly yellow which is abnormal compared to the clear fluid that usually take off during dialysis. Reports they have tried Fleet enemas lactulose and other medications for the constipation. Patient received CT abdomen here which showed no acute process, significant stool in the bowel but not in the descending colon. Digital rectal exam reciprocated these results with no stool palpated and no blood on SHEREEN. CBC and CMP were relatively within normal limits, creatinine was around patient's baseline (ESRD patient). Patient also received pain medication which reduce his pain close to what his baseline was. Since patient was sent from operations and maintenance specialist's office it was decided the patient would be admitted for [facility] ation and receive dialysis here. Recommend potential bowel regiment such as GoLytely under the supervision of the operations and maintenance specialist to potentially help with the patient's constipation. Discussed admission with on-call [facility] who accepted. Undiagnosed new problem with uncertain prognosis? @ -No Drug Therapy requiring intensive monitoring for toxicity (Heparin, Nitro, Insulin, Cardizem)? @ -No Were any procedures done? @ -No Diagnosis/symptom? @ -Constipation Acute, or Chronic, or Acute on Chronic? @ -Chronic Uncomplicated (without systemic symptoms) or Complicated (systemic symptoms)? @ -Default Side effects of treatment? @ -No Exacerbation, Progression, or Severe Exacerbation? @ -No Poses a threat to life or bodily function? How? (Chest pain, USA, NC, pneumonia, PE, COPD, DKA, ARF, appy, cholecystitis, CVA, Diverticulitis, Homicidal, Suicidal, threat to staff... and all critical care pts) @ -Yes, chronic constipation can lead to bowel obstruction or bowel perforation which could lead to sepsis which could lead to endorgan damage and ultimately . (Meng Camarena) I personally saw the patient and performed the critical portion of the service. I discussed the patient care with the resident. I directed management, care planning and final disposition of the patient. This includes, but not limited to, review of all lab work, radiological studies, EKG's, consultations, vital signs, and nursing notes. EKG interpreted by me (3pts min.) @ [as above] X-Rays interpreted by me (1 pt min.) @ [none] CT interpreted by me ( 1pt min.) @ [I interpreted the patient's CT scan of the abdomen and pelvis as negative for free air, obstruction, acute surgical condition. U/S interpreted by me (1 pt min.) @ [none] Critical care time of [0] minutes excluding separately billable procedures was spent in conjunction with critical care activities provided by the Resident and Attending simultaneously. I was present during [no procedures] for all critical portions of the procedure and as immediately available to furnish service during the entire procedure. (Alistair Ventura) - Lab Data Lab Results 12/22/24 12/22/24 12/22/24 Range/Units 19:59 19:59 20:29 WBC 8.37 (4.50-10.00) 10*3/uL RBC 3.58 L (4.40-5.60) 10*6/uL Hgb 11.2 L (13.0-17.0) g/dL Hct 32.5 L (39.6-50.0) % MCV 90.8 (80.0-97.0) fL MCH 31.3 (27.0-32.0) pg MCHC 34.5 (32.0-37.0) g/dL Plt Count 220 (140-440) 10*3/uL MPV 9.6 (9.5-12.2) fL Immature Gran % (Auto) 0.6 % Neutrophils % 77.2 % Lymphocytes % 12.1 % Monocytes % 8.8 % Eosinophils % 0.8 % Basophils % 0.5 % Immature Gran # 0.05 H (0.00-0.04) 10*3/uL Neutrophils # 6.46 (1.80-7.70) 10*3/uL Lymphocytes # 1.01 (0.90-5.00) 10*3/uL Monocytes # 0.74 (0.20-1.00) 10*3/uL Eosinophils # 0.07 (0.04-0.35) 10*3/uL Basophils # 0.04 (0.00-0.10) 10*3/uL Sodium (137-145) mmol/L Potassium (3.5-5.1) mmol/L Chloride (98-107) mmol/L Carbon Dioxide (22-30) mmol/L Anion Gap mmol/L BUN (9-20) mg/dL Creatinine (0.66-1.25) mg/dL Est GFR (CKD-EPI)AfAm (>60 ml/min/1.73 sqM) Est GFR (CKD-EPI)NonAf (>60 ml/min/1.73 sqM) Glucose (74-99) mg/dL Plasma Lactic Acid Jose Alejandro (0.7-2.0) mmol/L Calcium (8.4-10.2) mg/dL Total Bilirubin (0.2-1.3) mg/dL AST (17-59) U/L ALT (4-49) U/L Alkaline Phosphatase (38-126) U/L Total Protein (6.3-8.2) g/dL Albumin (3.5-5.0) g/dL Urine Color Urine Appearance (Clear) Urine pH (5.0-8.0) Ur Specific [place] (1.001-1.035) Urine Protein (Negative) Urine Glucose (UA) (Negative) Urine Ketones (Negative) Urine Blood (Negative) Urine Nitrite (Negative) Urine Bilirubin (Negative) Urine Urobilinogen (<2.0) mg/dL Ur Leukocyte Esterase (Negative) Urine RBC (0-5) /hpf Urine WBC (0-5) /hpf Ur Squamous Epith Cells (0-4) /hpf Urine Mucus (None) /hpf Fluid Source Peritoneal Flui Fluid Volume Not Measured mL Fluid Appearance Hazy A (Clear) Fluid WBC 1102 /UL Fluid RBC (Auto) <2000 /UL Fld Polynuclear WBCs % 49 % Fluid Lymphocytes % 36 % Fluid Monocytes % 15 % Body Fluid Glucose Source Peritoneal Fluid Fluid Glucose 240 mg/dL 12/22/24 12/22/24 12/22/24 Range/Units 20:29 20:29 22:04 WBC (4.50-10.00) 10*3/uL RBC (4.40-5.60) 10*6/uL Hgb (13.0-17.0) g/dL Hct (39.6-50.0) % MCV (80.0-97.0) fL MCH (27.0-32.0) pg MCHC (32.0-37.0) g/dL Plt Count (140-440) 10*3/uL MPV (9.5-12.2) fL Immature Gran % (Auto) % Neutrophils % % Lymphocytes % % Monocytes % % Eosinophils % % Basophils % % Immature Gran # (0.00-0.04) 10*3/uL Neutrophils # (1.80-7.70) 10*3/uL Lymphocytes # (0.90-5.00) 10*3/uL Monocytes # (0.20-1.00) 10*3/uL Eosinophils # (0.04-0.35) 10*3/uL Basophils # (0.00-0.10) 10*3/uL Sodium 132 L (137-145) mmol/L Potassium 4.7 (3.5-5.1) mmol/L Chloride 96 L (98-107) mmol/L Carbon Dioxide 25 (22-30) mmol/L Anion Gap 11 mmol/L BUN 38 H (9-20) mg/dL Creatinine 3.56 H (0.66-1.25) mg/dL Est GFR (CKD-EPI)AfAm 19 (>60 ml/min/1.73 sqM) Est GFR (CKD-EPI)NonAf 16 (>60 ml/min/1.73 sqM) Glucose 112 H (74-99) mg/dL Plasma Lactic Acid Jose Alejandro 1.7 (0.7-2.0) mmol/L Calcium 8.7 (8.4-10.2) mg/dL Total Bilirubin 0.8 (0.2-1.3) mg/dL AST 49 (17-59) U/L ALT 45 (4-49) U/L Alkaline Phosphatase 58 (38-126) U/L Total Protein 6.1 L (6.3-8.2) g/dL Albumin 3.3 L (3.5-5.0) g/dL Urine Color Yellow Urine Appearance Clear (Clear) Urine pH 7.5 (5.0-8.0) Ur Specific [place] 1.014 (1.001-1.035) Urine Protein 1+ H (Negative) Urine Glucose (UA) Negative (Negative) Urine Ketones Negative (Negative) Urine Blood Negative (Negative) Urine Nitrite Negative (Negative) Urine Bilirubin Negative (Negative) Urine Urobilinogen <2.0 (<2.0) mg/dL Ur Leukocyte Esterase Negative (Negative) Urine RBC <1 (0-5) /hpf Urine WBC 1 (0-5) /hpf Ur Squamous Epith Cells <1 (0-4) /hpf Urine Mucus Rare H (None) /hpf Fluid Source Fluid Volume mL Fluid Appearance (Clear) Fluid WBC /UL Fluid RBC (Auto) /UL Fld Polynuclear WBCs % % Fluid Lymphocytes % % Fluid Monocytes % % Body Fluid Glucose Source Fluid Glucose mg/dL Disposition <Meng Camarena - Last Filed: 12/23/24 00:27> <Alistair Ventura - Last Filed: 12/29/24 03:31> Clinical Impression: Constipation Disposition: ADMITTED IP TO THIS HOSP Condition: Fair
[2024-12-22] MEDS: MORPHINE SULFATE 2 MG/ML SYRINGE IVP PRN (20:28)
[2024-12-22 20:36] LABS: Basophils # (A) 0.04 10*3/uL (0.00-0.10); Basophils % (A) 0.5 %; Eosinophils # (A) 0.07 10*3/uL (0.04-0.35); Eosinophils % (A) 0.8 %; HCT 32.5 % (39.6-50.0); HGB 11.2 g/dL (13.0-17.0); Lymphocytes # (A) 1.01 10*3/uL (0.90-5.00); Lymphocytes % (A) 12.1 %; MCH 31.3 pg (27.0-32.0); MCHC 34.5 g/dL (32.0-37.0); MCV 90.8 fL (80.0-97.0); Monocytes # (A) 0.74 10*3/uL (0.20-1.00); Monocytes % (A) 8.8 %; Neutrophils # (A) 6.46 10*3/uL (1.80-7.70); Neutrophils % (A) 77.2 %; Platelet Count 220 10*3/uL (140-440); RBC 3.58 10*6/uL (4.40-5.60); RDW 13.3 % (11.5-14.5); WBC 8.37 10*3/uL (4.50-10.00)
[2024-12-22 20:49] LABS: ALT 45 U/L (4-49); African American GFR (CKD) 19 (>60 ml/min/1.73 sqM); Anion Gap 11 mmol/L; Blood Urea Nitrogen 38 mg/dL (9-20); Calcium 8.7 mg/dL (8.4-10.2); Carbon Dioxide 25 mmol/L (22-30); Chloride 96 mmol/L (98-107); Glucose 112 mg/dL (74-99); Non-African American GFR(CKD) 16 (>60 ml/min/1.73 sqM); Sodium 132 mmol/L (137-145)
[2024-12-22 20:52] LABS: AST 49 U/L (17-59); Albumin 3.3 g/dL (3.5-5.0); Potassium 4.7 mmol/L (3.5-5.1); Total Protein 6.1 g/dL (6.3-8.2)
[2024-12-22 20:53] LABS: Alkaline Phosphatase 58 U/L (38-126)
--- NOTE | 2024-12-22 20:58 | CT ---
EXAMINATION TYPE: CT abdomen pelvis wo con DATE OF EXAM: 12/22/2024 8:21 PM COMPARISON: None. CLINICAL INDICATION: Male, 69 years old with history of abd pain, constipation, generalized pain TECHNIQUE: Axial images were obtained from above the diaphragm to the pubic rami in the axial plane a t 5 mm thick sections. Reconstructed images are reviewed on the computer in the coronal plane. CONTRAST: mL of . Study performed without Oral Contrast DLP: 1408 mGycm, Automated exposure control for dose reduction was used. FINDINGS: Limited CT sections are obtained the lung bases. The lung bases are clear. Moderate coronary artery calcification is present. CT ABDOMEN: Liver: Normal Spleen: Normal Pancreas: Normal Adrenal glands: The adrenal glands are normal. Gallbladder: Normal Kidneys: No masses are evident. No hydronephrosis is present. No cysts are present. Delayed images were obtained through the kidneys, which remain unremarkable. Aorta: Vascular calcification is within the aorta. Inferior vena cava: Inferior vena cava filter is present CT PELVIS: Peritoneal dialysis catheter is in the right hemipelvis Loops of bowel within the abdomen and pelvis are normal. This study is without oral contrast limi ting bowel evaluation Appendix: Not identified. No dilated tubular structure or inflammatory change is evident. Urinary bladder: Normal. Genitourinary structures: Prostate appears normal Osseous structures: No suspicious lytic or sclerotic lesions. IMPRESSION: 1. No suspicious abnormality account for abdominal pain. 2. Peritoneal dialysis catheter right hemipelvis. [facility], , 12/22/2024 8:56 PM
[2024-12-22 22:24] LABS: Bilirubin,Urine Negative (Negative); Blood,Urine Negative (Negative); Color,Urine Yellow; Glucose,Urine (UA) Negative (Negative); Ketones,Urine Negative (Negative); Leukocyte Esterase,Urine Negative (Negative); Mucus,Urine Rare /hpf; Nitrite,Urine Negative (Negative); PH, Urine 7.5 (5.0-8.0); Protein,Urine 1+ (Negative); RBC,Urine <1 /hpf (0-5); Specific Gravity,Urine 1.014 (1.001-1.035); Squamous Epithelial Cell,Urine <1 /hpf (0-4); Urobilinogen,Urine <2.0 mg/dL (<2.0); WBC,Urine 1 /hpf (0-5)
[2024-12-22] MEDS: MORPHINE SULFATE 2 MG/ML SYRINGE IVP STA (22:52)
[2024-12-22] MEDS ORDERED: NALOXONE 0.4 MG/ML 1 ML VIAL IV PRN (23:39)
[2024-12-23] MEDS: DIALYSIS (PERIT 1.5%) 2,000 ML 30 G/2,000 ML BAG INTRAPERIT SCH (01:10)
[2024-12-23 07:52] LABS: Glucose,Whole Blood 83 mg/dL (70-110)
[2024-12-23] MEDS: ONDANSETRON 4 MG/2 ML VIAL IVP PRN (09:53)
[2024-12-23 10:48] LABS: Basophils # (A) 0.02 10*3/uL (0.00-0.10); Basophils % (A) 0.2 %; Eosinophils # (A) 0.06 10*3/uL (0.04-0.35); Eosinophils % (A) 0.7 %; HCT 33.5 % (39.6-50.0); HGB 11.2 g/dL (13.0-17.0); Lymphocytes # (A) 0.54 10*3/uL (0.90-5.00); Lymphocytes % (A) 6.1 %; MCH 30.7 pg (27.0-32.0); MCHC 33.4 g/dL (32.0-37.0); MCV 91.8 fL (80.0-97.0); Monocytes # (A) 0.53 10*3/uL (0.20-1.00); Monocytes % (A) 5.9 %; Neutrophils # (A) 7.71 10*3/uL (1.80-7.70); Neutrophils % (A) 86.5 %; Platelet Count 236 10*3/uL (140-440); RBC 3.65 10*6/uL (4.40-5.60); RDW 13.3 % (11.5-14.5); WBC 8.91 10*3/uL (4.50-10.00)
[2024-12-23 11:01] LABS: African American GFR (CKD) 17 (>60 ml/min/1.73 sqM); Anion Gap 6 mmol/L; Blood Urea Nitrogen 39 mg/dL (9-20); Calcium 8.7 mg/dL (8.4-10.2); Carbon Dioxide 31 mmol/L (22-30); Chloride 95 mmol/L (98-107); Glucose 137 mg/dL (74-99); Magnesium 1.9 mg/dL (1.6-2.3); Non-African American GFR(CKD) 15 (>60 ml/min/1.73 sqM); Potassium 4.1 mmol/L (3.5-5.1); Sodium 132 mmol/L (137-145)
[2024-12-23 12:06] LABS: Glucose,Whole Blood 219 mg/dL (70-110)
--- NOTE | 2024-12-23 12:06 | P.NPCON ---
History of Present Illness - Reason for Consult Consult date: 12/23/24 end stage renal disease - History of Present Illness Patient is a 69-year-old male that was consulted for ESRD currently on daily peritoneal dialysis. Patient has medical history significant for hypertension, insulin depedent diabetes mellitus. Patient had complaint of abdominal pain and constipation. States abdominal pain started on Sunday. He went to [facility] for further workup. Labs and CT abdomen/pelvis were unremarkable. Abdominal pain did not improve after hospital visit and called outpatient nephrology. He was given vancomycin and ceftazidime through his PD. Patient states his last bowel movement was on December 08. Has been keeping up with his daily peritoneal dialysis treatments but did notice his PD fluid to be cloudy on Sunday. Reports his last dialysis was yesterday. Patient has additional complaint of difficulty urinating. Patient states voids have been infrequent since 3 days ago. Last void was 2 AM last night. Creatinine on admission was 6.0. Creatinine today 4.20. Medications reviewed with patient. Denies NSAID use or LINDSEY or ARB for her hypertension. Denies recent contrast. Denies any fevers or chills. Exam: Vital signs reviewed. GENERAL: Patient is awake oriented, comfortable in bed CARDIO: Regular rate rhythm. PULM: No audible rhonchi or wheezes. 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 History of Any Multi-Drug Resistant Organisms: None Reported, C-DIFF Date of last positivie culture/infection: 06/04/23 MDRO Source:: stool Past Surgical History: Tonsillectomy Additional Past Surgical History / Comment(s): parathyroid removal 2017, bloodclot filter in groin 2013, bilateral catract surgery 04/2024 Past Anesthesia/Blood Transfusion Reactions: No Reported Reaction Additional Past Anesthesia/Blood Transfusion Reaction / Comment(s): claustraphobic has to be completely before placing mask on his face Smoking Status: Never smoker - Past Family History Father Family Medical History: Cancer Additional Family Medical History / Comment(s): skin Medications and Allergies Home Medications Medication Instructions Recorded Confirmed Type Aspirin EC [Ecotrin Low Dose] 81 mg PO DAILY 07/14/23 12/23/24 History Ezetimibe/Simvastatin 1 tab PO DAILY 07/14/23 12/23/24 History [Ezetimibe/Simvastatin 10-40 mg] Insulin Glargine,Hum.rec.anlog 40 units SQ BID 07/14/23 12/23/24 History [Lantus Solostar Pen] Isosorbide Mononitrate ER [Imdur] 60 mg PO DAILY 07/14/23 12/23/24 History carvediloL [Coreg] 25 mg PO BID 07/14/23 12/23/24 History cloNIDine HCL 0.2 mg PO TID 07/14/23 12/23/24 History hydrALAZINE HCL [Apresoline] 100 mg PO TID 07/14/23 12/23/24 History Famotidine [Pepcid] 20 mg PO DAILY #30 tab 07/18/23 12/23/24 Rx Folic Acid/Vit B Complex and C 0.8 mg PO DAILY 12/23/24 12/23/24 History [Purnima-Sb Tablet] Furosemide [Lasix] 40 mg PO DAILY 12/23/24 12/23/24 History HYDROcodone/APAP 7.5-325MG [[place] 1 tab PO Q8H PRN 12/23/24 12/23/24 History 7.5-325] Insulin Aspart [NovoLOG Flexpen] 10 - 25 units SQ AC-TID MDD 60 12/23/2412/23 History units Lactulose [Cephulac] 20 gm PO TID PRN 12/23/24 12/23/24 History Potassium Chloride ER [K-Dur 10] 10 meq PO DAILY 12/23/24 12/23/24 History Semaglutide [Ozempic] 0.25 mg SQ FR 12/23/24 12/23/24 History Sodium Bicarbonate Tab 650 mg PO DAILY 12/23/24 12/23/24 History Spironolactone [Aldactone] 25 mg PO DAILY 12/23/24 12/23/24 History diphenhydrAMINE [Benadryl] 25 mg PO HS 12/23/24 12/23/24 History polyethylene glycoL 3350 [Miralax] 17 gm PO DAILY 12/23/24 12/23/24 History Allergies Allergy/AdvReac Type Severity Reaction Status Date / Time Penicillins Allergy Unknown Verified 12/23/24 10:39 Childhood Sulfa (Sulfonamide Allergy Rash/Hives Verified 12/23/24 10:39 Antibiotics) iv contrast AdvReac Unknown Uncoded 12/22/24 16:09 Physical Exam Vitals: Vital Signs Temp Pulse Pulse Resp BP BP Pulse Ox 12/23/24 07:47 98.9 F 73 17 146/75 97 12/23/24 02:31 98.4 F 84 16 120/64 94 L 12/23/24 01:28 98.7 F 77 18 105/73 94 L 12/23/24 01:16 98.7 F 75 18 112/81 94 L 12/22/24 16:05 99.1 F 75 20 117/72 95 Intake and Output 12/22/24 12/23/24 12/23/24 22:59 06:59 14:59 Other: Voiding Method Urinal # Voids 1 Weight 112.491 kg 112.491 kg Results - Lab Results Most recent lab results Calcium 8.7 mg/dL (8.4-10.2) 12/22/24 20:29 12/23/24 10:30 12/23/24 10:30 Assessment and Plan Assessment: ESRD receiving daily peritoneal dialysis, CT/abd pelvis showing no hydronephrosis Peritoneal dialysis peritonitis s/p vancomycin intraperitoneal on 12/20/2024 and maintained on daily ceftazidime. Constipation, CT abd/pelvis showing stool impaction, no signs of perforation Chronic normocytic anemia Insulin dependent Diabetes Mellitus Volume overloaded Hypertension, stable Plan: C/w daily peritoneal dialysis One time dose of IV ceftazidime ordered general surgery consulted monitor fever and signs of infection resume home meds once reconciled avoid nephrotoxic medications follow up BMP ordered CT abdomen/pelvis reviewed Order vancomycin level Cell count daily Patient is seen and examined. Agree with resident's findings, assessment and plan.
--- NOTE | 2024-12-23 12:32 | P.GSCN ---
History of Present Illness Consult date: 12/23/24 History of present illness: CHIEF COMPLAINT: Abdominal pain HISTORY OF PRESENT ILLNESS: This is a 69-year-old male who presented to the hospital with complaints of abdominal pain. He had been having issues with constipation. His last bowel movement was December 08. Patient has had no results with suppositories or laxatives. He denies any flatus. He does report being nauseous. Denies any vomiting CT scan of the abdomen reported no acute findings. Patient is tender right upper quadrant and right mid abdomen. Patient with history of end-stage renal disease on peritoneal dialysis. at bedside reports that the fluid had been a darker yellow. Patient is currently on antibiotics. Surgical service has been consulted for constipation. Patient does report that he takes pain medications regularly at home. PAST MEDICAL HISTORY: See below PAST SURGICAL HISTORY: See below MEDICATIONS: See below ALLERGIES: See below SOCIAL HISTORY: No illicit drug use. REVIEW OF SYSTEMS: CONSTITUTIONAL: Denies fever or chills. HEENT: Denies blurred vision, vision changes, or eye pain. Denies hemoptysis CARDIOVASCULAR: Denies chest pain or pressure. RESPIRATORY: No shortness of breath. GASTROINTESTINAL: See HPI for pertinent findings HEMATOLOGIC: Denies bleeding disorders. GENITOURINARY: Denies any blood in urine or increased urinary frequency. SKIN: Denies pruitis. Denies rash. PHYSICAL EXAM: VITAL SIGNS: Reviewed GENERAL: Well-developed in no acute distress. HEENT: No sclera icterus. Extraocular movements grossly intact. Moist buccal mucosa. Head is atraumatic, normocephalic. No nasal drainage. ABDOMEN: Soft. Mildly distended. Tenderness palpation right upper quadrant and right mid abdomen. Peritoneal dialysis catheter site clean dry and intact. NEUROLOGIC: Awake and alert LABORATORY DATA: WBC 8.91 Hgb 11.2 platelets 236 Sodium 132 potassium 4.1 creatinine 3.86 Lactic acid 1.7 LFTs normal IMAGING: CT scan of pelvis reports no suspicious abnormality account for abdominal pain. Peritoneal dialysis catheter right hemipelvis. gallbladder normal ASSESSMENT: 1. Abdominal pain 2. Constipation 3. Opioid use 4. End-stage renal disease on peritoneal dialysis PLAN: -Discussed case with Dr. Valentine and reviewed CT scan findings. Barium enema with Gastrografin ordered to evaluate for sigmoid obstruction. -Keep patient n.p.o. Physician Brim Shaper note has been reviewed by physician. Signing provider agrees with the documented findings, assessment, and plan of care. I have personally seen and examined the patient, reviewed the HORTICULTURE SUPERINTENDENT /PAs history, exam and MDM and agree with the assessment and plan as written. Based on total visit time, I have performed more than 50% of the visit. As above: Family at bedside. They are able to provide most of the history. Patient somewhat confused. Patient with decreased bowel function over the last several weeks. Diffuse abdominal pain. Some bloating. Abdominal CAT scan shows dialysis catheter in place. Small amount of pneumoperitoneum which is not unexpected given the patient's form of dialysis. Stool throughout colon although some narrowing possibly through sigmoid. Gastrografin enema ordered to evaluate for sigmoid colonic obstruction. That study shows no definite obstruction there. Resume liquid diet. Await repeat cultures from peritoneal fluid. Possible yeast on outpatient studies. May require peritoneal dialysis catheter removal. Will tentatively schedule for in case this is needed. 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 History of Any Multi-Drug Resistant Organisms: None Reported, C-DIFF Year Discovered:: 06/04/23 MDRO Source:: stool Past Surgical History: Tonsillectomy Additional Past Surgical History / Comment(s): parathyroid removal 2017, bloodclot filter in groin 2013, bilateral catract surgery 04/2024 Past Anesthesia/Blood Transfusion Reactions: No Reported Reaction Additional Past Anesthesia/Blood Transfusion Reaction / Comm: claustraphobic has to be completely before placing mask on his face Smoking Status: Never smoker - Past Family History Father Family Medical History: Cancer Additional Family Medical History / Comment(s): skin Medications and Allergies Home Medications Medication Instructions Recorded Confirmed Type Aspirin EC [Ecotrin Low Dose] 81 mg PO DAILY 07/14/23 12/23/24 History Ezetimibe/Simvastatin 1 tab PO DAILY 07/14/23 12/23/24 History [Ezetimibe/Simvastatin 10-40 mg] Insulin Glargine,Hum.rec.anlog 40 units SQ BID 07/14/23 12/23/24 History [Lantus Solostar Pen] Isosorbide Mononitrate ER [Imdur] 60 mg PO DAILY 07/14/23 12/23/24 History carvediloL [Coreg] 25 mg PO BID 07/14/23 12/23/24 History cloNIDine HCL 0.2 mg PO TID 07/14/23 12/23/24 History hydrALAZINE HCL [Apresoline] 100 mg PO TID 07/14/23 12/23/24 History Famotidine [Pepcid] 20 mg PO DAILY #30 tab 07/18/23 12/23/24 Rx Folic Acid/Vit B Complex and C 0.8 mg PO DAILY 12/23/24 12/23/24 History [Purnima-Sb Tablet] Furosemide [Lasix] 40 mg PO DAILY 12/23/24 12/23/24 History HYDROcodone/APAP 7.5-325MG [[place] 1 tab PO Q8H PRN 12/23/24 12/23/24 History 7.5-325] Insulin Aspart [NovoLOG Flexpen] 10 - 25 units SQ AC-TID MDD 60 12/23/24 12/23/24 History units Lactulose [Cephulac] 20 gm PO TID PRN 12/23/24 12/23/24 History Potassium Chloride ER [K-Dur 10] 10 meq PO DAILY 12/23/24 12/23/24 History Semaglutide [Ozempic] 0.25 mg SQ FR 12/23/24 12/23/24 History Sodium Bicarbonate Tab 650 mg PO DAILY 12/23/24 12/23/24 History Spironolactone [Aldactone] 25 mg PO DAILY 12/23/24 12/23/24 History diphenhydrAMINE [Benadryl] 25 mg PO HS 12/23/24 12/23/24 History polyethylene glycoL 3350 [Miralax] 17 gm PO DAILY 12/23/24 12/23/24 History Allergies Allergy/AdvReac Type Severity Reaction Status Date / Time Penicillins Allergy Unknown Verified 12/23/24 10:39 Childhood Sulfa (Sulfonamide Allergy Rash/Hives Verified 12/23/24 10:39 Antibiotics) iv contrast AdvReac Unknown Uncoded 12/22/24 16:09 Surgical - Exam Vital Signs Temp Pulse Resp BP Pulse Ox 99.1 F 75 20 117/72 95 12/22/24 16:05 12/22/24 16:05 12/22/24 16:05 12/22/24 16:05 12/22/24 16:05 Results - Labs 12/23/24 10:30 12/23/24 10:30 Abnormal Lab Results - Last 24 Hours (Table) 12/22/24 12/22/24 12/22/24 Range/Units 20:29 20:29 22:04 RBC 3.58 L (4.40-5.60) 10*6/uL Hgb 11.2 L (13.0-17.0) g/dL Hct 32.5 L (39.6-50.0) % MPV (9.5-12.2) fL Immature Gran # 0.05 H (0.00-0.04) 10*3/uL Neutrophils # (1.80-7.70) 10*3/uL Lymphocytes # (0.90-5.00) 10*3/uL Sodium 132 L (137-145) mmol/L Chloride 96 L (98-107) mmol/L Carbon Dioxide (22-30) mmol/L BUN 38 H (9-20) mg/dL Creatinine 3.56 H (0.66-1.25) mg/dL Glucose 112 H (74-99) mg/dL Total Protein 6.1 L (6.3-8.2) g/dL Albumin 3.3 L (3.5-5.0) g/dL Urine Protein 1+ H (Negative) Urine Mucus Rare H (None) /hpf 12/23/24 12/23/24 Range/Units 10:30 10:30 RBC 3.65 L (4.40-5.60) 10*6/uL Hgb 11.2 L (13.0-17.0) g/dL Hct 33.5 L (39.6-50.0) % MPV 9.1 L (9.5-12.2) fL Immature Gran # 0.05 H (0.00-0.04) 10*3/uL Neutrophils # 7.71 H (1.80-7.70) 10*3/uL Lymphocytes # 0.54 L (0.90-5.00) 10*3/uL Sodium 132 L (137-145) mmol/L Chloride 95 L (98-107) mmol/L Carbon Dioxide 31 H (22-30) mmol/L BUN 39 H (9-20) mg/dL Creatinine 3.86 H (0.66-1.25) mg/dL Glucose 137 H (74-99) mg/dL Total Protein (6.3-8.2) g/dL Albumin (3.5-5.0) g/dL Urine Protein (Negative) Urine Mucus (None) /hpf Diabetes panel 12/22/24 12/23/24 Range/Units 20:29 10:30 Sodium 132 L 132 L (137-145) mmol/L Potassium 4.7 4.1 (3.5-5.1) mmol/L Chloride 96 L 95 L (98-107) mmol/L Carbon Dioxide 25 31 H (22-30) mmol/L BUN 38 H 39 H (9-20) mg/dL Creatinine 3.56 H 3.86 H (0.66-1.25) mg/dL Glucose 112 H 137 H (74-99) mg/dL Calcium 8.7 8.7 (8.4-10.2) mg/dL AST 49 (17-59) U/L ALT 45 (4-49) U/L Alkaline Phosphatase 58 (38-126) U/L Total Protein 6.1 L (6.3-8.2) g/dL Albumin 3.3 L (3.5-5.0) g/dL Calcium panel 12/22/24 12/23/24 Range/Units 20:29 10:30 Calcium 8.7 8.7 (8.4-10.2) mg/dL Albumin 3.3 L (3.5-5.0) g/dL Pituitary panel 12/22/24 12/23/24 Range/Units 20:29 10:30 Sodium 132 L 132 L (137-145) mmol/L Potassium 4.7 4.1 (3.5-5.1) mmol/L Chloride 96 L 95 L (98-107) mmol/L Carbon Dioxide 25 31 H (22-30) mmol/L BUN 38 H 39 H (9-20) mg/dL Creatinine 3.56 H 3.86 H (0.66-1.25) mg/dL Glucose 112 H 137 H (74-99) mg/dL Calcium 8.7 8.7 (8.4-10.2) mg/dL Adrenal panel 12/22/24 12/23/24 Range/Units 20:29 10:30 Sodium 132 L 132 L (137-145) mmol/L Potassium 4.7 4.1 (3.5-5.1) mmol/L Chloride 96 L 95 L (98-107) mmol/L Carbon Dioxide 25 31 H (22-30) mmol/L BUN 38 H 39 H (9-20) mg/dL Creatinine 3.56 H 3.86 H (0.66-1.25) mg/dL Glucose 112 H 137 H (74-99) mg/dL Calcium 8.7 8.7 (8.4-10.2) mg/dL Total Bilirubin 0.8 (0.2-1.3) mg/dL AST 49 (17-59) U/L ALT 45 (4-49) U/L Alkaline Phosphatase 58 (38-126) U/L Total Protein 6.1 L (6.3-8.2) g/dL Albumin 3.3 L (3.5-5.0) g/dL
[2024-12-23] MEDS ORDERED: LACTULOSE 20 GM/30 ML CUP PO PRN (13:04)
[2024-12-23] MEDS ORDERED: HYDROcodone/APAP 7.5-325MG 1 EACH TAB PO PRN (13:04)
[2024-12-23] MEDS ORDERED: DEXTROSE 50% SYRINGE 50 ML IVP PRN ×2 (13:06)
[2024-12-23] MEDS ORDERED: ACETAMINOPHEN TAB 325 MG TAB PO PRN (13:08)
--- NOTE | 2024-12-23 13:15 | P.HPIM ---
History of Present Illness H&P Date: 12/23/24 This is a pleasant 69-year-old male with medical history significant for end- stage renal disease maintained on peritoneal hemodialysis for the last year and a half, DVT, hypertension, hyperlipidemia, TBI, transverse myelitis, Factor V, diabetes mellitus. Patient comes into the hospital with come of complaints of abdominal pain and constipation. Last bowel movement was reportedly December 08 and has not been passing much gas. Denies any nausea, vomiting or diarrhea. Patient states he has had increasing abdominal pain. They have tried multiple laxatives and stool softeners without success. [facility] pelvis that showed stool impaction although otherwise no abnormality. He has been getting his regular peritoneal dialysis treatment without issues. On Sunday she noticed a dark yellow color with the fluid being taken off during dialysis had improved some with antibiotics but is not clear as it usually is. He was given vancomycin and ceftazidime through the peritoneal dialysis at the nephrology office and his did it once at home. Because of the continued discoloration of the peritoneal fluid which was yellow in color with mucus per the , they were instructed to come to the ER. CT abdomen pelvis reveals no suspicious abnormality to account for the abdominal pain. Peritoneal dialysis catheter with right hemipelvis. White blood cell count 8.37, hemoglobin 11.2, sodium of 132 BUN of 38 creatinine of 3.56. Albumin 3.3. Urinalysis is not suggestive of infection. Patient is afebrile heart rate of 73 normal sinus rhythm blood pressure of 120/64 he is 94% on room air. On the ER patient received a dose of IV ceftazidime as well as IV morphine. He was started on his peritoneal dialysis which will be sent for culture. Nephrology is on consult, ID was consulted. General surgery consulted for the constipation. REVIEW OF SYSTEMS: CONSTITUTIONAL: No fever, no malaise, no fatigue. HEENT: No recent visual problems or hearing problems. Denied any sore throat. CARDIOVASCULAR: No chest pain, orthopnea, PND, no palpitations, no syncope. PULMONARY: No shortness of breath, no cough, no hemoptysis. GASTROINTESTINAL: No diarrhea, no nausea, no vomiting, Reports abdominal pain and constipation NEUROLOGICAL: No headaches, no weakness, no numbness. HEMATOLOGICAL: Denies any bleeding or petechiae. GENITOURINARY: Denies any burning micturition, frequency, or urgency. MUSCULOSKELETAL/RHEUMATOLOGICAL: Denies any joint pain, swelling, or any muscle pain. ENDOCRINE: Denies any polyuria or polydipsia. The rest of the 14-point review of systems is negative. PHYSICAL EXAMINATION: GENERAL: The patient is alert and oriented x3, not in any acute distress. Well developed, well nourished. HEENT: Pupils are round and equally reacting to light. EOMI. No scleral icterus. No conjunctival pallor. Normocephalic, atraumatic. No pharyngeal erythema. No thyromegaly. CARDIOVASCULAR: S1 and S2 present. No murmurs, rubs, or gallops. PULMONARY: Chest is clear to auscultation, no wheezing or crackles. ABDOMEN: Soft, nontender, nondistended, Sluggish bowel sounds. No palpable organomegaly. MUSCULOSKELETAL: No joint swelling or deformity. EXTREMITIES: No cyanosis, clubbing, or pedal edema. NEUROLOGICAL: Gross neurological examination did not reveal any focal deficits. SKIN: No rashes. Assessment Abdominal pain and constipation End-stage renal disease maintained on peritoneal dialysis with concern for Bacterial peritonitis Diabetes Mellitus type 2 Hypertension Hyperlipidemia DVT hx Factor V Leiden Transverse Myelitis Hx of TBI Parathyroidectomy 2018 GI prophylaxis Full Code Plan Continue peritoneal dialysis per nephrology and fluid has been sent for cultures Nephrology on consult ID has been consulted for further management of antibiotic therapy Obtain reports from Alivia Cullman General surgery has been consulted for the constipation Home medications have been reviewed and resumed Continue lantus twice daily and recommend accuchecks ACHS and sliding scale insulin Monitor CBC, BMP The impression and plan of care has been dictated by Aspen Moody, Nurse Practitioner as directed. Dr. Mayra MD I have performed a history and physical examination and medical decision making of this patient, discussed the same with the dictator, and agree with the dictators assessment and plan as written, documented as a scribe. Based on total visit time, I have performed more than 50% of this visit. 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 History of Any Multi-Drug Resistant Organisms: None Reported, C-DIFF Date of last positivie culture/infection: 06/04/23 MDRO Source:: stool Past Surgical History: Tonsillectomy Additional Past Surgical History / Comment(s): parathyroid removal 2017, bl oodclot filter in groin 2013, bilateral catract surgery 04/2024 Past Anesthesia/Blood Transfusion Reactions: No Reported Reaction Additional Past Anesthesia/Blood Transfusion Reaction / Comment(s): claustraphobic has to be completely before placing mask on his face Smoking Status: Never smoker - Past Family History Father Family Medical History: Cancer Additional Family Medical History / Comment(s): skin Medications and Allergies Home Medications Medication Instructions Recorded Confirmed Type Aspirin EC [Ecotrin Low Dose] 81 mg PO DAILY 07/14/23 12/23/24 History Ezetimibe/Simvastatin 1 tab PO DAILY 07/14/23 12/23/24 History [Ezetimibe/Simvastatin 10-40 mg] Insulin Glargine,Hum.rec.anlog 40 units SQ BID 07/14/23 12/23/24 History [Lantus Solostar Pen] Isosorbide Mononitrate ER [Imdur] 60 mg PO DAILY 07/14/23 12/23/24 History carvediloL [Coreg] 25 mg PO BID 07/14/23 12/23/24 History cloNIDine HCL 0.2 mg PO TID 07/14/23 12/23/24 History hydrALAZINE HCL [Apresoline] 100 mg PO TID 07/14/23 12/23/24 History Famotidine [Pepcid] 20 mg PO DAILY #30 tab 07/18/23 12/23/24 Rx Folic Acid/Vit B Complex and C 0.8 mg PO DAILY 12/23/24 12/23/24 History [Purnima-Sb Tablet] Furosemide [Lasix] 40 mg PO DAILY 12/23/24 12/23/24 History HYDROcodone/APAP 7.5-325MG [[place] 1 tab PO Q8H PRN 12/23/24 12/23/24 History 7.5-325] Insulin Aspart [NovoLOG Flexpen] 10 - 25 units SQ AC-TID MDD 60 12/23/24 12/23/24 History units Lactulose [Cephulac] 20 gm PO TID PRN 12/23/24 12/23/24 History Potassium Chloride ER [K-Dur 10] 10 meq PO DAILY 12/23/24 12/23/24 History Semaglutide [Ozempic] 0.25 mg SQ FR 12/23/24 12/23/24 History Sodium Bicarbonate Tab 650 mg PO DAILY 12/23/24 12/23/24 History Spironolactone [Aldactone] 25 mg PO DAILY 12/23/24 12/23/24 History diphenhydrAMINE [Benadryl] 25 mg PO HS 12/23/24 12/23/24 History polyethylene glycoL 3350 [Miralax] 17 gm PO DAILY 12/23/24 12/23/24 History Allergies Allergy/AdvReac Type Severity Reaction Status Date / Time Penicillins Allergy Unknown Verified 12/23/24 10:39 Childhood Sulfa (Sulfonamide Allergy Rash/Hives Verified 12/23/24 10:39 Antibiotics) iv contrast AdvReac Unknown Uncoded 12/22/24 16:09 Physical Exam Vitals: Vital Signs Temp Pulse Pulse Resp BP BP Pulse Ox 12/23/24 07:47 98.9 F 73 17 146/75 97 12/23/24 02:31 98.4 F 84 16 120/64 94 L 12/23/24 01:28 98.7 F 77 18 105/73 94 L 12/23/24 01:16 98.7 F 75 18 112/81 94 L 12/22/24 16:05 99.1 F 75 20 117/72 95 Intake and Output 12/22/24 12/23/24 12/23/24 22:59 06:59 14:59 Other: Voiding Method Urinal # Voids 1 Weight 112.491 kg 112.491 kg Results CBC & Chem 7: 12/23/24 10:30 12/23/24 10:30 Labs: Abnormal Lab Results - Last 24 Hours (Table) 12/22/24 12/22/24 12/22/24 Range/Units 20:29 20:29 22:04 RBC 3.58 L (4.40-5.60) 10*6/uL Hgb 11.2 L (13.0-17.0) g/dL Hct 32.5 L (39.6-50.0) % Immature Gran # 0.05 H (0.00-0.04) 10*3/uL Sodium 132 L (137-145) mmol/L Chloride 96 L (98-107) mmol/L BUN 38 H (9-20) mg/dL Creatinine 3.56 H (0.66-1.25) mg/dL Glucose 112 H (74-99) mg/dL Total Protein 6.1 L (6.3-8.2) g/dL Albumin 3.3 L (3.5-5.0) g/dL Urine Protein 1+ H (Negative) Urine Mucus Rare H (None) /hpf Thrombosis Risk Factor Assmnt - Choose All That Apply Each Factor Represents 1 point: Obesity (BMI >25) Each Risk Factor Represents 2 Points: Age 61-74 years Each Risk Factor Represents 3 Points: History of DVT/PE Thrombosis Risk Factor Assessment Total Risk Factor Score: 6 Thrombosis Risk Factor Assessment Level: High Risk Assessment and Plan Time with Patient: Less than 30
[2024-12-23 14:10] LABS: Glucose, BF Source Peritoneal Fluid; Glucose, Body Fluid 240 mg/dL
[2024-12-23 15:16] LABS: Appearance,BF Hazy (Clear)
--- NOTE | 2024-12-23 15:18 | P.CONS ---
History of Present Illness - Reason for Consult Consult date: 12/23/24 PD catheter associated peritonitis Requesting physician: Angela Lambert - Chief Complaint Abdominal pain x few days - History of Present Illness Patient is a 69-year-old male with a past medical history significant for diabetes mellitus hypertension hyperlipidemia end-stage renal disease for the patient has been on peritoneal dialysis for more than a year patient started having symptoms of abdominal discomfort for the patient was evaluated at [facility] did have CT abdominal pelvis apparently was reported negative patient subsequent noticed to having cloudy peritoneal fluid for the patient did have a peritoneal fluid cultures obtained and he was started on vancomycin and ceftazidime through the PD however patient subsequently presented to [facility] complaining of persistent abdominal pain as well as constipation and apparently his last bowel movement has been in December and patient describing pain to the lower abdominal area sharp moderate is without radiation did have some nausea but no vomiting patient denies high-grade fever he did have a low- grade fever of 99.1 degrees for night in the ER and a 99.4 F this afternoon patient was not tachycardic hypotensive or hypoxic no need for supplemental oxygen patient did have a white count of 8.37 creatinine is 3.56 liver isms are normal urine is negative abdominal pelvis CT no suspicion abnormality patient was started on ceftazidime through the dialysis catheter the patient outpatient peritoneal dialysis fluid culture growing yeast that has prompted this consultation this has been the first episode of peritonitis for this patient as reported by the and the patient has been exposed to antibiotics or antifungal in the outpatient setting Review of Systems Positive point and negatives has been mentioned in the HPI, complete review of systems was performed and all other systems are negative 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 History of Any Multi-Drug Resistant Organisms: None Reported, C-DIFF Year Discovered:: 06/04/23 MDRO Source:: stool Past Surgical History: Tonsillectomy Additional Past Surgical History / Comment(s): parathyroid removal 2017, bloodclot filter in groin 2013, bilateral catract surgery 04/2024 Past Anesthesia/Blood Transfusion Reactions: No Reported Reaction Additional Past Anesthesia/Blood Transfusion Reaction / Comm: claustraphobic has to be completely before placing mask on his face Smoking Status: Never smoker - Past Family History Father Family Medical History: Cancer Additional Family Medical History / Comment(s): skin Medications and Allergies Home Medications Medication Instructions Recorded Confirmed Type Aspirin EC [Ecotrin Low Dose] 81 mg PO DAILY 07/14/23 12/23/24 History Ezetimibe/Simvastatin 1 tab PO DAILY 07/14/23 12/23/24 History [Ezetimibe/Simvastatin 10-40 mg] Insulin Glargine,Hum.rec.anlog 40 units SQ BID 07/14/23 12/23/24 History [Lantus Solostar Pen] Isosorbide Mononitrate ER [Imdur] 60 mg PO DAILY 07/14/23 12/23/24 History carvediloL [Coreg] 25 mg PO BID 07/14/23 12/23/24 History cloNIDine HCL 0.2 mg PO TID 07/14/23 12/23/24 History hydrALAZINE HCL [Apresoline] 100 mg PO TID 07/14/23 12/23/24 History Famotidine [Pepcid] 20 mg PO DAILY #30 tab 07/18/23 12/23/24 Rx Folic Acid/Vit B Complex and C 0.8 mg PO DAILY 12/23/24 12/23/24 History [Purnima-Sb Tablet] Furosemide [Lasix] 40 mg PO DAILY 12/23/24 12/23/24 History HYDROcodone/APAP 7.5-325MG [[place] 1 tab PO Q8H PRN 12/23/24 12/23/24 History 7.5-325] Insulin Aspart [NovoLOG Flexpen] 10 - 25 units SQ AC-TID MDD 60 12/23/24 12/23/24 History units Lactulose [Cephulac] 20 gm PO TID PRN 12/23/24 12/23/24 History Potassium Chloride ER [K-Dur 10] 10 meq PO DAILY 12/23/24 12/23/24 History Semaglutide [Ozempic] 0.25 mg SQ FR 12/23/24 12/23/24 History Sodium Bicarbonate Tab 650 mg PO DAILY 12/23/24 12/23/24 History Spironolactone [Aldactone] 25 mg PO DAILY 12/23/24 12/23/24 History diphenhydrAMINE [Benadryl] 25 mg PO HS 12/23/24 12/23/24 History polyethylene glycoL 3350 [Miralax] 17 gm PO DAILY 12/23/24 12/23/24 History Allergies Allergy/AdvReac Type Severity Reaction Status Date / Time Penicillins Allergy Unknown Verified 12/23/24 10:39 Childhood Sulfa (Sulfonamide Allergy Rash/Hives Verified 12/23/24 10:39 Antibiotics) iv contrast AdvReac Unknown Uncoded 12/22/24 16:09 Physical Exam Vitals: Vital Signs Temp Pulse Pulse Resp BP BP Pulse Ox 12/23/24 13:45 99.4 F 82 18 142/78 92 L 12/23/24 13:10 99.4 F 84 14 143/80 93 L 12/23/24 07:47 98.9 F 73 17 146/75 97 12/23/24 02:31 98.4 F 84 16 120/64 94 L 12/23/24 01:28 98.7 F 77 18 105/73 94 L 12/23/24 01:16 98.7 F 75 18 112/81 94 L 12/22/24 16:05 99.1 F 75 20 117/72 95 Intake and Output 12/23/24 12/23/24 12/23/24 06:59 14:59 22:59 Output Total 392 Balance -392 Output: Urine 300 Post Void Residual 92 Other: Voiding Method Urinal CAPD # Voids 1 1 Weight 112.491 kg GENERAL DESCRIPTION: Elderly male lying in bed, no distress. No tachypnea or accessory muscle of respiration use. HEENT: Shows Pallor , no scleral icterus. Oral mucous membrane is dry. NECK: Trachea central, no thyromegaly. LUNGS: Unlabored breathing. Clear to auscultation anteriorly. No wheeze or crackle. HEART: S1, S2, regular rate and rhythm. No loud murmur ABDOMEN: Soft, mild distention and tenderness EXTREMITIES: No edema of feet. SKIN: No rash, no masses palpable. NEUROLOGICAL: The patient is awake, alert, oriented x3, mood and affect normal. Results CBC & Chem 7: 12/24/24 09:05 12/24/24 09:05 Labs: Abnormal Lab Results - Last 24 Hours (Table) 06/23/25 06/23/25 06/23/25 Range/Units 20:29 20:29 22:04 RBC 3.58 L (4.40-5.60) 10*6/uL Hgb 11.2 L (13.0-17.0) g/dL Hct 32.5 L (39.6-50.0) % MPV (9.5-12.2) fL Immature Gran # 0.05 H (0.00-0.04) 10*3/uL Neutrophils # (1.80-7.70) 10*3/uL Lymphocytes # (0.90-5.00) 10*3/uL Sodium 132 L (137-145) mmol/L Chloride 96 L (98-107) mmol/L Carbon Dioxide (22-30) mmol/L BUN 38 H (9-20) mg/dL Creatinine 3.56 H (0.66-1.25) mg/dL Glucose 112 H (74-99) mg/dL POC Glucose (mg/dL) (70-110) mg/dL Total Protein 6.1 L (6.3-8.2) g/dL Albumin 3.3 L (3.5-5.0) g/dL Urine Protein 1+ H (Negative) Urine Mucus Rare H (None) /hpf 12/23/24 12/23/24 12/23/24 Range/Units 10:30 10:30 12:04 RBC 3.65 L (4.40-5.60) 10*6/uL Hgb 11.2 L (13.0-17.0) g/dL Hct 33.5 L (39.6-50.0) % MPV 9.1 L (9.5-12.2) fL Immature Gran # 0.05 H (0.00-0.04) 10*3/uL Neutrophils # 7.71 H (1.80-7.70) 10*3/uL Lymphocytes # 0.54 L (0.90-5.00) 10*3/uL Sodium 132 L (137-145) mmol/L Chloride 95 L (98-107) mmol/L Carbon Dioxide 31 H (22-30) mmol/L BUN 39 H (9-20) mg/dL Creatinine 3.86 H (0.66-1.25) mg/dL Glucose 137 H (74-99) mg/dL POC Glucose (mg/dL) 219 H (70-110) mg/dL Total Protein (6.3-8.2) g/dL Albumin (3.5-5.0) g/dL Urine Protein (Negative) Urine Mucus (None) /hpf Assessment and Plan (1) Peritonitis Current Visit: Yes Status: Acute Code(s): K65.9 - PERITONITIS, UNSPECIFIED SNOMED Code(s): 73156599 (2) Allergy to multiple antibiotics Current Visit: Yes Status: Acute Code(s): Z88.1 - ALLERGY STATUS TO OTHER ANTIBIOTIC AGENTS SNOMED Code(s): 788343439 (3) Fungal infection associated with peritoneal dialysis catheter Current Visit: Yes Status: Acute Code(s): FQF2700 - SNOMED Code(s): 107975648 Plan: 1patient presented to the hospital with abdominal constipation in this patient who is end-stage renal disease on peritoneal dialysis with significant cloudy urine and outpatient peritoneal fluid culture growing yeast patient has not been on any antibiotics or antifungal in the outpatient setting except vancomycin and Fortaz that he received for this episode 2patient will need to have removal of this dialysis catheter in order to completely cure of this infection the same discussed with the as well as with nephrology 3repeat peritoneal fluid cell count and culture have been obtained results will be followed 4patient will be empirically started on fluconazole 400 mg IV x 1 followed by 200 mg daily while waiting for the ID sensitivity of this fungal pathogen at the bedside multiple question concern answered in layman term We will follow on clinical condition and cultures to further adjust medication if needed Thank you for this consultation we will follow the patient along with you Dictation was produced using [employer] dictation software. please excuse any grammatical, word or spelling errors.
--- NOTE | 2024-12-23 16:15 | FL ---
EXAMINATION TYPE: FL barium enema DATE OF EXAM: 12/23/2024 3:24 PM CLINICAL INDICATION:Male, 69 years old with history of sigmoid obstruction; COMPARISON: CT 12/22/2024 TECHNIQUE: The procedure was explained and patient history elicited. All patient questions were answ ered prior to beginning. Multiple spot fluoroscopic images of the colon were obtained after the recta l administration of Gastrografin as the contrast agent. Multiple postprocedural overhead images, we re obtained and reviewed. DAP: NOT REPORTED [email or web address] FINDINGS: Limited exam for sigmoid obstruction. There is free flow of contrast throughout the sigmoid colon to the descending colon. No evidence for obstruction. No evidence for extravasation. IVC filte r present. IMPRESSION: 1. No evidence for abnormal stricture or mass lesion within the sigmoid colon. [facility], , 12/23/2024 4:12 PM
[2024-12-23 17:10] LABS: Glucose,Whole Blood 260 mg/dL (70-110)
[2024-12-23] MEDS: FLUCONAZOLE IN NACL,ISO-OSM 400 MG in SALINE 1 200ML.BAG IVPB STA (17:12)
[2024-12-23] MEDS: INSULIN LISPRO (HumaLOG) 100 UNIT/ML 10 mL VL SQ SCH (17:13)
[2024-12-23] MEDS: CEFTAZIDIME INTRAPERIT SCH (18:40)
[2024-12-23] MEDS: DIALYSIS DEX INTRAPERIT SCH (18:40)
[2024-12-23 20:42] LABS: Glucose,Whole Blood 254 mg/dL (70-110)
[2024-12-23] MEDS: diphenhydrAMINE 25 MG CAP PO SCH (22:08)
[2024-12-23] MEDS: INSULIN GLARGINE (LANTUS) 100 UNIT/ML SYR SQ SCH (22:09)
[2024-12-24] MEDS ORDERED: DIALYSIS (PERIT 1.5%) 2,000 ML 30 G/2,000 ML BAG INTRAPERIT SCH
[2024-12-24] MEDS: DIALYSIS (PERIT 2.5%) 2,500 ML 50 G/2,000 ML BAG INTRAPERIT SCH (00:18)
[2024-12-24 07:15] LABS: Glucose,Whole Blood 152 mg/dL (70-110)
[2024-12-24] MEDS: FAMOTIDINE 20 MG TAB PO SCH (08:46)
[2024-12-24] MEDS: ATORVASTATIN 20 MG TAB PO SCH (08:46)
[2024-12-24] MEDS: SODIUM BICARBONATE TAB 650 MG TAB PO SCH (08:47)
[2024-12-24] MEDS: FOLIC ACID-VIT B COMPLEX-VIT C 1 CAP PO SCH (08:47)
[2024-12-24] MEDS: ISOSORBIDE MONONITRATE ER 60 MG TAB.ER.24H PO SCH (08:48)
[2024-12-24] MEDS: SPIRONOLACTONE 25 MG TAB PO SCH (08:48)
[2024-12-24] MEDS: FLUCONAZOLE 100 MG TAB PO SCH (08:48)
[2024-12-24] MEDS: FUROSEMIDE 40 MG TAB PO SCH (08:48)
[2024-12-24] MEDS: ASPIRIN 81 MG PO SCH (08:48)
[2024-12-24] MEDS: EZETIMIBE 10 MG TAB PO SCH (08:49)
[2024-12-24 09:35] LABS: Basophils # (A) 0.03 10*3/uL (0.00-0.10); Basophils % (A) 0.4 %; Eosinophils # (A) 0.16 10*3/uL (0.04-0.35); Eosinophils % (A) 2.2 %; HCT 27.6 % (39.6-50.0); HGB 9.4 g/dL (13.0-17.0); Lymphocytes # (A) 1.01 10*3/uL (0.90-5.00); Lymphocytes % (A) 13.9 %; MCH 31.3 pg (27.0-32.0); MCHC 34.1 g/dL (32.0-37.0); MCV 92.0 fL (80.0-97.0); Monocytes # (A) 0.73 10*3/uL (0.20-1.00); Monocytes % (A) 10.1 %; Neutrophils # (A) 5.26 10*3/uL (1.80-7.70); Neutrophils % (A) 72.4 %; Platelet Count 228 10*3/uL (140-440); RBC 3.00 10*6/uL (4.40-5.60); RDW 13.2 % (11.5-14.5); WBC 7.26 10*3/uL (4.50-10.00)
[2024-12-24 09:40] LABS: African American GFR (CKD) 18 (>60 ml/min/1.73 sqM); Anion Gap 9 mmol/L; Blood Urea Nitrogen 35 mg/dL (9-20); Calcium 8.9 mg/dL (8.4-10.2); Carbon Dioxide 29 mmol/L (22-30); Chloride 95 mmol/L (98-107); Glucose 163 mg/dL (74-99); Non-African American GFR(CKD) 16 (>60 ml/min/1.73 sqM); Potassium 3.6 mmol/L (3.5-5.1); Sodium 133 mmol/L (137-145)
[2024-12-24 10:44] LABS: Magnesium 1.9 mg/dL (1.6-2.3)
--- NOTE | 2024-12-24 11:37 | P.PN ---
Subjective Progress Note Date: 12/24/24 SURGICAL PROGRESS NOTE CHIEF COMPLAINT: Abdominal pain HISTORY OF PRESENT ILLNESS: Patient reports he is feeling better today. His right sided abdominal pain has improved. He has had couple bowel movements yesterday and 2 bowel movements this morning. Barium enema study showed no evidence of obstruction. Patient tolerating clear liquids. Afebrile. WBC 7.26. Peritoneal fluid culture pending PHYSICAL EXAM: VITAL SIGNS: Reviewed. GENERAL: Well-developed in no acute distress. ABDOMEN: Soft. Nondistended. Nontender. NEUROLOGIC: Alert and oriented. Cranial nerves II through XII grossly intact. ASSESSMENT: 1. Abdominal pain 2. Peritonitis 3. Constipation PLAN: - Patient tentatively scheduled for PD catheter removal on if needed with Dr. Valentine - Awaiting cultures from peritoneal fluid - Continue antibiotics - Continue MiraLAX Physician Cheese Cook note has been reviewed by physician. Signing provider agrees with the documented findings, assessment, and plan of care. I have personally seen and examined the patient, reviewed the SEAM FINISHER /PAs history, exam and MDM and agree with the assessment and plan as written. Based on total visit time, I have performed more than 50% of the visit. As above: Patient feels better. Has had multiple loose stools. Still nauseated. Advance to full liquids. Await peritoneal fluid culture results from prehospitalization. Possible dialysis catheter removal tomorrow. Will discuss further with nephrology. Objective - Vital Signs Vital signs: Vital Signs Temp 97.7 F 12/24/24 11:16 Pulse 65 12/24/24 11:16 Resp 16 12/24/24 11:16 BP 110/66 12/24/24 11:16 Pulse Ox 94 L 12/24/24 11:16 FiO2 Intake & Output 12/23/24 12/24/24 12/24/24 18:59 06:59 18:59 Intake Total 0 Output Total 392 Balance -392 0 Intake: Oral 0 Output: Urine 300 Post Void Residual 92 Other: Voiding Method CAPD Urinal Urinal CAPD CAPD # Voids 1 3 # Bowel Movements 2 - Labs CBC & Chem 7: 12/24/24 09:05 12/24/24 09:05 Labs: Abnormal Lab Results - Last 24 Hours (Table) 12/22/24 12/23/24 12/23/24 Range/Units 19:59 12:04 17:04 RBC (4.40-5.60) 10*6/uL Hgb (13.0-17.0) g/dL Hct (39.6-50.0) % MPV (9.5-12.2) fL Immature Gran # (0.00-0.04) 10*3/uL Sodium (137-145) mmol/L Chloride (98-107) mmol/L BUN (9-20) mg/dL Creatinine (0.66-1.25) mg/dL Glucose (74-99) mg/dL POC Glucose (mg/dL) 219 H 260 H (70-110) mg/dL Fluid Appearance Hazy A (Clear) 12/23/24 12/24/24 12/24/24 Range/Units 20:39 07:14 09:05 RBC 3.00 L (4.40-5.60) 10*6/uL Hgb 9.4 L D (13.0-17.0) g/dL Hct 27.6 L (39.6-50.0) % MPV 9.3 L (9.5-12.2) fL Immature Gran # 0.07 H (0.00-0.04) 10*3/uL Sodium (137-145) mmol/L Chloride (98-107) mmol/L BUN (9-20) mg/dL Creatinine (0.66-1.25) mg/dL Glucose (74-99) mg/dL POC Glucose (mg/dL) 254 H 152 H (70-110) mg/dL Fluid Appearance (Clear) 12/24/24 Range/Units 09:05 RBC (4.40-5.60) 10*6/uL Hgb (13.0-17.0) g/dL Hct (39.6-50.0) % MPV (9.5-12.2) fL Immature Gran # (0.00-0.04) 10*3/uL Sodium 133 L (137-145) mmol/L Chloride 95 L (98-107) mmol/L BUN 35 H (9-20) mg/dL Creatinine 3.71 H (0.66-1.25) mg/dL Glucose 163 H (74-99) mg/dL POC Glucose (mg/dL) (70-110) mg/dL Fluid Appearance (Clear) Microbiology - Last 24 Hours (Table) 12/22/24 19:59 Gram Stain - Preliminary Peritoneal Fluid Body Fluid Culture - Preliminary
--- NOTE | 2024-12-24 11:39 | P.PN ---
Subjective Progress Note Date: 12/24/24 Patient seen as follow up for ESRD. Patient status post barium enema. States he has had multiple bowel movements, and his abdominal pain resolved. Patient states he has been having adequate urine output. Exam: Vital signs reviewed. GENERAL: Patient is awake oriented, comfortable in bed CARDIO: Regular rate rhythm. PULM: No audible rhonchi or wheezes. ABD: Diffuse tenderness to palpation, abdominal distension EXT: no edema present Objective - Vital Signs Vital signs: Vital Signs Temp 98.2 F 12/24/24 07:05 Pulse 67 12/24/24 07:05 Resp 16 12/24/24 07:05 BP 145/91 12/24/24 07:05 Pulse Ox 95 12/24/24 07:05 FiO2 Intake & Output 12/23/24 12/24/24 12/24/24 18:59 06:59 18:59 Output Total 392 Balance -392 Output: Urine 300 Post Void Residual 92 Other: Voiding Method CAPD Urinal CAPD # Voids 1 3 # Bowel Movements 2 - Labs CBC & Chem 7: 12/24/24 09:05 12/24/24 09:05 Labs: Abnormal Lab Results - Last 24 Hours (Table) 12/22/24 12/23/24 12/23/24 Range/Units 19:59 10:30 10:30 RBC 3.65 L (4.40-5.60) 10*6/uL Hgb 11.2 L (13.0-17.0) g/dL Hct 33.5 L (39.6-50.0) % MPV 9.1 L (9.5-12.2) fL Immature Gran # 0.05 H (0.00-0.04) 10*3/uL Neutrophils # 7.71 H (1.80-7.70) 10*3/uL Lymphocytes # 0.54 L (0.90-5.00) 10*3/uL Sodium 132 L (137-145) mmol/L Chloride 95 L (98-107) mmol/L Carbon Dioxide 31 H (22-30) mmol/L BUN 39 H (9-20) mg/dL Creatinine 3.86 H (0.66-1.25) mg/dL Glucose 137 H (74-99) mg/dL POC Glucose (mg/dL) (70-110) mg/dL Fluid Appearance Hazy A (Clear) 12/23/24 12/23/24 12/23/24 Range/Units 12:04 17:04 20:39 RBC (4.40-5.60) 10*6/uL Hgb (13.0-17.0) g/dL Hct (39.6-50.0) % MPV (9.5-12.2) fL Immature Gran # (0.00-0.04) 10*3/uL Neutrophils # (1.80-7.70) 10*3/uL Lymphocytes # (0.90-5.00) 10*3/uL Sodium (137-145) mmol/L Chloride (98-107) mmol/L Carbon Dioxide (22-30) mmol/L BUN (9-20) mg/dL Creatinine (0.66-1.25) mg/dL Glucose (74-99) mg/dL POC Glucose (mg/dL) 219 H 260 H 254 H (70-110) mg/dL Fluid Appearance (Clear) 12/24/24 Range/Units 07:14 RBC (4.40-5.60) 10*6/uL Hgb (13.0-17.0) g/dL Hct (39.6-50.0) % MPV (9.5-12.2) fL Immature Gran # (0.00-0.04) 10*3/uL Neutrophils # (1.80-7.70) 10*3/uL Lymphocytes # (0.90-5.00) 10*3/uL Sodium (137-145) mmol/L Chloride (98-107) mmol/L Carbon Dioxide (22-30) mmol/L BUN (9-20) mg/dL Creatinine (0.66-1.25) mg/dL Glucose (74-99) mg/dL POC Glucose (mg/dL) 152 H (70-110) mg/dL Fluid Appearance (Clear) Microbiology - Last 24 Hours (Table) 12/22/24 19:59 Gram Stain - Preliminary Peritoneal Fluid Body Fluid Culture - Preliminary Assessment and Plan Assessment: ESRD receiving daily peritoneal dialysis, CT/abd pelvis showing no hydronephrosis Peritoneal dialysis peritonitis s/p vancomycin intraperitoneal on 12/20/2024 and maintained on daily ceftazidime and Diflucan Constipation, CT abd/pelvis showing stool impaction, no signs of perforation Chronic normocytic anemia Mild hyponatremia Insulin dependent Diabetes Mellitus Volume overloaded Hypertension, stable Plan: Patient will need removal of dialysis catheter if cell count in the PD fluid is not improving C/w ceftazidime and Diflucan Order vancomycin level. Cell count daily. Fluid cultures pending. Patient empiracally on IV fluconazole while awaiting for results per ID. May have to remove PD catheter. General surgery following, s/p barium enema w/gastrografin showing no obstruction.
[2024-12-24 12:51] LABS: Glucose,Whole Blood 200 mg/dL (70-110)
--- NOTE | 2024-12-24 16:17 | P.PN ---
Subjective Progress Note Date: 12/24/24 This is a pleasant 69-year-old male with medical history significant for end- stage renal disease maintained on peritoneal hemodialysis for the last year and a half, DVT, hypertension, hyperlipidemia, TBI, transverse myelitis, Factor V, diabetes mellitus. Patient comes into the hospital with come of complaints of abdominal pain and constipation. Last bowel movement was reportedly December 08 and has not been passing much gas. Denies any nausea, vomiting or diarrhea. Patient states he has had increasing abdominal pain. They have tried multiple laxatives and stool softeners without success. [facility] pelvis that showed stool impaction although otherwise no abnormality. He has been getting his regular peritoneal dialysis treatment without issues. On Sunday she noticed a dark yellow color with the fluid being taken off during dialysis had improved some with antibiotics but is not clear as it usually is. He was given vancomycin and ceftazidime through the peritoneal dialysis at the nephrology office and his did it once at home. Because of the continued discoloration of the peritoneal fluid which was yellow in color with mucus per the , they were instructed to come to the ER. CT abdomen pelvis reveals no suspicious abnormality to account for the abdominal pain. Peritoneal dialysis catheter with right hemipelvis. White blood cell count 8.37, hemoglobin 11.2, sodium of 132 BUN of 38 creatinine of 3.56. Albumin 3.3. Urinalysis is not suggestive of infection. Patient is afebrile heart rate of 73 normal sinus rhythm blood pressure of 120/64 he is 94% on room air. On the ER patient received a dose of IV ceftazidime as well as IV morphine. He was started on his peritoneal dialysis which will be sent for culture. Nephrology i s on consult, ID was consulted. General surgery consulted for the constipation. 12/24/2024 Patient is getting follow-up with medical floor. He is status post barium enema and has had 2 large bowel movements. He is currently undergoing a CAPD with peritoneal cultures currently pending at this time. He continues on a course of antibiotics with IV ceftazidime peritoneal dialysis. ID and nephrology are following closely. REVIEW OF SYSTEMS: CONSTITUTIONAL: No fever, no malaise, no fatigue. HEENT: No recent visual problems or hearing problems. Denied any sore throat. CARDIOVASCULAR: No chest pain, orthopnea, PND, no palpitations, no syncope. PULMONARY: No shortness of breath, no cough, no hemoptysis. GASTROINTESTINAL: No diarrhea, no nausea, no vomiting, Reports abdominal pain and constipation NEUROLOGICAL: No headaches, no weakness, no numbness. PHYSICAL EXAMINATION: GENERAL: The patient is alert and oriented x3, not in any acute distress. Well developed, well nourished. HEENT: Pupils are round and equally reacting to light. EOMI. No scleral icterus. No conjunctival pallor. Normocephalic, atraumatic. No pharyngeal erythema. No thyromegaly. CARDIOVASCULAR: S1 and S2 present. No murmurs, rubs, or gallops. PULMONARY: Chest is clear to auscultation, no wheezing or crackles. ABDOMEN: Soft, nontender, nondistended, Sluggish bowel sounds. No palpable organomegaly. MUSCULOSKELETAL: No joint swelling or deformity. EXTREMITIES: No cyanosis, clubbing, or pedal edema. NEUROLOGICAL: Gross neurological examination did not reveal any focal deficits. SKIN: No rashes. Assessment Abdominal pain and constipation End-stage renal disease maintained on peritoneal dialysis with concern for Bacterial peritonitis Diabetes Mellitus type 2 Hypertension Hyperlipidemia DVT hx Factor V Leiden Transverse Myelitis Hx of TBI Parathyroidectomy 2018 GI prophylaxis Full Code Plan Continue peritoneal dialysis per nephrology and fluid has been sent for cultures Nephrology on consult ID has been consulted for further management of antibiotic therapy Obtain reports from [facility] General surgery following and patient is status post barium enema Home medications have been reviewed and resumed Continue lantus twice daily and recommend accuchecks ACHS and sliding scale insulin Monitor CBC, BMP The impression and plan of care has been dictated by Aspen Moody, Nurse Practitioner as directed. Dr. Mayra MD I have performed a history and physical examination and medical decision making of this patient, discussed the same with the dictator, and agree with the dictators assessment and plan as written, documented as a scribe. Based on total visit time, I have performed more than 50% of this visit. Objective - Vital Signs Vital signs: Vital Signs Temp 98.2 F 12/24/24 07:05 Pulse 67 12/24/24 07:05 Resp 16 12/24/24 07:05 BP 145/91 12/24/24 07:05 Pulse Ox 95 12/24/24 07:05 FiO2 Intake & Output 12/23/24 12/24/24 12/24/24 18:59 06:59 18:59 Intake Total 0 Output Total 392 Balance -392 0 Intake: Oral 0 Output: Urine 300 Post Void Residual 92 Other: Voiding Method CAPD Urinal Urinal CAPD CAPD # Voids 1 3 # Bowel Movements 2 - Labs CBC & Chem 7: 12/24/24 09:05 12/24/24 09:05 Labs: Abnormal Lab Results - Last 24 Hours (Table) 12/22/24 12/23/24 12/23/24 Range/Units 19:59 10:30 10:30 RBC 3.65 L (4.40-5.60) 10*6/uL Hgb 11.2 L (13.0-17.0) g/dL Hct 33.5 L (39.6-50.0) % MPV 9.1 L (9.5-12.2) fL Immature Gran # 0.05 H (0.00-0.04) 10*3/uL Neutrophils # 7.71 H (1.80-7.70) 10*3/uL Lymphocytes # 0.54 L (0.90-5.00) 10*3/uL Sodium 132 L (137-145) mmol/L Chloride 95 L (98-107) mmol/L Carbon Dioxide 31 H (22-30) mmol/L BUN 39 H (9-20) mg/dL Creatinine 3.86 H (0.66-1.25) mg/dL Glucose 137 H (74-99) mg/dL POC Glucose (mg/dL) (70-110) mg/dL Fluid Appearance Hazy A (Clear) 12/23/24 12/23/24 12/23/24 Range/Units 12:04 17:04 20:39 RBC (4.40-5.60) 10*6/uL Hgb (13.0-17.0) g/dL Hct (39.6-50.0) % MPV (9.5-12.2) fL Immature Gran # (0.00-0.04) 10*3/uL Neutrophils # (1.80-7.70) 10*3/uL Lymphocytes # (0.90-5.00) 10*3/uL Sodium (137-145) mmol/L Chloride (98-107) mmol/L Carbon Dioxide (22-30) mmol/L BUN (9-20) mg/dL Creatinine (0.66-1.25) mg/dL Glucose (74-99) mg/dL POC Glucose (mg/dL) 219 H 260 H 254 H (70-110) mg/dL Fluid Appearance (Clear) 12/24/24 12/24/24 12/24/24 Range/Units 07:14 09:05 09:05 RBC 3.00 L (4.40-5.60) 10*6/uL Hgb 9.4 L D (13.0-17.0) g/dL Hct 27.6 L (39.6-50.0) % MPV 9.3 L (9.5-12.2) fL Immature Gran # 0.07 H (0.00-0.04) 10*3/uL Neutrophils # (1.80-7.70) 10*3/uL Lymphocytes # (0.90-5.00) 10*3/uL Sodium 133 L (137-145) mmol/L Chloride 95 L (98-107) mmol/L Carbon Dioxide (22-30) mmol/L BUN 35 H (9-20) mg/dL Creatinine 3.71 H (0.66-1.25) mg/dL Glucose 163 H (74-99) mg/dL POC Glucose (mg/dL) 152 H (70-110) mg/dL Fluid Appearance (Clear) Microbiology - Last 24 Hours (Table) 12/22/24 19:59 Gram Stain - Preliminary Peritoneal Fluid Body Fluid Culture - Preliminary Assessment and Plan Time with Patient: Less than 30
[2024-12-24 16:21] LABS: Appearance,BF Hazy (Clear)
[2024-12-24 17:17] LABS: Glucose,Whole Blood 274 mg/dL (70-110)
[2024-12-24] MEDS: CEFTAZIDIME INTRAPERIT SCH (17:43)
[2024-12-24] MEDS: DIALYSIS DEX INTRAPERIT SCH (17:43)
[2024-12-24 21:12] LABS: Glucose,Whole Blood 211 mg/dL (70-110)
[2024-12-25 05:54] LABS: Glucose,Whole Blood 141 mg/dL (70-110)
[2024-12-25 10:32] LABS: Glucose,Whole Blood 90 mg/dL (70-110)
[2024-12-25 12:11] LABS: Glucose,Whole Blood 97 mg/dL (70-110)
[2024-12-25] MEDS: IV FLUID CONTINUATION 1,000 ML IV ONE (13:29)
[2024-12-25] MEDS: SODIUM CHLORIDE 0.9% 1,000 ML IV ONE (13:29)
[2024-12-25] MEDS: HEPARIN SODIUM,PORCINE 5,000 UNIT/ML 1 ML VIAL SQ STA (14:01)
[2024-12-25 14:08] LABS: Glucose,Whole Blood 77 mg/dL (70-110)
[2024-12-25] MEDS ORDERED: KETAMINE HCL IN 0.9 % NACL 50 MG/5 ML SYRINGE ONE (14:10)
[2024-12-25] MEDS ORDERED: PROPOFOL 10 MG/ML 20 ML VIAL IV ONE (14:10)
[2024-12-25] MEDS ORDERED: fentaNYL (PF) 50 MCG/ML 2 ML AMP ONE (14:10)
[2024-12-25] MEDS ORDERED: MIDAZOLAM 2 MG/2 ML VIAL ONE (14:10)
[2024-12-25] MEDS: BUPIVACAINE (PF) 0.25% 30 ML VIAL SQ ONE (14:27)
[2024-12-25 15:02] LABS: Glucose,Whole Blood 79 mg/dL (70-110)
--- NOTE | 2024-12-25 15:09 | P.OP ---
Date of Procedure: 12/25/24 Procedure(s) Performed: PREOPERATIVE DIAGNOSIS: Renal failure, yeast peritonitis POSTOPERATIVE DIAGNOSIS: Same PROCEDURE: PD cath removal SURGEON: Meme EBL: 5 mL ANESTHESIA: Sedation and local COMPLICATIONS: None OPERATIVE PROCEDURE: Patient was placed in the supine position. The abdomen was prepped and draped in usual sterile fashion. The previous paramedian incision was re-incised after localizing the skin. The subcutaneous tissues were divided using electrocautery. Blunt dissection around the cuff that was present at the fascia and peritoneum took place. The cuff was fully mobilized. The catheter was removed from the perineal cavity. The tip was sent to lab for culture. The outer cuff was dissected from the saphenous fascia using electrocautery. The catheter was cut on the other side of that cuff and the catheter was removed. The fascial defect was closed using a single [id number] 0 Vicryl stitch. The subcutaneous tissues were closed using 3-0 Vicryl sutures and the skin using 4-0 Monocryl sutures. Skin glue and sterile dressings were applied. DISPOSITION: Stable to recovery room
--- NOTE | 2024-12-25 15:16 | P.PN ---
Subjective Progress Note Date: 12/24/24 Principal diagnosis: Reason for follow-up is PD catheter associated peritonitis Patient is a 69-year-old male with a past medical history significant for diabetes mellitus hypertension hyperlipidemia end-stage renal disease for the patient has been on peritoneal dialysis for more than a year has been diagnosed with PD catheter associated peritonitis with outpatient culture positive for Sheela probably this consultation. On today's evaluation that is 12/24/2024,the patient denies any fever or any chills, patient is breathing comfortably on room air, the patient denies chest pain shortness of breath and no significant cough, patient mention some improvement in abdominal discomfort complaining of diarrhea. Patient white count 7.26, creatinine 3.7 1 repeat peritoneal fluid white cell is 1115 Objective - Vital Signs Vital signs: Vital Signs Temp 97.7 F 12/24/24 11:16 Pulse 65 12/24/24 11:16 Resp 16 12/24/24 11:16 BP 110/66 12/24/24 11:16 Pulse Ox 94 L 12/24/24 11:16 FiO2 Intake & Output 12/23/24 12/24/24 12/24/24 18:59 06:59 18:59 Intake Total 0 Output Total 392 Balance -392 0 Intake: Oral 0 Output: Urine 300 Post Void Residual 92 Other: Voiding Method CAPD Urinal Urinal CAPD CAPD # Voids 1 3 # Bowel Movements 2 - Exam GENERAL DESCRIPTION: An elderly male lying in bed in no distress RESPIRATORY SYSTEM: Unlabored breathing , decreased breath sounds at bases HEART: S1 S2 regular rate and rhythm , ABDOMEN: Soft , mild distention and tenderness EXTREMITIES: No edema feet - Labs CBC & Chem 7: 12/24/24 09:05 12/24/24 09:05 Labs: Abnormal Lab Results - Last 24 Hours (Table) 12/22/24 12/23/24 12/23/24 Range/Units 19:59 12:04 17:04 RBC (4.40-5.60) 10*6/uL Hgb (13.0-17.0) g/dL Hct (39.6-50.0) % MPV (9.5-12.2) fL Immature Gran # (0.00-0.04) 10*3/uL Sodium (137-145) mmol/L Chloride (98-107) mmol/L BUN (9-20) mg/dL Creatinine (0.66-1.25) mg/dL Glucose (74-99) mg/dL POC Glucose (mg/dL) 219 H 260 H (70-110) mg/dL Fluid Appearance Hazy A (Clear) 12/23/24 12/24/24 12/24/24 Range/Units 20:39 07:14 09:05 RBC 3.00 L (4.40-5.60) 10*6/uL Hgb 9.4 L D (13.0-17.0) g/dL Hct 27.6 L (39.6-50.0) % MPV 9.3 L (9.5-12.2) fL Immature Gran # 0.07 H (0.00-0.04) 10*3/uL Sodium (137-145) mmol/L Chloride (98-107) mmol/L BUN (9-20) mg/dL Creatinine (0.66-1.25) mg/dL Glucose (74-99) mg/dL POC Glucose (mg/dL) 254 H 152 H (70-110) mg/dL Fluid Appearance (Clear) 12/24/24 Range/Units 09:05 RBC (4.40-5.60) 10*6/uL Hgb (13.0-17.0) g/dL Hct (39.6-50.0) % MPV (9.5-12.2) fL Immature Gran # (0.00-0.04) 10*3/uL Sodium 133 L (137-145) mmol/L Chloride 95 L (98-107) mmol/L BUN 35 H (9-20) mg/dL Creatinine 3.71 H (0.66-1.25) mg/dL Glucose 163 H (74-99) mg/dL POC Glucose (mg/dL) (70-110) mg/dL Fluid Appearance (Clear) Microbiology - Last 24 Hours (Table) 12/22/24 19:59 Gram Stain - Preliminary Peritoneal Fluid Body Fluid Culture - Preliminary Assessment and Plan (1) Peritonitis Current Visit: Yes Status: Acute Code(s): K65.9 - PERITONITIS, UNSPECIFIED SNOMED Code(s): 75311731 (2) Allergy to multiple antibiotics Current Visit: Yes Status: Acute Code(s): Z88.1 - ALLERGY STATUS TO OTHER ANTIBIOTIC AGENTS SNOMED Code(s): 735348254 (3) Fungal infection associated with peritoneal dialysis catheter Current Visit: Yes Status: Acute Code(s): SGF4120 - SNOMED Code(s): 295507756 Plan: 1patient presented to the hospital with abdominal constipation in this patient who is end-stage renal disease on peritoneal dialysis with significant cloudy urine and outpatient peritoneal fluid culture growing yeast patient has not been on any antibiotics or antifungal in the outpatient setting except vancomycin and Fortaz that he received for this episode 2patient will need to have removal of this dialysis catheter in order to completely cure of this infection the same General Surgery has been consulted with a tentative plan for removal of the dialysis catheter tomorrow 3repeat peritoneal fluid cell count and culture have been obtained cultures currently pending 4patient to continue with the Diflucan 200 mg daily while waiting for the ID sensitivity of this fungal pathogen at the bedside multiple question concern answered in layman term Dictation was produced using [employer] dictation software. please excuse any grammatical, word or spelling errors. Time with Patient: Less than 30
--- NOTE | 2024-12-25 15:17 | P.PN ---
Subjective Progress Note Date: 12/25/24 Principal diagnosis: Reason for follow-up is PD catheter associated peritonitis Patient is a 69-year-old male with a past medical history significant for diabetes mellitus hypertension hyperlipidemia end-stage renal disease for the patient has been on peritoneal dialysis for more than a year has been diagnosed with PD catheter associated peritonitis with outpatient culture positive for Sheela probably this consultation. On today's evaluation that is 12/25/2024,the patient remains to be afebrile, patient is on room air not requiring supplemental oxygen and denies any shortness of breath no chest pain or cough.Patient denies having any nausea or vomiting, improvement in abdominal pain and resolution of the diarrhea. No new lab has been obtained today. Peritoneal fluid culture with Sheela parapsilosis Objective - Vital Signs Vital signs: Vital Signs Temp 97.4 F L 12/25/24 14:52 Pulse 50 L 12/25/24 15:00 Resp 14 12/25/24 15:00 BP 150/74 12/25/24 15:00 Pulse Ox 94 L 12/25/24 15:00 FiO2 Intake & Output 12/24/24 12/25/24 12/25/24 18:59 06:59 18:59 Intake Total 0 200 Output Total 480 5 Balance 0 -480 195 Intake: IV 200 Oral 0 Output: Urine 480 Estimated Blood Loss 5 Other: Voiding Method Urinal Urinal CAPD CAPD # Voids 1 1 - Exam GENERAL DESCRIPTION: An elderly male lying in bed in no distress RESPIRATORY SYSTEM: Unlabored breathing , decreased breath sounds at bases HEART: S1 S2 regular rate and rhythm , ABDOMEN: Soft , mild distention and tenderness EXTREMITIES: No edema feet - Labs CBC & Chem 7: 12/24/24 09:05 12/24/24 09:05 Labs: Abnormal Lab Results - Last 24 Hours (Table) 12/24/24 12/24/24 12/24/24 Range/Units 09:37 17:14 21:09 POC Glucose (mg/dL) 274 H 211 H (70-110) mg/dL Fluid Appearance Hazy A (Clear) 12/25/24 Range/Units 05:53 POC Glucose (mg/dL) 141 H (70-110) mg/dL Fluid Appearance (Clear) Microbiology - Last 24 Hours (Table) 12/22/24 19:59 Gram Stain - Preliminary Peritoneal Fluid Body Fluid Culture - Preliminary Sheela parapsilosis group Assessment and Plan (1) Peritonitis Current Visit: Yes Status: Acute Code(s): K65.9 - PERITONITIS, UNSPECIFIED SNOMED Code(s): 58268927 (2) Allergy to multiple antibiotics Current Visit: Yes Status: Acute Code(s): Z88.1 - ALLERGY STATUS TO OTHER ANTIBIOTIC AGENTS SNOMED Code(s): 704117644 (3) Fungal infection associated with peritoneal dialysis catheter Current Visit: Yes Status: Acute Code(s): GXZ2617 - SNOMED Code(s): 251631068 Plan: 1patient presented to the hospital with abdominal constipation in this patient who is end-stage renal disease on peritoneal dialysis with significant cloudy urine and outpatient peritoneal fluid culture growing yeast patient has not been on any antibiotics or antifungal in the outpatient setting except vancomycin and Fortaz that he received for this episode 2patient will need to have removal of this dialysis catheter in order to completely cure of this infection the same General Surgery has been consulted and the patient status post removal of the peritoneal dialysis catheter on 12/25/2024 3repeat peritoneal fluid cell count still elevated and culture have been p ositive for Sheela paraspilosis which is usually Diflucan sensitive pathogen however the patient did have worsening of the cell count and the peritoneal fluid despite being on Diflucan we will have the micro lab confirm sensitivity for the fluconazole 4for now I will discontinue Diflucan and start the patient on Eraxis while waiting for the sensitivity on the pathogen finalize at the bedside multiple question concern answered in layman term Dictation was produced using [employer] dictation software. please excuse any grammatical, word or spelling errors. Time with Patient: Less than 30
[2024-12-25] MEDS: SODIUM CHLORIDE 0.9% 1,000 ML IV SCH (15:40)
--- NOTE | 2024-12-25 15:49 | P.PN ---
Subjective Progress Note Date: 12/25/24 Patient seen as follow up for ESRD. Patient status post barium enema. States he has had multiple bowel movements. Cell count remains elevated Will proceed with removal of PD catheter Exam: Vital signs reviewed. GENERAL: Patient is awake oriented, comfortable in bed CARDIO: Regular rate rhythm. PULM: No audible rhonchi or wheezes. ABD: Diffuse tenderness to palpation, abdominal distension EXT: no edema present Objective - Vital Signs Vital signs: Vital Signs Temp 99.0 F 12/25/24 02:29 Pulse 65 12/25/24 02:29 Resp 16 12/25/24 02:29 BP 158/68 12/25/24 02:29 Pulse Ox 90 L 12/25/24 02:29 FiO2 Intake & Output 12/24/24 12/25/24 12/25/24 18:59 06:59 18:59 Intake Total 0 Output Total 480 Balance 0 -480 Intake: Oral 0 Output: Urine 480 Other: Voiding Method Urinal Urinal CAPD CAPD # Voids 1 1 - Labs CBC & Chem 7: 12/26/24 10:24 12/26/24 10:24 Labs: Abnormal Lab Results - Last 24 Hours (Table) 12/24/24 12/24/24 12/24/24 Range/Units 09:05 09:05 09:05 RBC 3.00 L (4.40-5.60) 10*6/uL Hgb 9.4 L D (13.0-17.0) g/dL Hct 27.6 L (39.6-50.0) % MPV 9.3 L (9.5-12.2) fL Immature Gran # 0.07 H (0.00-0.04) 10*3/uL Sodium 133 L (137-145) mmol/L Chloride 95 L (98-107) mmol/L BUN 35 H (9-20) mg/dL Creatinine 3.71 H (0.66-1.25) mg/dL Glucose 163 H (74-99) mg/dL POC Glucose (mg/dL) (70-110) mg/dL Hemoglobin A1c 7.1 H (<=6.0) % Fluid Appearance (Clear) 12/24/24 12/24/24 12/24/24 Range/Units 09:37 12:48 17:14 RBC (4.40-5.60) 10*6/uL Hgb (13.0-17.0) g/dL Hct (39.6-50.0) % MPV (9.5-12.2) fL Immature Gran # (0.00-0.04) 10*3/uL Sodium (137-145) mmol/L Chloride (98-107) mmol/L BUN (9-20) mg/dL Creatinine (0.66-1.25) mg/dL Glucose (74-99) mg/dL POC Glucose (mg/dL) 200 H 274 H (70-110) mg/dL Hemoglobin A1c (<=6.0) % Fluid Appearance Hazy A (Clear) 12/24/24 12/25/24 Range/Units 21:09 05:53 RBC (4.40-5.60) 10*6/uL Hgb (13.0-17.0) g/dL Hct (39.6-50.0) % MPV (9.5-12.2) fL Immature Gran # (0.00-0.04) 10*3/uL Sodium (137-145) mmol/L Chloride (98-107) mmol/L BUN (9-20) mg/dL Creatinine (0.66-1.25) mg/dL Glucose (74-99) mg/dL POC Glucose (mg/dL) 211 H 141 H (70-110) mg/dL Hemoglobin A1c (<=6.0) % Fluid Appearance (Clear) Microbiology - Last 24 Hours (Table) 12/22/24 19:59 Gram Stain - Preliminary Peritoneal Fluid Body Fluid Culture - Preliminary Assessment and Plan Assessment: ESRD receiving daily peritoneal dialysis, CT/abd pelvis showing no hydronephrosis Peritoneal dialysis peritonitis s/p vancomycin intraperitoneal on 12/20/2024 and maintained on daily ceftazidime. Constipation, CT abd/pelvis showing stool impaction, no signs of perforation. S/p barium enema w/gastrografin showing no obstruction. Chronic normocytic anemia Mild hyponatremia Insulin dependent Diabetes Mellitus Volume overloaded Hypertension, stable Plan: Proceed with removal of PD catheter as fluid culture is growing Sheela. Cell count remains elevated. Patient was switched to hemodialysis Patient is seen and examined. Agree with resident's findings, assessment and plan
[2024-12-25] MEDS: ANIDULAFUNGIN 200 MG in SODIUM CHLORIDE 0.9% 200 ML IVPB ONE (16:55)
--- NOTE | 2024-12-25 17:13 | P.GSCN ---
History of Present Illness History of present illness: 69-year-old gentleman history of chronic renal failure status on peritoneal dialysis which has been removed today consulted for placement of permanent dialysis catheter. Medical history history of chronic renal failure diabetes mellitus pretension Neck examination neck is supple no bruit Chest is clear good air entry both lung. Second sound present abdomen protuberant patient had a peritoneal dialysis catheter which was removed today Vascular brachial radial femoral pulses are present plan is placement of a dialysis catheter n.p.o. 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 History of Any Multi-Drug Resistant Organisms: None Reported, C-DIFF Year Discovered:: 06/04/23 MDRO Source:: stool Past Surgical History: Tonsillectomy Additional Past Surgical History / Comment(s): parathyroid removal 2017, bloodclot filter in groin 2013, bilateral catract surgery 04/2024 Past Anesthesia/Blood Transfusion Reactions: No Reported Reaction Additional Past Anesthesia/Blood Transfusion Reaction / Comm: claustraphobic has to be completely before placing mask on his face Smoking Status: Never smoker - Past Family History Father Family Medical History: Cancer Additional Family Medical History / Comment(s): skin Medications and Allergies Home Medications Medication Instructions Recorded Confirmed Type Aspirin EC [Ecotrin Low Dose] 81 mg PO DAILY 07/14/23 12/23/24 History Ezetimibe/Simvastatin 1 tab PO DAILY 07/14/23 12/23/24 History [Ezetimibe/Simvastatin 10-40 mg] Insulin Glargine,Hum.rec.anlog 40 units SQ BID 07/14/23 12/23/24 History [Lantus Solostar Pen] Isosorbide Mononitrate ER [Imdur] 60 mg PO DAILY 07/14/23 12/23/24 History carvediloL [Coreg] 25 mg PO BID 07/14/23 12/23/24 History cloNIDine HCL 0.2 mg PO TID 07/14/23 12/23/24 History hydrALAZINE HCL [Apresoline] 100 mg PO TID 07/14/23 12/23/24 History Famotidine [Pepcid] 20 mg PO DAILY #30 tab 07/18/23 12/23/24 Rx Folic Acid/Vit B Complex and C 0.8 mg PO DAILY 12/23/24 12/23/24 History [Purnima-Sb Tablet] Furosemide [Lasix] 40 mg PO DAILY 12/23/24 12/23/24 History HYDROcodone/APAP 7.5-325MG [[place] 1 tab PO Q8H PRN 12/23/24 12/23/24 History 7.5-325] Insulin Aspart [NovoLOG Flexpen] 10 - 25 units SQ AC-TID MDD 60 12/23/24 12/23/24 History units Lactulose [Cephulac] 20 gm PO TID PRN 12/23/24 12/23/24 History Potassium Chloride ER [K-Dur 10] 10 meq PO DAILY 12/23/24 12/23/24 History Semaglutide [Ozempic] 0.25 mg SQ FR 12/23/24 12/23/24 History Sodium Bicarbonate Tab 650 mg PO DAILY 12/23/24 12/23/24 History Spironolactone [Aldactone] 25 mg PO DAILY 12/23/24 12/23/24 History diphenhydrAMINE [Benadryl] 25 mg PO HS 12/23/24 12/23/24 History polyethylene glycoL 3350 [Miralax] 17 gm PO DAILY 12/23/24 12/23/24 History Allergies Allergy/AdvReac Type Severity Reaction Status Date / Time Penicillins Allergy Unknown Verified 12/23/24 10:39 Childhood Sulfa (Sulfonamide Allergy Rash/Hives Verified 12/23/24 10:39 Antibiotics) iv contrast AdvReac Unknown Uncoded 12/22/24 16:09 Surgical - Exam Vital Signs Temp Pulse Resp BP Pulse Ox 99.1 F 75 20 117/72 95 12/22/24 16:05 12/22/24 16:05 12/22/24 16:05 12/22/24 16:05 12/22/24 16:05 Results - Labs 12/24/24 09:05 12/24/24 09:05 Abnormal Lab Results - Last 24 Hours (Table) 12/24/24 12/24/24 12/25/24 Range/Units 17:14 21:09 05:53 POC Glucose (mg/dL) 274 H 211 H 141 H (70-110) mg/dL Microbiology - Last 24 Hours (Table) 12/22/24 19:59 Gram Stain - Preliminary Peritoneal Fluid Body Fluid Culture - Preliminary Sheela parapsilosis group
[2024-12-25 17:22] LABS: Glucose,Whole Blood 143 mg/dL (70-110)
[2024-12-25 19:54] LABS: Glucose,Whole Blood 245 mg/dL (70-110)
--- NOTE | 2024-12-25 22:29 | P.PN ---
Subjective Progress Note Date: 12/25/24 This is a pleasant 69-year-old male with medical history significant for end- stage renal disease maintained on peritoneal hemodialysis for the last year and a half, DVT, hypertension, hyperlipidemia, TBI, transverse myelitis, Factor V, diabetes mellitus. Patient comes into the hospital with come of complaints of abdominal pain and constipation. Last bowel movement was reportedly December 08 and has not been passing much gas. Denies any nausea, vomiting or diarrhea. Patient states he has had increasing abdominal pain. They have tried multiple laxatives and stool softeners without success. About [facility] abdomen pelvis that showed stool impaction although otherwise no abnormality. He has been getting his regular peritoneal dialysis treatment without issues. On Sunday she noticed a dark yellow color with the fluid being taken off during dialysis had improved some with antibiotics but is not clear as it usually is. He was given vancomycin and ceftazidime through the peritoneal dialysis at the nephrology office and his did it once at home. Because of the continued discoloration of the peritoneal fluid which was yellow in color with mucus per the , they were instructed to come to the ER. CT abdomen pelvis reveals no suspicious abnormality to account for the abdominal pain. Peritoneal dialysis catheter with right hemipelvis. White blood cell count 8.37, hemoglobin 11.2, sodium of 132 BUN of 38 creatinine of 3.56. Albumin 3.3. Urinalysis is not suggestive of infection. Patient is afebrile heart rate of 73 normal sinus rhythm blood pressure of 120/64 he is 94% on room air. On the ER patient received a dose of IV ceftazidime as well as IV morphine. He was started on his peritoneal dialysis which will be sent for culture. Nephrology is on consult, ID was consulted. General surgery consulted for the constipation. 12/24/2024 Patient is getting follow-up with medical floor. He is status post barium enema and has had 2 large bowel movements. He is currently undergoing a CAPD with peritoneal cultures currently pending at this time. He continues on a course of antibiotics with IV ceftazidime peritoneal dialysis. ID and nephrology are following closely. 12/25/2024 Patient is seen in follow-up today with at the bedside. Patient is currently n.p.o. and is scheduled with general surgery to have peritoneal dialysis catheter removed. Vascular surgery Dr. Snow will be consulted for temporary dialysis catheter placement as patient will be initiating hemodialysis with nephrology following closely. Patient is continued on Diflucan currently with infectious disease following although is being transitioned to Eraxis as preliminary culture showing Sheela parapsilosis and awaiting sensitivities. Unsure if plan is for continued IV antibiotics and/or antibiotics through dialysis. Case management/social work also to follow to arrange for discharge planning and hemodialysis outpatient. Family reports they will be able to take him to dialysis. Encouraged increase activity as tolerated and will follow-up on repeat labs. REVIEW OF SYSTEMS: CONSTITUTIONAL: No fever, no malaise, no fatigue. HEENT: No recent visual problems or hearing problems. Denied any sore throat. CARDIOVASCULAR: No chest pain, orthopnea, PND, no palpitations, no syncope. PULMONARY: No shortness of breath, no cough, no hemoptysis. GASTROINTESTINAL: No diarrhea, no nausea, no vomiting, Reports abdominal pain and reports to feeling hungry as he has been n.p.o. since midnight NEUROLOGICAL: No headaches, no weakness, no numbness. PHYSICAL EXAMINATION: GENERAL: The patient is alert and oriented x3, not in any acute distress. Well developed, well nourished. Elderly appearing, obese HEENT: Pupils are round and equally reacting to light. EOMI. No scleral icterus. No conjunctival pallor. Normocephalic, atraumatic. No pharyngeal erythema. No thyromegaly. CARDIOVASCULAR: S1 and S2 muffled PULMONARY: Diminished breath sounds bilaterally otherwise chest is clear to auscultation, no wheezing or crackles. ABDOMEN: Soft, obese, nontender, nondistended, Sluggish bowel sounds. No palpable organomegaly. MUSCULOSKELETAL: No joint swelling or deformity. EXTREMITIES: No cyanosis, clubbing, or pedal edema. NEUROLOGICAL: Gross neurological examination did not reveal any focal deficits. SKIN: No rashes. Assessment: Abdominal pain and constipation, improving End-stage renal disease maintained on peritoneal dialysis with concern for Bacterial peritonitis, status post peritoneal dialysis catheter removal with general surgery today 12/25/2024 Diabetes Mellitus type 2, uncontrolled with hyperglycemia Hypertension Hyperlipidemia DVT hx Factor V Leiden Transverse Myelitis Hx of TBI Parathyroidectomy 2018 Obesity with a BMI 36.6 DVT prophylaxis GI prophylaxis Full Code Plan: Awaiting finalized cultures from peritoneal dialysis as they are currently showing Sheela parapsilosis and will be transition to Eraxis with infectious disease following closely Nephrology on consult along with general surgery and patient is removing peritoneal dialysis catheter with general surgery today. Vascular surgery consulted for temporary dialysis catheter ID following awaiting finalized cultures and sensitivities to determine d ischarge antibiotics. Unsure if patient will require IV antibiotics or antibiotics through dialysis Obtain reports from Alivia Jarrell General surgery following and patient is status post barium enema Home medications have been reviewed and resumed Continue monitoring Accu-Cheks AC and at bedtime and will adjust insulins accordingly. Patient's blood sugars have been on the lower side this morning as patient was n.p.o. since midnight. Will adjust insulins as needed once diet has been resumed Monitor CBC, BMP and follow-up with repeat labs. Awaiting dialysis catheter placement as nephrology following and would like to initiate hemodialysis Case management/social work following arranging for outpatient hemodialysis Awaiting cultures to determine discharge treatment plan The impression and plan of care has been dictated by Basilia Hdez, Nurse Practitioner as directed. Dr. Mayra MD I have performed a history and physical examination and medical decision making of this patient, discussed the same with the dictator, and agree with the dictators assessment and plan as written, documented as a scribe. Based on total visit time, I have performed more than 50% of this visit. Objective - Vital Signs Vital signs: Vital Signs Temp 99.0 F 12/25/24 07:10 Pulse 55 L 12/25/24 07:10 Resp 16 12/25/24 07:10 BP 159/76 12/25/24 07:10 Pulse Ox 93 L 12/25/24 07:10 FiO2 Intake & Output 12/24/24 12/25/24 12/25/24 18:59 06:59 18:59 Intake Total 0 Output Total 480 Balance 0 -480 Intake: Oral 0 Output: Urine 480 Other: Voiding Method Urinal Urinal CAPD CAPD # Voids 1 1 - Labs CBC & Chem 7: 12/24/24 09:05 12/24/24 09:05 Labs: Abnormal Lab Results - Last 24 Hours (Table) 12/24/24 12/24/24 12/24/24 Range/Units 09:05 09:05 09:05 RBC 3.00 L (4.40-5.60) 10*6/uL Hgb 9.4 L D (13.0-17.0) g/dL Hct 27.6 L (39.6-50.0) % MPV 9.3 L (9.5-12.2) fL Immature Gran # 0.07 H (0.00-0.04) 10*3/uL Sodium 133 L (137-145) mmol/L Chloride 95 L (98-107) mmol/L BUN 35 H (9-20) mg/dL Creatinine 3.71 H (0.66-1.25) mg/dL Glucose 163 H (74-99) mg/dL POC Glucose (mg/dL) (70-110) mg/dL Hemoglobin A1c 7.1 H (<=6.0) % Fluid Appearance (Clear) 12/24/24 12/24/24 12/24/24 Range/Units 09:37 12:48 17:14 RBC (4.40-5.60) 10*6/uL Hgb (13.0-17.0) g/dL Hct (39.6-50.0) % MPV (9.5-12.2) fL Immature Gran # (0.00-0.04) 10*3/uL Sodium (137-145) mmol/L Chloride (98-107) mmol/L BUN (9-20) mg/dL Creatinine (0.66-1.25) mg/dL Glucose (74-99) mg/dL POC Glucose (mg/dL) 200 H 274 H (70-110) mg/dL Hemoglobin A1c (<=6.0) % Fluid Appearance Hazy A (Clear) 12/24/24 12/25/24 Range/Units 21:09 05:53 RBC (4.40-5.60) 10*6/uL Hgb (13.0-17.0) g/dL Hct (39.6-50.0) % MPV (9.5-12.2) fL Immature Gran # (0.00-0.04) 10*3/uL Sodium (137-145) mmol/L Chloride (98-107) mmol/L BUN (9-20) mg/dL Creatinine (0.66-1.25) mg/dL Glucose (74-99) mg/dL POC Glucose (mg/dL) 211 H 141 H (70-110) mg/dL Hemoglobin A1c (<=6.0) % Fluid Appearance (Clear) Microbiology - Last 24 Hours (Table) 12/22/24 19:59 Gram Stain - Preliminary Peritoneal Fluid Body Fluid Culture - Preliminary
[2024-12-26 05:58] LABS: Glucose,Whole Blood 123 mg/dL (70-110)
[2024-12-26] MEDS: LIDOCAINE 2% (PF) 20 MG/ML 5 ML VIAL SQ ONE (07:41)
[2024-12-26] MEDS: MIDAZOLAM 2 MG/2 ML VIAL IVP ONE ×3 (07:41→07:56)
[2024-12-26] MEDS: fentaNYL (PF) 50 MCG/1 ML VIAL IVP ONE ×2 (07:41→08:03)
[2024-12-26] MEDS: SODIUM CHLORIDE 0.9% 500 ML 500 ML IV ONE (08:16)
[2024-12-26] MEDS: HEPARIN SODIUM 1,000 UN/ML (10ML VL) MISCELLANE ONE (08:16)
[2024-12-26] MEDS: HEPARIN SODIUM,PORCINE 10,000 UNIT in SODIUM CHLORIDE 0.9% 1,000 ML IRRIGATION ONE (08:17)
--- NOTE | 2024-12-26 08:26 | P.GSCN ---
History of Present Illness History of present illness: Preo a regular guidewire which was parked at the p diagnosis acute chronic renal failure postop the same Patient brought to the Departmental Shipping Clerk the neck and chest was prepped and draped in Prestel sterile manner 1% lidocaine injection for the neck and chest area. Micropuncture introduced right jugular vein micropuncture guide was passed. 4 Nigerien sheath advanced up the guidewire. Then we created a tunnel for our 23 cm dialysis catheter to the neck incision site and then we passed the dilator advanced off of the guidewire process sheath on the top of the guidewire sheath we did not use dialysis catheter catheter superior vena cava atrial junction with heparin saline hep-locked 3-0 nylon dressing applied patient taught the procedure well 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 History of Any Multi-Drug Resistant Organisms: None Reported, C-DIFF Year Discovered:: 06/04/23 MDRO Source:: stool Past Surgical History: Tonsillectomy Additional Past Surgical History / Comment(s): parathyroid removal 2017, bloodclot filter in groin 2013, bilateral catract surgery 04/2024 Past Anesthesia/Blood Transfusion Reactions: No Reported Reaction Additional Past Anesthesia/Blood Transfusion Reaction / Comm: claustraphobic has to be completely before placing mask on his face Smoking Status: Never smoker - Past Family History Father Family Medical History: Cancer Additional Family Medical History / Comment(s): skin Medications and Allergies Home Medications Medication Instructions Recorded Confirmed Type Aspirin EC [Ecotrin Low Dose] 81 mg PO DAILY 07/14/23 12/23/24 History Ezetimibe/Simvastatin 1 tab PO DAILY 07/14/23 12/23/24 History [Ezetimibe/Simvastatin 10-40 mg] Insulin Glargine,Hum.rec.anlog 40 units SQ BID 07/14/23 12/23/24 History [Lantus Solostar Pen] Isosorbide Mononitrate ER [Imdur] 60 mg PO DAILY 07/14/23 12/23/24 History carvediloL [Coreg] 25 mg PO BID 07/14/23 12/23/24 History cloNIDine HCL 0.2 mg PO TID 07/14/23 12/23/24 History hydrALAZINE HCL [Apresoline] 100 mg PO TID 07/14/23 12/23/24 History Famotidine [Pepcid] 20 mg PO DAILY #30 tab 07/18/23 12/23/24 Rx Folic Acid/Vit B Complex and C 0.8 mg PO DAILY 12/23/24 12/23/24 History [Purnima-Sb Tablet] Furosemide [Lasix] 40 mg PO DAILY 12/23/24 12/23/24 History HYDROcodone/APAP 7.5-325MG [Page 1 tab PO Q8H PRN 12/23/24 12/23/24 History 7.5-325] Insulin Aspart [NovoLOG Flexpen] 10 - 25 units SQ AC-TID MDD 60 12/23/24 12/23/24 History units Lactulose [Cephulac] 20 gm PO TID PRN 12/23/24 12/23/24 History Potassium Chloride ER [K-Dur 10] 10 meq PO DAILY 12/23/24 12/23/24 History Semaglutide [Ozempic] 0.25 mg SQ FR 12/23/24 12/23/24 History Sodium Bicarbonate Tab 650 mg PO DAILY 12/23/24 12/23/24 History Spironolactone [Aldactone] 25 mg PO DAILY 12/23/24 12/23/24 History diphenhydrAMINE [Benadryl] 25 mg PO HS 12/23/24 12/23/24 History polyethylene glycoL 3350 [Miralax] 17 gm PO DAILY 12/23/24 12/23/24 History Allergies Allergy/AdvReac Type Severity Reaction Status Date / Time Penicillins Allergy Unknown Verified 12/23/24 10:39 Childhood Sulfa (Sulfonamide Allergy Rash/Hives Verified 12/23/24 10:39 Antibiotics) iv contrast AdvReac Unknown Uncoded 12/22/24 16:09 Surgical - Exam Vital Signs Temp Pulse Resp BP Pulse Ox 99.1 F 75 20 117/72 95 12/22/24 16:05 12/22/24 16:05 12/22/24 16:05 12/22/24 16:05 12/22/24 16:05 Results - Labs 12/24/24 09:05 12/24/24 09:05 Abnormal Lab Results - Last 24 Hours (Table) 12/25/24 12/25/24 12/26/24 Range/Units 17:19 19:51 05:54 POC Glucose (mg/dL) 143 H 245 H 123 H (70-110) mg/dL Microbiology - Last 24 Hours (Table) 12/22/24 19:59 Gram Stain - Preliminary Peritoneal Fluid Body Fluid Culture - Preliminary Sheela parapsilosis group
--- NOTE | 2024-12-26 08:31 | IR ---
EXAMINATION TYPE: IR cvc insert non tunneled DATE OF EXAM: 12/26/2024 FLUOROSCOPY hemodialysis catheter insertion, 0.9min fluoro, [id number] 78 images are provided. [facility], , 12/26/2024 8:29 AM
--- NOTE | 2024-12-26 10:22 | XR ---
EXAMINATION TYPE: XR chest 1V portable DATE OF EXAM: 12/26/2024 10:10 AM COMPARISON: 07/15/2023 CLINICAL INDICATION: Male, 69 years old with history of Hemodialysis catheter placement. R/o pneumo, , FINDINGS: Placement of right-sided double-lumen hemodialysis catheter. Attempts at the lower SVC. No appreciabl e pneumothorax. Heart mildly enlarged. There appears to be trace right pleural effusion. IMPRESSION: 1. Right-sided double-lumen hemodialysis catheter tips at the lower SVC. No appreciable pneumothorax. 2. Mild cardiomegaly and trace right pleural effusion. [facility], Workstation: [facility], 12/26/2024 10:20 AM
--- NOTE | 2024-12-26 10:38 | P.PN ---
Subjective Progress Note Date: 12/26/24 Patient seen as follow up for ESRD. No acute complaints. Patient making adequate urine. Patient status post PD catheter removal. Status post hemodialysis right jugular vein catheter by vascular surgery. Exam: Vital signs reviewed. GENERAL: Patient is awake oriented, comfortable in bed CARDIO: Regular rate rhythm. PULM: No audible rhonchi or wheezes. ABD: Diffuse tenderness to palpation, abdominal distension EXT: no edema present Objective - Vital Signs Vital signs: Vital Signs Temp 98.7 F 12/26/24 07:15 Pulse 70 12/26/24 07:15 Resp 16 12/26/24 07:15 BP 142/84 12/26/24 07:15 Pulse Ox 58 L 12/26/24 07:15 FiO2 Intake & Output 12/25/24 12/26/24 12/26/24 18:59 06:59 18:59 Intake Total 200 118 Output Total 5 Balance 195 118 Intake: IV 200 Oral 118 Output: Estimated Blood Loss 5 Other: Voiding Method Urinal # Voids 2 2 - Labs CBC & Chem 7: 12/28/24 05:58 12/28/24 05:58 Labs: Abnormal Lab Results - Last 24 Hours (Table) 12/25/24 12/25/24 12/26/24 Range/Units 17:19 19:51 05:54 POC Glucose (mg/dL) 143 H 245 H 123 H (70-110) mg/dL Microbiology - Last 24 Hours (Table) 12/22/24 19:59 Gram Stain - Preliminary Peritoneal Fluid Body Fluid Culture - Preliminary Sheela parapsilosis group Assessment and Plan Assessment: ESRD receiving daily peritoneal dialysis with complication due to positive Sheela paraspilosis, status post PD catheter removal. Status post right jugular vein hemodialysis catheter. CT/abd pelvis showing no hydronephrosis Peritoneal dialysis peritonitis s/p vancomycin intraperitoneal on 12/20/2024 and maintained on daily ceftazidime. Constipation, CT abd/pelvis showing stool impaction, no signs of perforation. S/p barium enema w/gastrografin showing no obstruction. Chronic normocytic anemia Mild hyponatremia Insulin dependent Diabetes Mellitus Volume overloaded Hypertension, stable Plan: S/p PD catheter removal. S/p HD right jugular vein catheter placement. Plan for hemodialysis today. Follow up BMP. Cultures showing Sheela paraspilosis, patient on Eraxis by ID. Pending sensitivities. Agree with resident's findings, assessment and plan.
[2024-12-26 12:45] LABS: Glucose,Whole Blood 284 mg/dL (70-110)
--- NOTE | 2024-12-26 14:44 | P.PN ---
Subjective Progress Note Date: 12/26/24 SURGICAL PROGRESS NOTE CHIEF COMPLAINT: Abdominal pain HISTORY OF PRESENT ILLNESS: Patient postop day #1 status post peritoneal dialysis catheter removal. Patient denies any abdominal pain. Denies any n ausea or vomiting. He had hemodialysis cath placed today by vascular surgery. Afebrile. PHYSICAL EXAM: VITAL SIGNS: Reviewed. GENERAL: Well-developed in no acute distress. ABDOMEN: Soft. Nondistended. Nontender. Dressing site clean dry and intact NEUROLOGIC: Alert and oriented. Cranial nerves II through XII grossly intact. ASSESSMENT: 1. Abdominal pain improved 2. Peritonitis with yeast growing in cultures status post removal of PD catheter 3. Constipation PLAN: - Continue antibiotics - Continue MiraLAX Physician [employer] Pipeline Supervisor note has been reviewed by physician. Signing provider agrees with the documented findings, assessment, and plan of care. I have personally seen and examined the patient, reviewed the MACHINE RUG CLEANER /PAs history, exam and MDM and agree with the assessment and plan as written. Based on total visit time, I have performed more than 50% of the visit. As above: Patient doing about the same. No nausea or vomiting. No further bowel function however. Incisions clean and dry, mild tenderness. Continue stool softeners. Objective - Vital Signs Vital signs: Vital Signs Temp 98.5 F 12/26/24 08:20 Pulse 65 12/26/24 10:20 Resp 16 12/26/24 08:20 BP 170/73 12/26/24 10:20 Pulse Ox 95 12/26/24 10:20 FiO2 Intake & Output 12/25/24 12/26/24 12/26/24 18:59 06:59 18:59 Intake Total 200 118 240 Output Total 5 800 Balance 195 118 -560 Intake: IV 200 Oral 118 240 Output: Urine 800 Estimated Blood Loss 5 Other: Voiding Method Urinal # Voids 2 2 - Labs CBC & Chem 7: 12/24/24 09:05 12/24/24 09:05 Labs: Abnormal Lab Results - Last 24 Hours (Table) 12/25/24 12/25/24 12/26/24 Range/Units 17:19 19:51 05:54 POC Glucose (mg/dL) 143 H 245 H 123 H (70-110) mg/dL 12/26/24 Range/Units 12:43 POC Glucose (mg/dL) 284 H (70-110) mg/dL
[2024-12-26 15:21] LABS: Basophils # (A) 0.07 X 10*3/uL (0.00-0.10); Basophils % (A) 0.8 %; Eosinophils # (A) 0.28 X 10*3/uL (0.04-0.35); Eosinophils % (A) 3.0 %; HCT 30.3 % (39.6-50.0); HGB 9.4 g/dL (13.0-17.0); Immature Grans, Automated 1.50 %; Lymphocytes # (A) 1.46 X 10*3/uL (0.90-5.00); Lymphocytes % (A) 15.8 %; MCH 29.9 pg (27.0-32.0); MCHC 31.0 g/dL (32.0-37.0); MCV 96.5 FL (80.0-97.0); Monocytes # (A) 0.82 X 10*3/uL (0.20-1.00); Monocytes % (A) 8.9 %; NRBC Per 100 WBC 0 X 10*3/uL (0.00-0.01); Neutrophils # (A) 6.45 X 10*3/uL (1.80-7.70); Neutrophils % (A) 70.0 %; Platelet Count 277 X 10*3/uL (140-440); RBC 3.14 X 10*6/uL (4.40-5.60); RDW 13.3 % (11.5-14.5); WBC 9.22 X 10*3/uL (4.50-10.00)
[2024-12-26 15:47] LABS: Anion Gap 11.30 mmol/L (4.00-12.00); BUN/Creat Ratio 8.36 Ratio (12.00-20.00); Blood Urea Nitrogen 32.6 mg/dL (9.0-27.0); Calcium 8.5 mg/dL (8.7-10.3); Carbon Dioxide 25.7 mmol/L (21.6-31.8); Chloride 100 mmol/L (96-109); Glucose 211 mg/dL (70-110); Magnesium 2.0 mg/dL (1.5-2.4); Potassium 4.3 mmol/L (3.5-5.5); Sodium 137 mmol/L (135-145)
[2024-12-26 17:13] LABS: Glucose,Whole Blood 158 mg/dL (70-110)
[2024-12-26] MEDS: ANIDULAFUNGIN 100 MG in SODIUM CHLORIDE 0.9% 100 ML IVPB SCH (17:33)
[2024-12-26] MEDS: LACTULOSE 20 GM/30 ML CUP PO SCH (17:34)
[2024-12-26 19:53] LABS: Glucose,Whole Blood 177 mg/dL (70-110)
[2024-12-26] MEDS: diphenhydrAMINE 50 MG/ML 1 ML VIAL IVP ONE (21:00)
[2024-12-26] MEDS: PANTOPRAZOLE 40 MG/10 ML VIAL IVP SCH (21:00)
[2024-12-26] MEDS: TRIMETHOBENZAMIDE 100 MG/ML 2 ML VIAL IM ONE (23:42)
--- NOTE | 2024-12-27 05:25 | P.PN ---
Subjective Progress Note Date: 12/26/24 This is a pleasant 69-year-old male with medical history significant for end- stage renal disease maintained on peritoneal hemodialysis for the last year and a half, DVT, hypertension, hyperlipidemia, TBI, transverse myelitis, Factor V, diabetes mellitus. Patient comes into the hospital with come of complaints of abdominal pain and constipation. Last bowel movement was reportedly December 08 and has not been passing much gas. Denies any nausea, vomiting or diarrhea. Patient states he has had increasing abdominal pain. They have tried multiple laxatives and stool softeners without success. [facility] abdomen pelvis that showed stool impaction although otherwise no abnormality. He has been getting his regular peritoneal dialysis treatment without issues. On Sunday she noticed a dark yellow color with the fluid being taken off during dialysis had improved some with antibiotics but is not clear as it usually is. He was given vancomycin and ceftazidime through the peritoneal dialysis at the nephrology office and his did it once at home. Because of the continued discoloration of the peritoneal fluid which was yellow in color with mucus per the , they were instructed to come to the ER. CT abdomen pelvis reveals no suspicious abnormality to account for the abdominal pain. Peritoneal dialysis catheter with right hemipelvis. White blood cell count 8.37, hemoglobin 11.2, sodium of 132 BUN of 38 creatinine of 3.56. Albumin 3.3. Urinalysis is not suggestive of infection. Patient is afebrile heart rate of 73 normal sinus rhythm blood pressure of 120/64 he is 94% on room air. On the ER patient received a dose of IV ceftazidime as well as IV morphine. He was started on his peritoneal dialysis which will be sent for culture. Nephrology is on consult, ID was consulted. General surgery consulted for the constipation. 12/24/2024 Patient is getting follow-up with medical floor. He is status post barium enema and has had 2 large bowel movements. He is currently undergoing a CAPD with peritoneal cultures currently pending at this time. He continues on a course of antibiotics with IV ceftazidime peritoneal dialysis. ID and nephrology are following closely. 12/25/2024 Patient is seen in follow-up today with at the bedside. Patient is currently n.p.o. and is scheduled with general surgery to have peritoneal dialysis catheter removed. Vascular surgery Dr. Snow will be consulted for temporary dialysis catheter placement as patient will be initiating hemodialysis with nephrology following closely. Patient is continued on Diflucan currently with infectious disease following although is being transitioned to Eraxis as preliminary culture showing Sheela parapsilosis and awaiting sensitivities. Unsure if plan is for continued IV antibiotics and/or antibiotics through dialysis. Case management/social work also to follow to arrange for discharge planning and hemodialysis outpatient. Family reports they will be able to take him to dialysis. Encouraged increase activity as tolerated and will follow-up on repeat labs. 12/26/2024 Patient is seen in follow-up with nephrology, vascular surgery, infectious dis ease following. Patient was seen and evaluated by Dr. Snow this morning and had a right chest wall dialysis catheter placed. Nephrology following and has ordered hemodialysis for today which is pending at this time. Patient is being followed by infectious disease awaiting finalized cultures to determine appropriate discharge antibiotics. Social work following arranging for outpatient hemodialysis. Will discuss further with infectious disease if patient will require IV antibiotics or have antibiotics with hemodialysis. REVIEW OF SYSTEMS: CONSTITUTIONAL: No fever, no malaise, no fatigue. HEENT: No recent visual problems or hearing problems. Denied any sore throat. CARDIOVASCULAR: No chest pain, orthopnea, PND, no palpitations, no syncope. PULMONARY: No shortness of breath, no cough, no hemoptysis. GASTROINTESTINAL: No diarrhea, no nausea, no vomiting, no diarrhea NEUROLOGICAL: No headaches, no weakness, no numbness. PHYSICAL EXAMINATION: GENERAL: The patient is alert and oriented x3, not in any acute distress. Well developed, well nourished. Elderly appearing, obese HEENT: Pupils are round and equally reacting to light. EOMI. No scleral icterus. No conjunctival pallor. Normocephalic, atraumatic. No pharyngeal erythema. No thyromegaly. CARDIOVASCULAR: S1 and S2 muffled, right chest wall surgical dressing is dry and intact with no active bleeding noted at this time PULMONARY: Diminished breath sounds bilaterally otherwise chest is clear to auscultation, no wheezing or crackles. ABDOMEN: Soft, obese, nontender, nondistended, Sluggish bowel sounds. No palpabl e organomegaly. MUSCULOSKELETAL: No joint swelling or deformity. EXTREMITIES: No cyanosis, clubbing, or pedal edema. NEUROLOGICAL: Gross neurological examination did not reveal any focal deficits. SKIN: No rashes. Assessment: Abdominal pain and constipation, improving End-stage renal disease maintained on peritoneal dialysis with concern for Bacterial peritonitis, status post peritoneal dialysis catheter removal with general surgery today 12/25/2024 Status post hemodialysis catheter on the right chest wall to initiate hemodialysis 12/26/2024 Diabetes Mellitus type 2, uncontrolled with hyperglycemia Hypertension Hyperlipidemia DVT hx Factor V Leiden Transverse Myelitis Hx of TBI Parathyroidectomy 2018 Obesity with a BMI 36.6 DVT prophylaxis GI prophylaxis Full Code Plan: Awaiting finalized cultures from peritoneal dialysis as they are currently showing Sheela parapsilosis and is continued on Eraxis with infectious disease following closely Nephrology following along with general surgery and patient had peritoneal dialysis catheter removed with general surgery. Vascular surgery Dr. Snow placed the hemodialysis catheter in the right chest wall today 12/26/2024 ID following awaiting finalized cultures and sensitivities to determine discharge antibiotics. Unsure if patient will require IV antibiotics or antibiotics through dialysis Obtain reports from Alivia Jarrell General surgery following and patient is status post barium enema, continue current bowel regimen and monitor closely for any further constipation Home medications have been reviewed and resumed Continue monitoring Accu-Cheks AC and at bedtime and will adjust insulins accordingly. Monitor CBC, BMP and follow-up with repeat labs. Case management/social work following arranging for outpatient hemodialysis Awaiting cultures to determine discharge treatment plan The impression and plan of care has been dictated by Basilia Hdez, Nurse Practitioner as directed. Dr. Mayra MD I have performed a history and physical examination and medical decision making of this patient, discussed the same with the dictator, and agree with the dictators assessment and plan as written, documented as a scribe. Based on total visit time, I have performed more than 50% of this visit. Objective - Vital Signs Vital signs: Vital Signs Temp 98.5 F 12/26/24 08:20 Pulse 61 12/26/24 09:20 Resp 16 12/26/24 08:20 BP 189/92 12/26/24 09:20 Pulse Ox 92 L 12/26/24 09:20 FiO2 Intake & Output 12/25/24 12/26/24 12/26/24 18:59 06:59 18:59 Intake Total 200 118 240 Output Total 5 Balance 195 118 240 Intake: IV 200 Oral 118 240 Output: Estimated Blood Loss 5 Other: Voiding Method Urinal # Voids 2 2 - Labs CBC & Chem 7: 12/26/24 10:24 12/26/24 10:24 Labs: Abnormal Lab Results - Last 24 Hours (Table) 12/25/24 12/25/24 12/26/24 Range/Units 17:19 19:51 05:54 POC Glucose (mg/dL) 143 H 245 H 123 H (70-110) mg/dL Microbiology - Last 24 Hours (Table) 12/22/24 19:59 Gram Stain - Preliminary Peritoneal Fluid Body Fluid Culture - Preliminary Sheela parapsilosis group
[2024-12-27 06:05] LABS: Glucose,Whole Blood 219 mg/dL (70-110)
[2024-12-27 08:22] LABS: Basophils # (A) 0.04 10*3/uL (0.00-0.10); Basophils % (A) 0.3 %; Eosinophils # (A) 0.01 10*3/uL (0.04-0.35); Eosinophils % (A) 0.1 %; HCT 34.1 % (39.6-50.0); HGB 10.9 g/dL (13.0-17.0); Lymphocytes # (A) 1.01 10*3/uL (0.90-5.00); Lymphocytes % (A) 7.6 %; MCH 29.7 pg (27.0-32.0); MCHC 32.0 g/dL (32.0-37.0); MCV 92.9 fL (80.0-97.0); Monocytes # (A) 0.51 10*3/uL (0.20-1.00); Monocytes % (A) 3.8 %; Neutrophils # (A) 11.49 10*3/uL (1.80-7.70); Neutrophils % (A) 86.5 %; Platelet Count 384 10*3/uL (140-440); RBC 3.67 10*6/uL (4.40-5.60); RDW 13.3 % (11.5-14.5); WBC 13.29 10*3/uL (4.50-10.00)
[2024-12-27 08:44] LABS: ALT 20 U/L (4-49); AST 28 U/L (17-59); African American GFR (CKD) 27 (>60 ml/min/1.73 sqM); Albumin 3.4 g/dL (3.5-5.0); Albumin/Globulin Ratio 1.1; Alkaline Phosphatase 90 U/L (38-126); Anion Gap 13 mmol/L; Blood Urea Nitrogen 22 mg/dL (9-20); Calcium 9.6 mg/dL (8.4-10.2); Carbon Dioxide 22 mmol/L (22-30); Chloride 101 mmol/L (98-107); Globulin 3.0 g/dL; Glucose 220 mg/dL (74-99); Magnesium 2.0 mg/dL (1.6-2.3); Non-African American GFR(CKD) 23 (>60 ml/min/1.73 sqM); Potassium 4.5 mmol/L (3.5-5.1); Sodium 136 mmol/L (137-145); Total Protein 6.4 g/dL (6.3-8.2)
--- NOTE | 2024-12-27 09:32 | P.PN ---
Subjective Progress Note Date: 12/27/24 Principal diagnosis: Peritonitis Patient started having nausea and vomiting yesterday evening after finishing dialysis. No significant abdominal pain. He is afebrile. White blood cell count 13. Objective - Vital Signs Vital signs: Vital Signs Temp 98.5 F 12/27/24 07:31 Pulse 77 12/27/24 07:31 Resp 18 12/27/24 07:31 BP 176/85 12/27/24 07:31 Pulse Ox 91 L 12/27/24 07:31 FiO2 Intake & Output 12/26/24 12/27/24 12/27/24 18:59 06:59 18:59 Intake Total 1230 Output Total 3200 Balance -1969 Intake: Oral 830 Hemodialysis 400 Output: Urine 800 Hemodialysis 1400 Hemodialysis Net Amount 1000 Other: Voiding Method Urinal # Voids 2 2 - Exam Abdomen: Soft, mild distention, mild incisional tenderness - Labs CBC & Chem 7: 12/27/24 07:48 12/27/24 07:48 Labs: Abnormal Lab Results - Last 24 Hours (Table) 12/26/24 12/26/24 12/26/24 Range/Units 10:24 10:24 12:43 WBC (4.50-10.00) 10*3/uL RBC 3.14 L (4.40-5.60) X 10*6/uL Hgb 9.4 L (13.0-17.0) g/dL Hct 30.3 L (39.6-50.0) % MCHC 31.0 L (32.0-37.0) g/dL MPV (9.5-12.2) fL Immature Gran # 0.14 H (0.00-0.04) X 10*3/uL Neutrophils # (1.80-7.70) 10*3/uL Eosinophils # (0.04-0.35) 10*3/uL Sodium (137-145) mmol/L BUN 32.6 H (9.0-27.0) mg/dL Creatinine 3.9 H (0.6-1.5) mg/dL Est GFR (CKD-EPI) 16 L (>=60) BUN/Creatinine Ratio 8.36 L (12.00-20.00) Ratio Glucose 211 H (70-110) mg/dL POC Glucose (mg/dL) 284 H (70-110) mg/dL Calcium 8.5 L (8.7-10.3) mg/dL Albumin (3.5-5.0) g/dL 12/26/24 12/26/24 12/27/24 Range/Units 17:12 19:51 06:03 WBC (4.50-10.00) 10*3/uL RBC (4.40-5.60) X 10*6/uL Hgb (13.0-17.0) g/dL Hct (39.6-50.0) % MCHC (32.0-37.0) g/dL MPV (9.5-12.2) fL Immature Gran # (0.00-0.04) X 10*3/uL Neutrophils # (1.80-7.70) 10*3/uL Eosinophils # (0.04-0.35) 10*3/uL Sodium (137-145) mmol/L BUN (9.0-27.0) mg/dL Creatinine (0.6-1.5) mg/dL Est GFR (CKD-EPI) (>=60) BUN/Creatinine Ratio (12.00-20.00) Ratio Glucose (70-110) mg/dL POC Glucose (mg/dL) 158 H 177 H 219 H (70-110) mg/dL Calcium (8.7-10.3) mg/dL Albumin (3.5-5.0) g/dL 12/27/24 12/27/24 Range/Units 07:48 07:48 WBC 13.29 H (4.50-10.00) 10*3/uL RBC 3.67 L (4.40-5.60) X 10*6/uL Hgb 10.9 L (13.0-17.0) g/dL Hct 34.1 L (39.6-50.0) % MCHC (32.0-37.0) g/dL MPV 8.9 L (9.5-12.2) fL Immature Gran # 0.23 H (0.00-0.04) X 10*3/uL Neutrophils # 11.49 H (1.80-7.70) 10*3/uL Eosinophils # 0.01 L (0.04-0.35) 10*3/uL Sodium 136 L (137-145) mmol/L BUN 22 H (9.0-27.0) mg/dL Creatinine 2.69 H (0.6-1.5) mg/dL Est GFR (CKD-EPI) (>=60) BUN/Creatinine Ratio (12.00-20.00) Ratio Glucose 220 H (70-110) mg/dL POC Glucose (mg/dL) (70-110) mg/dL Calcium (8.7-10.3) mg/dL Albumin 3.4 L (3.5-5.0) g/dL Microbiology - Last 24 Hours (Table) 12/25/24 15:00 Gram Stain - Preliminary Catheter Site Wound Culture - Preliminary Assessment and Plan (1) Peritonitis Narrative/Plan: 69-year-old male post PD catheter removal for fungal peritonitis. Cultures showing Sheela parapsilosis. Await final infectious disease recommendations. Today patient having episodes of nausea and vomiting. Keep n.p.o. Will check abdominal x-rays. May need to reinitiate IV hydration. Will defer to nephrology. Current Visit: Yes Status: Acute Code(s): K65.9 - PERITONITIS, UNSPECIFIED SNOMED Code(s): 44114121
--- NOTE | 2024-12-27 09:42 | P.PN ---
Subjective Progress Note Date: 12/26/24 Principal diagnosis: Reason for follow-up is PD catheter associated peritonitis Patient is a 69-year-old male with a past medical history significant for diabetes mellitus hypertension hyperlipidemia end-stage renal disease for the patient has been on peritoneal dialysis for more than a year has been diagnosed with PD catheter associated peritonitis with outpatient culture positive for Sheela probably this consultation. On today's evaluation that is 12/26/2024, the patient continues to be afebrile, the patient is on room air and breathing comfortably, the Pt denies having any chest pain or cough, the patient denies having any abdominal pain no vomiting or any diarrhea. Patient white count is down to 9.22 creatinine is 3.9 peritoneal fluid with Sheela parapsilosis Objective - Vital Signs Vital signs: Vital Signs Temp 98.5 F 12/26/24 08:20 Pulse 65 12/26/24 10:20 Resp 16 12/26/24 08:20 BP 170/73 12/26/24 10:20 Pulse Ox 95 12/26/24 10:20 FiO2 Intake & Output 12/25/24 12/26/24 12/26/24 18:59 06:59 18:59 Intake Total 200 118 240 Output Total 5 800 Balance 195 118 -560 Intake: IV 200 Oral 118 240 Output: Urine 800 Estimated Blood Loss 5 Other: Voiding Method Urinal # Voids 2 2 - Exam GENERAL DESCRIPTION: An elderly male lying in bed in no distress RESPIRATORY SYSTEM: Unlabored breathing , decreased breath sounds at bases HEART: S1 S2 regular rate and rhythm , ABDOMEN: Soft , mild distention and tenderness EXTREMITIES: No edema feet - Labs CBC & Chem 7: 12/27/24 07:48 12/27/24 07:48 Labs: Abnormal Lab Results - Last 24 Hours (Table) 12/25/24 12/25/24 12/26/24 Range/Units 17:19 19:51 05:54 POC Glucose (mg/dL) 143 H 245 H 123 H (70-110) mg/dL 12/26/24 Range/Units 12:43 POC Glucose (mg/dL) 284 H (70-110) mg/dL Assessment and Plan (1) Peritonitis Current Visit: Yes Status: Acute Code(s): K65.9 - PERITONITIS, UNSPECIFIED SNOMED Code(s): 05149708 (2) Allergy to multiple antibiotics Current Visit: Yes Status: Acute Code(s): Z88.1 - ALLERGY STATUS TO OTHER ANTIBIOTIC AGENTS SNOMED Code(s): 270921736 (3) Fungal infection associated with peritoneal dialysis catheter Current Visit: Yes Status: Acute Code(s): GIY8764 - SNOMED Code(s): 826273572 Plan: 1patient presented to the hospital with abdominal constipation in this patient who is end-stage renal disease on peritoneal dialysis with significant cloudy urine and outpatient peritoneal fluid culture growing yeast patient has not been on any antibiotics or antifungal in the outpatient setting except vancomycin and Fortaz that he received for this episode 2patient will need to have removal of this dialysis catheter in order to completely cure of this infection the same General Surgery has been consulted and the patient status post removal of the peritoneal dialysis catheter on 12/25/2024 3repeat peritoneal fluid cell count still elevated and culture have been positi ve for Sheela paraspilosis which is usually Diflucan sensitive pathogen however the patient did have worsening of the cell count and the peritoneal fluid despite being on Diflucan we will have the micro lab confirm sensitivity for the fluconazole 4patient is afebrile white count normal continue with Eraxis while waiting for the sensitivity as that we will determine his discharge antibiotics which can be either Diflucan or Eraxis this has been explained to the case mgr as well at the bedside multiple question concern answered in layman term Dictation was produced using [employer] dictation software. please excuse any grammatical, word or spelling errors. Time with Patient: Less than 30
[2024-12-27] MEDS ORDERED: MIDAZOLAM 2 MG/2 ML VIAL IV PRN (09:51)
[2024-12-27] MEDS ORDERED: LIDOCAINE 1% (10MG/ML) FOR IV START INTRADERMA PRN (09:51)
[2024-12-27] MEDS ORDERED: fentaNYL (PF) 50 MCG/ML 2 ML AMP IVP PRN (09:51)
[2024-12-27] MEDS ORDERED: HYDROmorphone 0.5 MG/0.5 ML SYRINGE IVP PRN (09:51)
--- NOTE | 2024-12-27 11:00 | XR ---
EXAMINATION TYPE: XR abdomen 2V DATE OF EXAM: 12/27/2024 10:33 AM COMPARISON: 12/23/2024 CLINICAL INDICATION: Male, 69 years old with history of Nausea vomiting; [facility] TECHNIQUE: Two views of the abdomen were obtained. FINDINGS: High density contrast is extending throughout the colon to the rectum. Large amount stool t hroughout the colon. The bowel gas pattern is nonspecific without dilated loops of small or large stephen wel. . Fecal material and gas are demonstrated throughout the colon and rectum. There is no evidence for organomegaly or pneumoperitoneum. No acute osseous process. No abnormal calcifications are pr esent. IVC filter present. IMPRESSION: No evidence of bowel obstruction. Large amount of stool throughout the colon. Stool does have high de nsity likely prior contrast from barium enema 12/23/2024. [facility], , 12/27/2024 10:58 AM
[2024-12-27 12:40] LABS: Glucose,Whole Blood 206 mg/dL (70-110)
--- NOTE | 2024-12-27 12:54 | P.PN ---
Subjective Patient seen as follow up for ESRD. Status post hemodialysis yesterday. Patient tolerated treatment well. Yesterday evening patient developed significant nausea and vomiting. His blood pressure was also elevated and he continued to have significant nausea throughout the night. Patient received antifungal medication around the same time and one of its major side effect is documented as nausea. X-ray from today she continues to show significant stool burden. Patient is scheduled for hemodialysis again today as he will be maintained on Sunday schedule. Objective - Vital Signs Vital signs: Vital Signs Temp 98.5 F 12/27/24 07:31 Pulse 85 12/27/24 10:33 Resp 18 12/27/24 07:31 BP 163/91 12/27/24 10:33 Pulse Ox 94 L 12/27/24 10:33 FiO2 Intake & Output 12/26/24 12/27/24 12/27/24 18:59 06:59 18:59 Intake Total 1230 Output Total 3200 200 Balance -1970 -200 Intake: Oral 830 Hemodialysis 400 Output: Urine 800 200 Hemodialysis 1400 Hemodialysis Net Amount 1000 Other: Voiding Method Urinal # Voids 2 2 - Exam patient is sleeping, arousable No acute distress Examination of the heart S1 and S2 Examination of the lungs bilateral breath sounds are heard Abdomen is soft nontender Examination of lower extremity shows no edema ICU CLERK exam grossly intact - Labs CBC & Chem 7: 12/27/24 07:48 12/27/24 07:48 Labs: Abnormal Lab Results - Last 24 Hours (Table) 12/26/24 12/26/24 12/26/24 Range/Units 10:24 10:24 17:12 WBC (4.50-10.00) 10*3/uL RBC 3.14 L (4.40-5.60) X 10*6/uL Hgb 9.4 L (13.0-17.0) g/dL Hct 30.3 L (39.6-50.0) % MCHC 31.0 L (32.0-37.0) g/dL MPV (9.5-12.2) fL Immature Gran # 0.14 H (0.00-0.04) X 10*3/uL Neutrophils # (1.80-7.70) 10*3/uL Eosinophils # (0.04-0.35) 10*3/uL Sodium (137-145) mmol/L BUN 32.6 H (9.0-27.0) mg/dL Creatinine 3.9 H (0.6-1.5) mg/dL Est GFR (CKD-EPI) 16 L (>=60) BUN/Creatinine Ratio 8.36 L (12.00-20.00) Ratio Glucose 211 H (70-110) mg/dL POC Glucose (mg/dL) 158 H (70-110) mg/dL Calcium 8.5 L (8.7-10.3) mg/dL Albumin (3.5-5.0) g/dL 12/26/24 12/27/24 12/27/24 Range/Units 19:51 06:03 07:48 WBC 13.29 H (4.50-10.00) 10*3/uL RBC 3.67 L (4.40-5.60) X 10*6/uL Hgb 10.9 L (13.0-17.0) g/dL Hct 34.1 L (39.6-50.0) % MCHC (32.0-37.0) g/dL MPV 8.9 L (9.5-12.2) fL Immature Gran # 0.23 H (0.00-0.04) X 10*3/uL Neutrophils # 11.49 H (1.80-7.70) 10*3/uL Eosinophils # 0.01 L (0.04-0.35) 10*3/uL Sodium (137-145) mmol/L BUN (9.0-27.0) mg/dL Creatinine (0.6-1.5) mg/dL Est GFR (CKD-EPI) (>=60) BUN/Creatinine Ratio (12.00-20.00) Ratio Glucose (70-110) mg/dL POC Glucose (mg/dL) 177 H 219 H (70-110) mg/dL Calcium (8.7-10.3) mg/dL Albumin (3.5-5.0) g/dL 12/27/24 12/27/24 Range/Units 07:48 12:38 WBC (4.50-10.00) 10*3/uL RBC (4.40-5.60) X 10*6/uL Hgb (13.0-17.0) g/dL Hct (39.6-50.0) % MCHC (32.0-37.0) g/dL MPV (9.5-12.2) fL Immature Gran # (0.00-0.04) X 10*3/uL Neutrophils # (1.80-7.70) 10*3/uL Eosinophils # (0.04-0.35) 10*3/uL Sodium 136 L (137-145) mmol/L BUN 22 H (9.0-27.0) mg/dL Creatinine 2.69 H (0.6-1.5) mg/dL Est GFR (CKD-EPI) (>=60) BUN/Creatinine Ratio (12.00-20.00) Ratio Glucose 220 H (70-110) mg/dL POC Glucose (mg/dL) 206 H (70-110) mg/dL Calcium (8.7-10.3) mg/dL Albumin 3.4 L (3.5-5.0) g/dL Microbiology - Last 24 Hours (Table) 12/25/24 15:00 Gram Stain - Preliminary Catheter Site Wound Culture - Preliminary Assessment and Plan Assessment: 1. End-stage renal disease onperitoneal dialysis, now switched to hemodialysisdue to fungal peritonitis. Status post first treatment of hemodialysis yesterday. 2. Fungal PD peritonitis maintained on anidulafungin. Status post removal of PD catheter on 12/25/2024 3. Severe constipation 4. Nausea and vomiting most likely associated with antifungal treatment 5. Hypertension, better controlled. Amlodipine will be added. No volume overload Plan: add amlodipine Repeat hemodialysis today with no significant UF Monitor for symptoms of nausea after today's dose off antifungal medication continue symptomatic treatment Continue treatment for constipation
[2024-12-27] MEDS: DEXAMETHASONE SOD PHOSPHATE 4 MG/ML 1 ML VIAL IV ONE (13:11)
[2024-12-27] MEDS: FAMOTIDINE 20 MG TAB PO SCH (13:12)
[2024-12-27] MEDS: LACTATED RINGERS 1,000 ML IV SCH (13:13)
[2024-12-27] MEDS: ONDANSETRON 4 MG/2 ML VIAL IVP ONE (13:22)
[2024-12-27] MEDS ORDERED: hydrALAZINE HCL 20 MG/ML 1 ML VIAL IVP PRN (14:56)
--- NOTE | 2024-12-27 15:37 | P.PN ---
Subjective Progress Note Date: 12/27/24 Principal diagnosis: Reason for follow-up is PD catheter associated peritonitis Patient is a 69-year-old male with a past medical history significant for diabetes mellitus hypertension hyperlipidemia end-stage renal disease for the patient has been on peritoneal dialysis for more than a year has been diagnosed with PD catheter associated peritonitis with outpatient culture positive for Sheela probably this consultation. On today's evaluation that is 12/28/2023, patient did have a temperature of 98.5 F this morning and denies having any chills, patient is on room air and breathing comfortably no chest pain or cough, the patient seem to have issues with the intractable nausea vomiting started last evening did have a brief overnight but started back around 5 in the morning as reported by the at the bedside. The patient white count is 13.29, creatinine is 2.69 Objective - Vital Signs Vital signs: Vital Signs Temp 98.5 F 12/27/24 07:31 Pulse 85 12/27/24 10:33 Resp 18 12/27/24 07:31 BP 163/91 12/27/24 10:33 Pulse Ox 94 L 12/27/24 10:33 FiO2 Intake & Output 12/26/24 12/27/24 12/27/24 18:59 06:59 18:59 Intake Total 1230 Output Total 3200 200 Balance -1970 - Intake: Oral 830 Hemodialysis 400 Output: Urine 800 200 Hemodialysis 1400 Hemodialysis Net Amount 1000 Other: Voiding Method Urinal # Voids 2 2 - Exam GENERAL DESCRIPTION: An elderly male lying in bed in no distress RESPIRATORY SYSTEM: Unlabored breathing , decreased breath sounds at bases HEART: S1 S2 regular rate and rhythm , ABDOMEN: Soft , mild distention and tenderness EXTREMITIES: No edema feet - Labs CBC & Chem 7: 12/27/24 07:48 12/27/24 07:48 Labs: Abnormal Lab Results - Last 24 Hours (Table) 12/26/24 12/26/24 12/26/24 Range/Units 10:24 10:24 12:43 WBC (4.50-10.00) 10*3/uL RBC 3.14 L (4.40-5.60) X 10*6/uL Hgb 9.4 L (13.0-17.0) g/dL Hct 30.3 L (39.6-50.0) % MCHC 31.0 L (32.0-37.0) g/dL MPV (9.5-12.2) fL Immature Gran # 0.14 H (0.00-0.04) X 10*3/uL Neutrophils # (1.80-7.70) 10*3/uL Eosinophils # (0.04-0.35) 10*3/uL Sodium (137-145) mmol/L BUN 32.6 H (9.0-27.0) mg/dL Creatinine 3.9 H (0.6-1.5) mg/dL Est GFR (CKD-EPI) 16 L (>=60) BUN/Creatinine Ratio 8.36 L (12.00-20.00) Ratio Glucose 211 H (70-110) mg/dL POC Glucose (mg/dL) 284 H (70-110) mg/dL Calcium 8.5 L (8.7-10.3) mg/dL Albumin (3.5-5.0) g/dL 12/26/24 12/26/24 12/27/24 Range/Units 17:12 19:51 06:03 WBC (4.50-10.00) 10*3/uL RBC (4.40-5.60) X 10*6/uL Hgb (13.0-17.0) g/dL Hct (39.6-50.0) % MCHC (32.0-37.0) g/dL MPV (9.5-12.2) fL Immature Gran # (0.00-0.04) X 10*3/uL Neutrophils # (1.80-7.70) 10*3/uL Eosinophils # (0.04-0.35) 10*3/uL Sodium (137-145) mmol/L BUN (9.0-27.0) mg/dL Creatinine (0.6-1.5) mg/dL Est GFR (CKD-EPI) (>=60) BUN/Creatinine Ratio (12.00-20.00) Ratio Glucose (70-110) mg/dL POC Glucose (mg/dL) 158 H 177 H 219 H (70-110) mg/dL Calcium (8.7-10.3) mg/dL Albumin (3.5-5.0) g/dL 12/27/24 12/27/24 Range/Units 07:48 07:48 WBC 13.29 H (4.50-10.00) 10*3/uL RBC 3.67 L (4.40-5.60) X 10*6/uL Hgb 10.9 L (13.0-17.0) g/dL Hct 34.1 L (39.6-50.0) % MCHC (32.0-37.0) g/dL MPV 8.9 L (9.5-12.2) fL Immature Gran # 0.23 H (0.00-0.04) X 10*3/uL Neutrophils # 11.49 H (1.80-7.70) 10*3/uL Eosinophils # 0.01 L (0.04-0.35) 10*3/uL Sodium 136 L (137-145) mmol/L BUN 22 H (9.0-27.0) mg/dL Creatinine 2.69 H (0.6-1.5) mg/dL Est GFR (CKD-EPI) (>=60) BUN/Creatinine Ratio (12.00-20.00) Ratio Glucose 220 H (70-110) mg/dL POC Glucose (mg/dL) (70-110) mg/dL Calcium (8.7-10.3) mg/dL Albumin 3.4 L (3.5-5.0) g/dL Microbiology - Last 24 Hours (Table) 12/25/24 15:00 Gram Stain - Preliminary Catheter Site Wound Culture - Preliminary Assessment and Plan (1) Peritonitis Current Visit: Yes Status: Acute Code(s): K65.9 - PERITONITIS, UNSPECIFIED SNOMED Code(s): 86447624 (2) Allergy to multiple antibiotics Current Visit: Yes Status: Acute Code(s): Z88.1 - ALLERGY STATUS TO OTHER ANTIBIOTIC AGENTS SNOMED Code(s): 599367090 (3) Fungal infection associated with peritoneal dialysis catheter Current Visit: Yes Status: Acute Code(s): AOT5961 - SNOMED Code(s): 507249710 Plan: 1patient presented to the hospital with abdominal constipation in this patient who is end-stage renal disease on peritoneal dialysis with significant cloudy urine and outpatient peritoneal fluid culture growing yeast patient has not been on any antibiotics or antifungal in the outpatient setting except vancomycin and Fortaz that he received for this episode 2patient will need to have removal of this dialysis catheter in order to completely cure of this infection the same General Surgery has been consulted and the patient status post removal of the peritoneal dialysis catheter on 12/25/2024 3repeat peritoneal fluid cell count still elevated and culture have been positive for Sheela paraspilosis which is usually Diflucan sensitive pathogen however the patient did have worsening of the cell count and the peritoneal fluid despite being on Diflucan we will have the micro lab confirm sensitivity for the fluconazole 4patient noticed to have significant nausea and vomiting more likely related to significant moderate stool burden in the colon and his nausea vomiting likely related to this instead of the Eraxis try to relieve his constipation and stool burden first before we blame his nausea vomiting on Eraxis at the bedside multiple question concern answered in layman term Dictation was produced using [employer] dictation software. please excuse any grammatical, word or spelling errors.
[2024-12-27] MEDS: amLODIPine 5 MG TAB PO SCH (15:47)
[2024-12-27] MEDS: METOCLOPRAMIDE 5 MG/ML 2 ML VIAL IVP SCH (16:03)
[2024-12-27 17:12] LABS: Glucose,Whole Blood 171 mg/dL (70-110)
--- NOTE | 2024-12-27 17:24 | PN ---
PROGRESS NOTE DATE OF SERVICE: 12/27/2024 SUBJECTIVE: This is a 69-year-old gentleman who was admitted with history of recent fungal peritonitis, also complaining of significant nausea at this time. Abdominal x-ray has been done, which I reviewed personally showed no evidence of any bowel obstruction. Large amount of stool was seen in the colon. Based on the pelvis CAT scan at the time of admission showed no acute abnormality. The cultures are showing Sheela parapsilosis. PAST MEDICAL HISTORY: Reviewed. REVIEW OF SYSTEMS: A 14-point review of systems negative except as mentioned earlier. CURRENT MEDICATIONS: Reviewed. PHYSICAL EXAMINATION: VITAL SIGNS: Pulse 79, blood pressure 160/80, and respirations 18. HEENT: Conjunctivae normal. NECK: No jugular venous distention. CARDIOVASCULAR: S1, S2. RESPIRATION: Breath sounds diminished at the bases. Few scattered rhonchi. ABDOMEN: Soft and obese. No guarding. No rigidity. No masses. LEGS: No edema. NERVOUS SYSTEM: Nonfocal. LABORATORY DATA: WBC 18.29. The rest of the labs are noted. ASSESSMENT: 1. Acute fungal peritonitis with Sheela parapsilosis. 2. End-stage renal disease, on hemodialysis. 3. Nausea possible acute gastritis. 4. Constipation. 5. Diabetes mellitus, type 2. 6. Volume overload. 7. Multiple complex medical issues. RECOMMENDATIONS AND DISCUSSION: Recommend to continue current management and continue symptomatic treatment. Otherwise at this time, I recommend to continue the antifungal agents, symptomatic treatment. See orders for details. P.r.n. hydralazine. Guarded prognosis. Further recommendations to follow. We will increase the dose of Coreg. MMODL / IJN: [id number] /
[2024-12-27 18:01] LABS: RSV Not Detected (Not Detectd)
[2024-12-27] MEDS: ALBUTEROL NEBULIZED 2.5 MG/3 ML INHALATION PRN (18:23)
[2024-12-27 20:02] LABS: Glucose,Whole Blood 168 mg/dL (70-110)
[2024-12-28 06:03] LABS: Glucose,Whole Blood 209 mg/dL (70-110)
--- NOTE | 2024-12-28 08:30 | P.PN ---
Subjective Progress Note Date: 12/28/24 Principal diagnosis: Peritonitis Patient feels better today. Less nauseated. Appetite improved. No good bowel function yet however. Yesterday's x-rays show persistent constipation. Fairly large volume of proximal stool within the colon. No fevers. White blood cell count 13.2 yesterday. Serology for viral illness negative. Objective - Vital Signs Vital signs: Vital Signs Temp 98.8 F 12/28/24 08:00 Pulse 84 12/28/24 08:00 Resp 18 12/28/24 08:00 BP 177/101 12/28/24 08:00 Pulse Ox 92 L 12/28/24 08:00 FiO2 Intake & Output 12/27/24 12/28/24 12/28/24 18:59 06:59 18:59 Intake Total 1000 Output Total 200 1000 Balance -200 0 Intake: Hemodialysis 1000 Output: Urine 200 Hemodialysis 500 Hemodialysis Net Amount 500 Other: # Voids 0 2 - Exam Abdomen: Soft, mild distention, mild tenderness, incisions clean and dry dressings removed - Labs CBC & Chem 7: 12/27/24 07:48 12/27/24 07:48 Labs: Abnormal Lab Results - Last 24 Hours (Table) 12/27/24 12/27/24 12/27/24 Range/Units 07:48 12:38 17:11 Sodium 136 L (137-145) mmol/L BUN 22 H (9-20) mg/dL Creatinine 2.69 H (0.66-1.25) mg/dL Glucose 220 H (74-99) mg/dL POC Glucose (mg/dL) 206 H 171 H (70-110) mg/dL Albumin 3.4 L (3.5-5.0) g/dL 12/27/24 12/28/24 Range/Units 20:00 06:01 Sodium (137-145) mmol/L BUN (9-20) mg/dL Creatinine (0.66-1.25) mg/dL Glucose (74-99) mg/dL POC Glucose (mg/dL) 168 H 209 H (70-110) mg/dL Albumin (3.5-5.0) g/dL Microbiology - Last 24 Hours (Table) 12/25/24 15:00 Anaerobic Culture - Preliminary Catheter Site 12/25/24 15:00 Gram Stain - Final Catheter Site Wound Culture - Final 12/22/24 19:59 Gram Stain - Final Peritoneal Fluid Body Fluid Culture - Final Sheela parapsilosis group Assessment and Plan (1) Peritonitis Narrative/Plan: Patient doing better today. Resume liquid diet. Add PEG solution for bowel catharsis. Ambulate. Current Visit: Yes Status: Acute Code(s): K65.9 - PERITONITIS, UNSPECIFIED SNOMED Code(s): 43401053
[2024-12-28 10:17] LABS: ALT 23 U/L (10-49); AST 29 U/L (14-35); Albumin 3.4 g/dL (3.8-4.9); Albumin/Globulin Ratio 1.21 Ratio (1.60-3.17); Alkaline Phosphatase 79 U/L (41-126); Anion Gap 16.40 mmol/L (4.00-12.00); BUN/Creat Ratio 8.13 Ratio (12.00-20.00); Blood Urea Nitrogen 24.4 mg/dL (9.0-27.0); Calcium 9.3 mg/dL (8.7-10.3); Carbon Dioxide 21.6 mmol/L (21.6-31.8); Chloride 99 mmol/L (96-109); Globulin 2.8 g/dL (1.6-3.3); Glucose 211 mg/dL (70-110); Potassium 4.3 mmol/L (3.5-5.5); Sodium 137 mmol/L (135-145); Total Protein 6.2 g/dL (6.2-8.2)
[2024-12-28 10:39] LABS: Basophils # (A) 0.04 X 10*3/uL (0.00-0.10); Basophils % (A) 0.2 %; Eosinophils # (A) 0 X 10*3/uL (0.04-0.35); Eosinophils % (A) 0 %; HCT 33.5 % (39.6-50.0); HGB 10.9 g/dL (13.0-17.0); Immature Grans, Automated 1.00 %; Lymphocytes # (A) 1.39 X 10*3/uL (0.90-5.00); Lymphocytes % (A) 8.3 %; MCH 29.9 pg (27.0-32.0); MCHC 32.5 g/dL (32.0-37.0); MCV 92.0 FL (80.0-97.0); Monocytes # (A) 1.29 X 10*3/uL (0.20-1.00); Monocytes % (A) 7.7 %; NRBC Per 100 WBC 0 X 10*3/uL (0.00-0.01); Neutrophils # (A) 13.83 X 10*3/uL (1.80-7.70); Neutrophils % (A) 82.8 %; Platelet Count 435 X 10*3/uL (140-440); RBC 3.64 X 10*6/uL (4.40-5.60); RDW 13.4 % (11.5-14.5); WBC 16.71 X 10*3/uL (4.50-10.00)
[2024-12-28] MEDS: PEG 3350 (236 GM/BTL) + LYTES 4,000 ML BOTTLE PO ONE (11:28)
[2024-12-28 12:35] LABS: Glucose,Whole Blood 217 mg/dL (70-110)
--- NOTE | 2024-12-28 13:04 | P.PN ---
Subjective Patient seen as follow up for ESRD. Admitted with PD peritonitis. Status post removal of PD catheter due to fungal peritonitis. Status post hemodialysis yesterday. Patient tolerated treatment well. Nausea has improved. Status post soapsuds enema for severe constipation Objective - Vital Signs Vital signs: Vital Signs Temp 98.8 F 12/28/24 08:00 Pulse 96 12/28/24 11:33 Resp 18 12/28/24 08:00 BP 149/94 12/28/24 11:33 Pulse Ox 92 L 12/28/24 08:00 FiO2 Intake & Output 12/27/24 12/28/24 12/28/24 18:59 06:59 18:59 Intake Total 1000 Output Total 200 1000 Balance -200 0 Intake: Hemodialysis 1000 Output: Urine 200 Hemodialysis 500 Hemodialysis Net Amount 500 Other: # Voids 0 2 - Exam patient is sleeping, arousable No acute distress Examination of the heart S1 and S2 Examination of the lungs bilateral breath sounds are heard Abdomen is soft nontender Examination of lower extremity shows no edema [employer] exam grossly intact - Labs CBC & Chem 7: 12/28/24 05:58 12/28/24 05:58 Labs: Abnormal Lab Results - Last 24 Hours (Table) 12/27/24 12/27/24 12/28/24 Range/Units 17:11 20:00 05:58 WBC 16.71 H (4.50-10.00) X 10*3/uL RBC 3.64 L (4.40-5.60) X 10*6/uL Hgb 10.9 L (13.0-17.0) g/dL Hct 33.5 L (39.6-50.0) % MPV 9.4 L (9.5-12.2) FL Immature Gran # 0.16 H (0.00-0.04) X 10*3/uL Neutrophils # 13.83 H (1.80-7.70) X 10*3/uL Monocytes # 1.29 H (0.20-1.00) X 10*3/uL Eosinophils # 0 L (0.04-0.35) X 10*3/uL Anion Gap (4.00-12.00) mmol/L Creatinine (0.6-1.5) mg/dL Est GFR (CKD-EPI) (>=60) BUN/Creatinine Ratio (12.00-20.00) Ratio Glucose (70-110) mg/dL POC Glucose (mg/dL) 171 H 168 H (70-110) mg/dL Albumin (3.8-4.9) g/dL Albumin/Globulin Ratio (1.60-3.17) Ratio 12/28/24 12/28/24 12/28/24 Range/Units 05:58 06:01 12:34 WBC (4.50-10.00) X 10*3/uL RBC (4.40-5.60) X 10*6/uL Hgb (13.0-17.0) g/dL Hct (39.6-50.0) % MPV (9.5-12.2) FL Immature Gran # (0.00-0.04) X 10*3/uL Neutrophils # (1.80-7.70) X 10*3/uL Monocytes # (0.20-1.00) X 10*3/uL Eosinophils # (0.04-0.35) X 10*3/uL Anion Gap 16.40 H (4.00-12.00) mmol/L Creatinine 3.0 H (0.6-1.5) mg/dL Est GFR (CKD-EPI) 22 L (>=60) BUN/Creatinine Ratio 8.13 L (12.00-20.00) Ratio Glucose 211 H (70-110) mg/dL POC Glucose (mg/dL) 209 H 217 H (70-110) mg/dL Albumin 3.4 L (3.8-4.9) g/dL Albumin/Globulin Ratio 1.21 L (1.60-3.17) Ratio Microbiology - Last 24 Hours (Table) 12/25/24 15:00 Anaerobic Culture - Preliminary Catheter Site 12/25/24 15:00 Gram Stain - Final Catheter Site Wound Culture - Final 12/22/24 19:59 Gram Stain - Final Peritoneal Fluid Body Fluid Culture - Final Sheela parapsilosis group Assessment and Plan Assessment: 1. End-stage renal disease on peritoneal dialysis, now switched to hemodialysis due to fungal peritonitis. Status post IJ permacath placement and hemodialysis x 2 2. Fungal PD peritonitis maintained on anidulafungin. Status post removal of PD catheter on 12/25/2024 3. Severe constipation 4. Nausea and vomiting most likely associated with antifungal treatment 5. Hypertension, better controlled. Amlodipine will be added. Plan: Check chest x-ray and possible hemodialysis tomorrow if pulmonary vascular congestion noted. Patient will be maintained on Sunday schedule. continue symptomatic treatment Continue treatment for constipation
--- NOTE | 2024-12-28 15:19 | XR ---
EXAMINATION TYPE: XR chest 1V DATE OF EXAM: 12/28/2024 2:49 PM COMPARISON: Chest radiographs from 12/26/2024 TECHNIQUE: XR chest 1V Portable AP radiograph of the chest. CLINICAL INDICATION:Male, 69 years old with history of CHF; FINDINGS: Lungs/Pleura: There is no evidence of pleural effusion, focal consolidation, or pneumothorax. Pulmonary vascularity: Unremarkable. Heart/mediastinum: Cardiomediastinal silhouette is mildly enlarged and stable. Musculoskeletal: No acute osseous pathology. Other findings: None Lines/Tubes: Stable right-sided double-lumen hemodialysis catheter with distal tip at the superior cavoatrial junc tion. IMPRESSION: 1. Mild cardiomegaly without pleural effusions or pulmonary vascular congestion to suggest CHF exace rbation/volume overload. 2. Stable position of hemodialysis catheter. [facility] Nohemi Kessler, , 12/28/2024 3:16 PM
[2024-12-28 17:19] LABS: Glucose,Whole Blood 181 mg/dL (70-110)
[2024-12-28 19:36] LABS: Glucose,Whole Blood 180 mg/dL (70-110)
--- NOTE | 2024-12-28 23:12 | PN ---
PROGRESS NOTE DATE OF SERVICE: 12/28/2024 This 69-year-old gentleman was admitted with abdominal pain, also had significant nausea and vomiting yesterday. The patient is slightly better today. The patient's CAT scan showed some constipation. The patient had features of fungal peritonitis with Sheela parapsilosis grown from the culture. The rest of the cultures are negative so far. PAST MEDICAL HISTORY: Reviewed. REVIEW OF SYSTEMS: 14-point review is negative. CURRENT MEDICATIONS: Reviewed. PHYSICAL EXAMINATION: VITAL SIGNS: Pulse 82, blood pressure 130/80, respirations 17. HEENT: Conjunctivae normal. CARDIOVASCULAR: S1, S2. RESPIRATION: Breath sounds diminished at the bases. Scattered rhonchi. ABDOMEN: Soft. NERVOUS SYSTEM: Nonfocal. LABORATORY DATA: WBC 16.71, which is actually worsening. Rest of the labs are noted. ASSESSMENT: 1. Acute fungal peritonitis with Sheela parapsilosis. 2. Nausea and vomiting, possibly acute gastritis. 3. Elevated WBC, increasing. 4. End-stage renal disease, on hemodialysis. 5. Constipation. 6. Diabetes mellitus, type 2. 7. Volume overload. 8. Multiple complex medical issues. RECOMMENDATIONS: Recommend to continue current management and continue symptomatic treatment. Otherwise, at this time repeat cultures. Continue with antifungal medications. Continue the rest of medications and symptomatic treatment. Prognosis is guarded because of multiple complex medical issues. Further recommendations to follow. Recommend the patient is currently on clear liquids and continue to monitor. Advance if the food is tolerated. Further recommendations to follow. MMODL / IJN: [id number] /
[2024-12-29 06:01] LABS: Glucose,Whole Blood 223 mg/dL (70-110)
[2024-12-29 07:53] LABS: Basophils # (A) 0.03 X 10*3/uL (0.00-0.10); Basophils % (A) 0.2 %; Eosinophils # (A) 0.02 X 10*3/uL (0.04-0.35); Eosinophils % (A) 0.1 %; HCT 33.1 % (39.6-50.0); HGB 10.9 g/dL (13.0-17.0); Immature Grans, Automated 1.40 %; Lymphocytes # (A) 1.42 X 10*3/uL (0.90-5.00); Lymphocytes % (A) 10.4 %; MCH 30.2 pg (27.0-32.0); MCHC 32.9 g/dL (32.0-37.0); MCV 91.7 FL (80.0-97.0); Monocytes # (A) 1.32 X 10*3/uL (0.20-1.00); Monocytes % (A) 9.6 %; NRBC Per 100 WBC 0 X 10*3/uL (0.00-0.01); Neutrophils # (A) 10.72 X 10*3/uL (1.80-7.70); Neutrophils % (A) 78.3 %; Platelet Count 394 X 10*3/uL (140-440); RBC 3.61 X 10*6/uL (4.40-5.60); RDW 13.5 % (11.5-14.5); WBC 13.70 X 10*3/uL (4.50-10.00)
[2024-12-29 08:01] LABS: Anion Gap 17.30 mmol/L (4.00-12.00); BUN/Creat Ratio 9.38 Ratio (12.00-20.00); Blood Urea Nitrogen 34.7 mg/dL (9.0-27.0); Calcium 8.9 mg/dL (8.7-10.3); Carbon Dioxide 22.7 mmol/L (21.6-31.8); Chloride 95 mmol/L (96-109); Glucose 214 mg/dL (70-110); Potassium 4.2 mmol/L (3.5-5.5); Sodium 135 mmol/L (135-145)
--- NOTE | 2024-12-29 09:36 | P.PN ---
Subjective Patient is seen in follow-up for end-stage renal disease. Transition from peritoneal to hemodialysis this admission. Denies chest pain or shortness of breath. Does make urine. Vital signs are stable. General: No acute distress. HEENT: Head exam is unremarkable. LUNGS: No audible rhonchi or wheezes. HEART: Rate and Rhythm are regular. ABDOMEN: Nontender. EXTREMITITES: No edema. Objective - Vital Signs Vital signs: Vital Signs Temp 98.7 F 12/29/24 06:47 Pulse 81 12/29/24 06:47 Resp 18 12/29/24 06:47 BP 136/87 12/29/24 06:47 Pulse Ox 94 L 12/29/24 06:47 FiO2 Intake & Output 12/28/24 12/29/24 12/29/24 18:59 06:59 18:59 Intake Total 1080 Balance 1080 Intake: Oral 1080 Other: # Voids 2 # Bowel Movements 3 2 - Labs CBC & Chem 7: 12/29/24 04:30 12/29/24 04:30 Labs: Abnormal Lab Results - Last 24 Hours (Table) 12/28/24 12/28/24 12/28/24 Range/Units 05:58 05:58 12:34 WBC 16.71 H (4.50-10.00) X 10*3/uL RBC 3.64 L (4.40-5.60) X 10*6/uL Hgb 10.9 L (13.0-17.0) g/dL Hct 33.5 L (39.6-50.0) % MPV 9.4 L (9.5-12.2) FL Immature Gran # 0.16 H (0.00-0.04) X 10*3/uL Neutrophils # 13.83 H (1.80-7.70) X 10*3/uL Monocytes # 1.29 H (0.20-1.00) X 10*3/uL Eosinophils # 0 L (0.04-0.35) X 10*3/uL Chloride (96-109) mmol/L Anion Gap 16.40 H (4.00-12.00) mmol/L BUN (9.0-27.0) mg/dL Creatinine 3.0 H (0.6-1.5) mg/dL Est GFR (CKD-EPI) 22 L (>=60) BUN/Creatinine Ratio 8.13 L (12.00-20.00) Ratio Glucose 211 H (70-110) mg/dL POC Glucose (mg/dL) 217 H (70-110) mg/dL Albumin 3.4 L (3.8-4.9) g/dL Albumin/Globulin Ratio 1.21 L (1.60-3.17) Ratio 12/28/24 12/28/24 12/29/24 Range/Units 17:18 19:33 04:30 WBC 13.70 H (4.50-10.00) X 10*3/uL RBC 3.61 L (4.40-5.60) X 10*6/uL Hgb 10.9 L (13.0-17.0) g/dL Hct 33.1 L (39.6-50.0) % MPV 9.1 L (9.5-12.2) FL Immature Gran # 0.19 H (0.00-0.04) X 10*3/uL Neutrophils # 10.72 H (1.80-7.70) X 10*3/uL Monocytes # 1.32 H (0.20-1.00) X 10*3/uL Eosinophils # 0.02 L (0.04-0.35) X 10*3/uL Chloride (96-109) mmol/L Anion Gap (4.00-12.00) mmol/L BUN (9.0-27.0) mg/dL Creatinine (0.6-1.5) mg/dL Est GFR (CKD-EPI) (>=60) BUN/Creatinine Ratio (12.00-20.00) Ratio Glucose (70-110) mg/dL POC Glucose (mg/dL) 181 H 180 H (70-110) mg/dL Albumin (3.8-4.9) g/dL Albumin/Globulin Ratio (1.60-3.17) Ratio 12/29/24 12/29/24 Range/Units 04:30 05:59 WBC (4.50-10.00) X 10*3/uL RBC (4.40-5.60) X 10*6/uL Hgb (13.0-17.0) g/dL Hct (39.6-50.0) % MPV (9.5-12.2) FL Immature Gran # (0.00-0.04) X 10*3/uL Neutrophils # (1.80-7.70) X 10*3/uL Monocytes # (0.20-1.00) X 10*3/uL Eosinophils # (0.04-0.35) X 10*3/uL Chloride 95 L (96-109) mmol/L Anion Gap 17.30 H (4.00-12.00) mmol/L BUN 34.7 H (9.0-27.0) mg/dL Creatinine 3.7 H (0.6-1.5) mg/dL Est GFR (CKD-EPI) 17 L (>=60) BUN/Creatinine Ratio 9.38 L (12.00-20.00) Ratio Glucose 214 H (70-110) mg/dL POC Glucose (mg/dL) 223 H (70-110) mg/dL Albumin (3.8-4.9) g/dL Albumin/Globulin Ratio (1.60-3.17) Ratio Microbiology - Last 24 Hours (Table) 12/27/24 15:17 Blood Culture - Preliminary Blood Assessment and Plan Plan: Assessment: 1. End-stage renal disease maintained on hemodialysis. 2. Fungal peritonitis. Status post removal of PD catheter. On antifungal. 3. Hypertension with chronic kidney disease. Stable. 4. Diabetes mellitus. 5. Volume overload. Plan: Showed hemodialysis treatment today mostly for ultrafiltration. Another treatment tomorrow. He will be maintained on Sunday schedule outpatient. Increase dose of Lasix to 80 mg.
[2024-12-29 12:08] LABS: Glucose,Whole Blood 220 mg/dL (70-110)
[2024-12-29 12:29] VITALS: BMI 36.6
--- NOTE | 2024-12-29 15:52 | P.PN ---
Subjective Progress Note Date: 12/29/24 Principal diagnosis: Peritonitis Patient mildly nauseated. No vomiting. Did have a few bowel movements yesterday with the enema. None today. Passing some flatus. Objective - Vital Signs Vital signs: Vital Signs Temp 98.7 F 12/29/24 14:10 Pulse 86 12/29/24 14:10 Resp 16 12/29/24 14:10 BP 143/79 12/29/24 14:10 Pulse Ox 96 12/29/24 14:10 FiO2 Intake & Output 12/28/24 12/29/24 12/29/24 18:59 06:59 18:59 Intake Total 1080 Balance 1080 Weight 112.491 kg Intake: Oral 1080 Other: Voiding Method Toilet Urinal # Voids 2 2 # Bowel Movements 3 2 0 - Exam Abdomen: Soft, mild distention, no appreciable tenderness, incision clean and dry - Labs CBC & Chem 7: 12/29/24 04:30 12/29/24 04:30 Labs: Abnormal Lab Results - Last 24 Hours (Table) 12/28/24 12/28/24 12/29/24 Range/Units 17:18 19:33 04:30 WBC 13.70 H (4.50-10.00) X 10*3/uL RBC 3.61 L (4.40-5.60) X 10*6/uL Hgb 10.9 L (13.0-17.0) g/dL Hct 33.1 L (39.6-50.0) % MPV 9.1 L (9.5-12.2) FL Immature Gran # 0.19 H (0.00-0.04) X 10*3/uL Neutrophils # 10.72 H (1.80-7.70) X 10*3/uL Monocytes # 1.32 H (0.20-1.00) X 10*3/uL Eosinophils # 0.02 L (0.04-0.35) X 10*3/uL Chloride (96-109) mmol/L Anion Gap (4.00-12.00) mmol/L BUN (9.0-27.0) mg/dL Creatinine (0.6-1.5) mg/dL Est GFR (CKD-EPI) (>=60) BUN/Creatinine Ratio (12.00-20.00) Ratio Glucose (70-110) mg/dL POC Glucose (mg/dL) 181 H 180 H (70-110) mg/dL 12/29/24 12/29/24 12/29/24 Range/Units 04:30 05:59 12:03 WBC (4.50-10.00) X 10*3/uL RBC (4.40-5.60) X 10*6/uL Hgb (13.0-17.0) g/dL Hct (39.6-50.0) % MPV (9.5-12.2) FL Immature Gran # (0.00-0.04) X 10*3/uL Neutrophils # (1.80-7.70) X 10*3/uL Monocytes # (0.20-1.00) X 10*3/uL Eosinophils # (0.04-0.35) X 10*3/uL Chloride 95 L (96-109) mmol/L Anion Gap 17.30 H (4.00-12.00) mmol/L BUN 34.7 H (9.0-27.0) mg/dL Creatinine 3.7 H (0.6-1.5) mg/dL Est GFR (CKD-EPI) 17 L (>=60) BUN/Creatinine Ratio 9.38 L (12.00-20.00) Ratio Glucose 214 H (70-110) mg/dL POC Glucose (mg/dL) 223 H 220 H (70-110) mg/dL Microbiology - Last 24 Hours (Table) 12/27/24 15:17 Blood Culture - Preliminary Blood Assessment and Plan (1) Peritonitis Narrative/Plan: 69-year-old male with ileus after recent fungal peritonitis. Continue antifungal medications. Await cultures. Continue liquid diet. Continue GoLytely for now. Current Visit: Yes Status: Acute Code(s): K65.9 - PERITONITIS, UNSPECIFIED SNOMED Code(s): 92374929
[2024-12-29 15:59] LABS: Hepatitis B Surface Antigen Nonreactive (Nonreactive)
--- NOTE | 2024-12-29 17:08 | P.PN ---
Subjective Progress Note Date: 12/28/24 Principal diagnosis: Reason for follow-up is PD catheter associated peritonitis Patient is a 69-year-old male with a past medical history significant for diabetes mellitus hypertension hyperlipidemia end-stage renal disease for the patient has been on peritoneal dialysis for more than a year has been diagnosed with PD catheter associated peritonitis with outpatient culture positive for Sheela probably this consultation. On today's evaluation that is 12/28/2024, Patient is afebrile patient is currently on room air and denies having any shortness of breath, the patient denies any chest pain or cough, the patient did have a significant bowel movement with resolution of his nausea and vomiting feeling better today. Patient white count is 16.71, creatinine 3.0 Objective - Vital Signs Vital signs: Vital Signs Temp 98.6 F 12/28/24 14:00 Pulse 82 12/28/24 14:00 Resp 17 12/28/24 14:00 BP 134/89 12/28/24 14:00 Pulse Ox 95 12/28/24 14:00 FiO2 Intake & Output 12/27/24 12/28/24 12/28/24 18:59 06:59 18:59 Intake Total 1000 Output Total 200 1000 Balance -200 0 Intake: Hemodialysis 1000 Output: Urine 200 Hemodialysis 500 Hemodialysis Net Amount 500 Other: # Voids 0 2 - Exam GENERAL DESCRIPTION: An elderly male lying in bed in no distress RESPIRATORY SYSTEM: Unlabored breathing , decreased breath sounds at bases HEART: S1 S2 regular rate and rhythm , ABDOMEN: Soft , mild distention and tenderness EXTREMITIES: No edema feet - Labs CBC & Chem 7: 12/29/24 04:30 12/29/24 04:30 Labs: Abnormal Lab Results - Last 24 Hours (Table) 12/27/24 12/27/24 12/28/24 Range/Units 17:11 20:00 05:58 WBC 16.71 H (4.50-10.00) X 10*3/uL RBC 3.64 L (4.40-5.60) X 10*6/uL Hgb 10.9 L (13.0-17.0) g/dL Hct 33.5 L (39.6-50.0) % MPV 9.4 L (9.5-12.2) FL Immature Gran # 0.16 H (0.00-0.04) X 10*3/uL Neutrophils # 13.83 H (1.80-7.70) X 10*3/uL Monocytes # 1.29 H (0.20-1.00) X 10*3/uL Eosinophils # 0 L (0.04-0.35) X 10*3/uL Anion Gap (4.00-12.00) mmol/L Creatinine (0.6-1.5) mg/dL Est GFR (CKD-EPI) (>=60) BUN/Creatinine Ratio (12.00-20.00) Ratio Glucose (70-110) mg/dL POC Glucose (mg/dL) 171 H 168 H (70-110) mg/dL Albumin (3.8-4.9) g/dL Albumin/Globulin Ratio (1.60-3.17) Ratio 12/28/24 12/28/24 12/28/24 Range/Units 05:58 06:01 12:34 WBC (4.50-10.00) X 10*3/uL RBC (4.40-5.60) X 10*6/uL Hgb (13.0-17.0) g/dL Hct (39.6-50.0) % MPV (9.5-12.2) FL Immature Gran # (0.00-0.04) X 10*3/uL Neutrophils # (1.80-7.70) X 10*3/uL Monocytes # (0.20-1.00) X 10*3/uL Eosinophils # (0.04-0.35) X 10*3/uL Anion Gap 16.40 H (4.00-12.00) mmol/L Creatinine 3.0 H (0.6-1.5) mg/dL Est GFR (CKD-EPI) 22 L (>=60) BUN/Creatinine Ratio 8.13 L (12.00-20.00) Ratio Glucose 211 H (70-110) mg/dL POC Glucose (mg/dL) 209 H 217 H (70-110) mg/dL Albumin 3.4 L (3.8-4.9) g/dL Albumin/Globulin Ratio 1.21 L (1.60-3.17) Ratio Microbiology - Last 24 Hours (Table) 12/25/24 15:00 Anaerobic Culture - Preliminary Catheter Site 12/25/24 15:00 Gram Stain - Final Catheter Site Wound Culture - Final 12/22/24 19:59 Gram Stain - Final Peritoneal Fluid Body Fluid Culture - Final Sheela parapsilosis group Assessment and Plan (1) Peritonitis Current Visit: Yes Status: Acute Code(s): K65.9 - PERITONITIS, UNSPECIFIED SNOMED Code(s): 57939997 (2) Allergy to multiple antibiotics Current Visit: Yes Status: Acute Code(s): Z88.1 - ALLERGY STATUS TO OTHER ANTIBIOTIC AGENTS SNOMED Code(s): 489693962 (3) Fungal infection associated with peritoneal dialysis catheter Current Visit: Yes Status: Acute Code(s): WWB6170 - SNOMED Code(s): 687103415 Plan: 1patient presented to the hospital with abdominal constipation in this patient who is end-stage renal disease on peritoneal dialysis with significant cloudy urine and outpatient peritoneal fluid culture growing yeast patient has not been on any antibiotics or antifungal in the outpatient setting except vancomycin and Fortaz that he received for this episode 2patient will need to have removal of this dialysis catheter in order to completely cure of this infection the same General Surgery has been consulted and the patient status post removal of the peritoneal dialysis catheter on 12/25/2024 3repeat peritoneal fluid cell count still elevated and culture have been positive for Sheela paraspilosis which is usually Diflucan sensitive pathogen however the patient did have worsening of the cell count and the peritoneal fluid despite being on Diflucan I did contacted micro lab to get sensitivity for the fluconazole on this pathogen 4patient did have resolution of his nausea and vomiting after resolution of his constipation likely Eraxis was not the result of his nausea and vomiting to continue at the bedside multiple question concern answered in layman term Dictation was produced using [employer] dictation software. please excuse any grammatical, word or spelling errors. Time with Patient: Less than 30
--- NOTE | 2024-12-29 17:09 | P.PN ---
Subjective Progress Note Date: 12/29/24 Principal diagnosis: Reason for follow-up is PD catheter associated peritonitis Patient is a 69-year-old male with a past medical history significant for diabetes mellitus hypertension hyperlipidemia end-stage renal disease for the patient has been on peritoneal dialysis for more than a year has been diagnosed with PD catheter associated peritonitis with outpatient culture positive for Sheela probably this consultation. On today's evaluation that is 12/29/2024, patient has been afebrile, patient is breathing comfortably and is currently on room air, patient denies having any chest pain and cough, patient denies nausea vomiting or diarrhea and no abdominal pain mention feeling better. Patient white count is down to 13.70, creatinine 3.7 blood cultures have been negative Objective - Vital Signs Vital signs: Vital Signs Temp 98.7 F 12/29/24 06:47 Pulse 81 12/29/24 06:47 Resp 18 12/29/24 06:47 BP 136/87 12/29/24 06:47 Pulse Ox 94 L 12/29/24 06:47 FiO2 Intake & Output 12/28/24 12/29/24 12/29/24 18:59 06:59 18:59 Intake Total 1080 Balance 1080 Intake: Oral 1080 Other: Voiding Method Toilet Urinal # Voids 2 # Bowel Movements 3 2 - Exam GENERAL DESCRIPTION: An elderly male lying in bed in no distress RESPIRATORY SYSTEM: Unlabored breathing , decreased breath sounds at bases HEART: S1 S2 regular rate and rhythm , ABDOMEN: Soft , mild distention and tenderness EXTREMITIES: No edema feet - Labs CBC & Chem 7: 12/29/24 04:30 12/29/24 04:30 Labs: Abnormal Lab Results - Last 24 Hours (Table) 12/28/24 12/28/24 12/28/24 Range/Units 12:34 17:18 19:33 WBC (4.50-10.00) X 10*3/uL RBC (4.40-5.60) X 10*6/uL Hgb (13.0-17.0) g/dL Hct (39.6-50.0) % MPV (9.5-12.2) FL Immature Gran # (0.00-0.04) X 10*3/uL Neutrophils # (1.80-7.70) X 10*3/uL Monocytes # (0.20-1.00) X 10*3/uL Eosinophils # (0.04-0.35) X 10*3/uL Chloride (96-109) mmol/L Anion Gap (4.00-12.00) mmol/L BUN (9.0-27.0) mg/dL Creatinine (0.6-1.5) mg/dL Est GFR (CKD-EPI) (>=60) BUN/Creatinine Ratio (12.00-20.00) Ratio Glucose (70-110) mg/dL POC Glucose (mg/dL) 217 H 181 H 180 H (70-110) mg/dL 12/29/24 12/29/24 12/29/24 Range/Units 04:30 04:30 05:59 WBC 13.70 H (4.50-10.00) X 10*3/uL RBC 3.61 L (4.40-5.60) X 10*6/uL Hgb 10.9 L (13.0-17.0) g/dL Hct 33.1 L (39.6-50.0) % MPV 9.1 L (9.5-12.2) FL Immature Gran # 0.19 H (0.00-0.04) X 10*3/uL Neutrophils # 10.72 H (1.80-7.70) X 10*3/uL Monocytes # 1.32 H (0.20-1.00) X 10*3/uL Eosinophils # 0.02 L (0.04-0.35) X 10*3/uL Chloride 95 L (96-109) mmol/L Anion Gap 17.30 H (4.00-12.00) mmol/L BUN 34.7 H (9.0-27.0) mg/dL Creatinine 3.7 H (0.6-1.5) mg/dL Est GFR (CKD-EPI) 17 L (>=60) BUN/Creatinine Ratio 9.38 L (12.00-20.00) Ratio Glucose 214 H (70-110) mg/dL POC Glucose (mg/dL) 223 H (70-110) mg/dL Microbiology - Last 24 Hours (Table) 12/27/24 15:17 Blood Culture - Preliminary Blood Assessment and Plan (1) Peritonitis Current Visit: Yes Status: Acute Code(s): K65.9 - PERITONITIS, UNSPECIFIED SNOMED Code(s): 15215244 (2) Allergy to multiple antibiotics Current Visit: Yes Status: Acute Code(s): Z88.1 - ALLERGY STATUS TO OTHER ANTIBIOTIC AGENTS SNOMED Code(s): 716758303 (3) Fungal infection associated with peritoneal dialysis catheter Current Visit: Yes Status: Acute Code(s): IQX7928 - SNOMED Code(s): 030249226 Plan: 1patient presented to the hospital with abdominal constipation in this patient who is end-stage renal disease on peritoneal dialysis with significant cloudy ur ine and outpatient peritoneal fluid culture growing yeast patient has not been on any antibiotics or antifungal in the outpatient setting except vancomycin and Fortaz that he received for this episode 2patient will need to have removal of this dialysis catheter in order to completely cure of this infection the same General Surgery has been consulted and the patient status post removal of the peritoneal dialysis catheter on 12/25/2024 3repeat peritoneal fluid cell count still elevated and culture have been positive for Sheela paraspilosis which is usually Diflucan sensitive pathogen however the patient did have worsening of the cell count and the peritoneal fluid despite being on Diflucan I did contacted micro lab to get sensitivity for the fluconazole on this pathogen 4patient currently be treated with Eraxis as we are still waiting for the sensitivity on this Sheela parapsilosis to determine his discharge antifungals discussed in detail with the SEED TRUCKER for admitting team was contacting the micro lab at the bedside multiple question concern answered in layman term Dictation was produced using [employer] dictation software. please excuse any grammatical, word or spelling errors. Time with Patient: Less than 30
[2024-12-29 17:29] LABS: Glucose,Whole Blood 175 mg/dL (70-110)
[2024-12-29 17:53] LABS: Hepatitis B Surface AB- Quant 133.0 mIU/mL
[2024-12-29 20:28] LABS: Glucose,Whole Blood 442 mg/dL (70-110)
--- NOTE | 2024-12-30 04:40 | P.PN ---
Subjective Progress Note Date: 12/29/24 This is a pleasant 69-year-old male with medical history significant for end- stage renal disease maintained on peritoneal hemodialysis for the last year and a half, DVT, hypertension, hyperlipidemia, TBI, transverse myelitis, Factor V, diabetes mellitus. Patient comes into the hospital with come of complaints of abdominal pain and constipation. Last bowel movement was reportedly December 08 and has not been passing much gas. Denies any nausea, vomiting or diarrhea. Patient states he has had increasing abdominal pain. They have tried multiple laxatives and stool softeners without success. [facility] abdomen pelvis that showed stool impaction although otherwise no abnormality. He has been getting his regular peritoneal dialysis treatment without issues. On Sunday she noticed a dark yellow color with the fluid being taken off during dialysis had improved some with antibiotics but is not clear as it usually is. He was given vancomycin and ceftazidime through the peritoneal dialysis at the nephrology office and his did it once at home. Because of the continued discoloration of the peritoneal fluid which was yellow in color with mucus per the , they were instructed to come to the ER. CT abdomen pelvis reveals no suspicious abnormality to account for the abdominal pain. Peritoneal dialysis catheter with right hemipelvis. White blood cell count 8.37, hemoglobin 11.2, sodium of 132 BUN of 38 creatinine of 3.56. Albumin 3.3. Urinalysis is not suggestive of infection. Patient is afebrile heart rate of 73 normal sinus rhythm blood pressure of 120/64 he is 94% on room air. On the ER patient received a dose of IV ceftazidime as well as IV morphine. He was started on his peritoneal dialysis which will be sent for culture. Nephrology is on consult, ID was consulted. General surgery consulted for the constipation. 12/24/2024 Patient is getting follow-up with medical floor. He is status post barium enema and has had 2 large bowel movements. He is currently undergoing a CAPD with peritoneal cultures currently pending at this time. He continues on a course of antibiotics with IV ceftazidime peritoneal dialysis. ID and nephrology are following closely. 12/25/2024 Patient is seen in follow-up today with at the bedside. Patient is currently n.p.o. and is scheduled with general surgery to have peritoneal dialysis catheter removed. Vascular surgery Dr. Snow will be consulted for temporary dialysis catheter placement as patient will be initiating hemodialysis with nephrology following closely. Patient is continued on Diflucan currently with infectious disease following although is being transitioned to Eraxis as preliminary culture showing Sheela parapsilosis and awaiting sensitivities. Unsure if plan is for continued IV antibiotics and/or antibiotics through dialysis. Case management/social work also to follow to arrange for discharge planning and hemodialysis outpatient. Family reports they will be able to take him to dialysis. Encouraged increase activity as tolerated and will follow-up on repeat labs. 12/26/2024 Patient is seen in follow-up with nephrology, vascular surgery, infectious dis ease following. Patient was seen and evaluated by Dr. Snow this morning and had a right chest wall dialysis catheter placed. Nephrology following and has ordered hemodialysis for today which is pending at this time. Patient is being followed by infectious disease awaiting finalized cultures to determine appropriate discharge antibiotics. Social work following arranging for outpatient hemodialysis. Will discuss further with infectious disease if patient will require IV antibiotics or have antibiotics with hemodialysis. 12/29/2024 Patient is seen in follow-up today being closely monitored with nephrology, general surgery, infectious disease following. Awaiting finalized sensitivities on Sheela species and was discussed with infectious disease previously regarding obtaining the sensitivities with micro lab. Micro lab contacted again and reported this was not sent out yet and is a send out and could take days to weeks to result. Micro lab reports they use [facility] for the sensitivity send outs and they do not receive results information. Phone number was provided to contact this lab for results. Awaiting the sensitivities to determine appropriate discharge antibiotics either oral or if patient requires IV. Patient does have a right temporary dialysis catheter placed on the chest wall and has been arranged for outpatient hemodialysis on Sunday//. Patient reports the nausea and vomiting is slightly improved although is continuing to require antinausea medication. Will continue current regimen and follow-up on repeat labs. White count is trending down and patient is afebrile. REVIEW OF SYSTEMS: CONSTITUTIONAL: No fever, no malaise, no fatigue. HEENT: No recent visual problems or hearing problems. Denied any sore throat. CARDIOVASCULAR: No chest pain, orthopnea, PND, no palpitations, no syncope. PULMONARY: No shortness of breath, no cough, no hemoptysis. GASTROINTESTINAL: No diarrhea, reports intermittent nausea, no further vomiting, no diarrhea NEUROLOGICAL: No headaches, reports of generalized weakness, no numbness. PHYSICAL EXAMINATION: GENERAL: The patient is alert and oriented x3, not in any acute distress. Well developed, well nourished. Elderly appearing, obese HEENT: Pupils are round and equally reacting to light. EOMI. No scleral icterus. No conjunctival pallor. Normocephalic, atraumatic. No pharyngeal erythema. No thyromegaly. CARDIOVASCULAR: S1 and S2 muffled, right chest wall surgical dressing is dry and intact with no active bleeding noted at this time PULMONARY: Diminished breath sounds bilaterally otherwise chest is clear to auscultation, no wheezing or crackles. ABDOMEN: Soft, obese, nontender, nondistended, Sluggish bowel sounds. No palpable organomegaly. MUSCULOSKELETAL: No joint swelling or deformity. EXTREMITIES: No cyanosis, clubbing, or pedal edema. NEUROLOGICAL: Gross neurological examination did not reveal any focal deficits. Diffusely weak SKIN: No rashes. Assessment: Abdominal pain and constipation, improving End-stage renal disease maintained on peritoneal dialysis with acute fungal peritonitis, status post peritoneal dialysis catheter removal with general surge ry 12/25/2024, culture showing Sheela parapsilosis and awaiting sensitivities Status post hemodialysis catheter on the right chest wall and has been started on hemodialysis 12/26/2024 Nausea, vomiting, possibly acute gastritis Leukocytosis, trending down Diabetes Mellitus type 2, uncontrolled with hyperglycemia Hypertension Hyperlipidemia DVT hx Factor V Leiden Transverse Myelitis Hx of TBI Parathyroidectomy 2018 Obesity with a BMI 36.6 DVT prophylaxis GI prophylaxis Full Code Plan: Awaiting finalized sensitivities from peritoneal dialysis as they are currently showing Sheela parapsilosis and is continued on Eraxis with infectious disease following closely. Awaiting sensitivities to determine discharge planning either IV therapy or oral. Discussed with micro lab and sensitivities have not been sent out yet but may be on second shift and may take days to weeks to resolve. Infectious disease made aware Nephrology following along with general surgery and patient had peritoneal di alysis catheter removed with general surgery. Vascular surgery Dr. Snow placed the hemodialysis catheter in the right chest wall 12/26/2024 ID following awaiting finalized sensitivities to determine discharge antibiotics. Unsure if patient will require IV antibiotics or oral antibiotics Obtain reports from Alivia Wyola General surgery following and patient is status post barium enema, continue current bowel regimen and monitor closely for any further constipation Patient was having some occasional nausea and vomiting and will continue supportive care, slowly advance diet as tolerated Home medications have been reviewed and resumed Continue monitoring Accu-Cheks AC and at bedtime and will adjust insulins accordingly. Monitor CBC, BMP and follow-up with repeat labs. Case management/social work following arranging for outpatient hemodialysis patient will be continued on Sunday//Sunday Awaiting culture sensitivities to determine discharge treatment plan The impression and plan of care has been dictated by Basilia Hdez, Nurse Practitioner as directed. Dr. Juan Francisco MD I have performed a history and physical examination and medical decision making of this patient, discussed the same with the dictator, and agree with the dictators assessment and plan as written, documented as a scribe. Based on total visit time, I have performed more than 50% of this visit. Objective - Vital Signs Vital signs: Vital Signs Temp 98.7 F 12/29/24 06:47 Pulse 81 12/29/24 06:47 Resp 18 12/29/24 06:47 BP 136/87 12/29/24 06:47 Pulse Ox 94 L 12/29/24 06:47 FiO2 Intake & Output 12/28/24 12/29/24 12/29/24 18:59 06:59 18:59 Intake Total 1080 Balance 1080 Weight 112.491 kg Intake: Oral 1080 Other: Voiding Method Toilet Urinal # Voids 2 # Bowel Movements 3 2 - Labs CBC & Chem 7: 12/29/24 04:30 12/29/24 04:30 Labs: Abnormal Lab Results - Last 24 Hours (Table) 12/28/24 12/28/24 12/29/24 Range/Units 17:18 19:33 04:30 WBC 13.70 H (4.50-10.00) X 10*3/uL RBC 3.61 L (4.40-5.60) X 10*6/uL Hgb 10.9 L (13.0-17.0) g/dL Hct 33.1 L (39.6-50.0) % MPV 9.1 L (9.5-12.2) FL Immature Gran # 0.19 H (0.00-0.04) X 10*3/uL Neutrophils # 10.72 H (1.80-7.70) X 10*3/uL Monocytes # 1.32 H (0.20-1.00) X 10*3/uL Eosinophils # 0.02 L (0.04-0.35) X 10*3/uL Chloride (96-109) mmol/L Anion Gap (4.00-12.00) mmol/L BUN (9.0-27.0) mg/dL Creatinine (0.6-1.5) mg/dL Est GFR (CKD-EPI) (>=60) BUN/Creatinine Ratio (12.00-20.00) Ratio Glucose (70-110) mg/dL POC Glucose (mg/dL) 181 H 180 H (70-110) mg/dL 12/29/24 12/29/24 12/29/24 Range/Units 04:30 05:59 12:03 WBC (4.50-10.00) X 10*3/uL RBC (4.40-5.60) X 10*6/uL Hgb (13.0-17.0) g/dL Hct (39.6-50.0) % MPV (9.5-12.2) FL Immature Gran # (0.00-0.04) X 10*3/uL Neutrophils # (1.80-7.70) X 10*3/uL Monocytes # (0.20-1.00) X 10*3/uL Eosinophils # (0.04-0.35) X 10*3/uL Chloride 95 L (96-109) mmol/L Anion Gap 17.30 H (4.00-12.00) mmol/L BUN 34.7 H (9.0-27.0) mg/dL Creatinine 3.7 H (0.6-1.5) mg/dL Est GFR (CKD-EPI) 17 L (>=60) BUN/Creatinine Ratio 9.38 L (12.00-20.00) Ratio Glucose 214 H (70-110) mg/dL POC Glucose (mg/dL) 223 H 220 H (70-110) mg/dL Microbiology - Last 24 Hours (Table) 12/27/24 15:17 Blood Culture - Preliminary Blood
[2024-12-30 05:47] LABS: Glucose,Whole Blood 103 mg/dL (70-110)
[2024-12-30 07:41] LABS: Basophils # (A) 0.06 X 10*3/uL (0.00-0.10); Basophils % (A) 0.5 %; Eosinophils # (A) 0.05 X 10*3/uL (0.04-0.35); Eosinophils % (A) 0.4 %; HCT 34.7 % (39.6-50.0); HGB 11.6 g/dL (13.0-17.0); Immature Grans, Automated 1.50 %; Lymphocytes # (A) 1.31 X 10*3/uL (0.90-5.00); Lymphocytes % (A) 10.8 %; MCH 30.2 pg (27.0-32.0); MCHC 33.4 g/dL (32.0-37.0); MCV 90.4 FL (80.0-97.0); Monocytes # (A) 1.04 X 10*3/uL (0.20-1.00); Monocytes % (A) 8.5 %; NRBC Per 100 WBC 0 X 10*3/uL (0.00-0.01); Neutrophils # (A) 9.53 X 10*3/uL (1.80-7.70); Neutrophils % (A) 78.3 %; Platelet Count 390 X 10*3/uL (140-440); RBC 3.84 X 10*6/uL (4.40-5.60); RDW 13.8 % (11.5-14.5); WBC 12.17 X 10*3/uL (4.50-10.00)
[2024-12-30 07:44] LABS: Magnesium 2.3 mg/dL (1.5-2.4)
[2024-12-30 07:56] LABS: ALT 19 U/L (10-49); AST 18 U/L (14-35); Albumin 3.4 g/dL (3.8-4.9); Albumin/Globulin Ratio 1.26 Ratio (1.60-3.17); Alkaline Phosphatase 74 U/L (41-126); Anion Gap 16.00 mmol/L (4.00-12.00); BUN/Creat Ratio 9.16 Ratio (12.00-20.00); Blood Urea Nitrogen 33.9 mg/dL (9.0-27.0); Calcium 9.0 mg/dL (8.7-10.3); Carbon Dioxide 24.0 mmol/L (21.6-31.8); Chloride 96 mmol/L (96-109); Globulin 2.7 g/dL (1.6-3.3); Glucose 112 mg/dL (70-110); Potassium 3.5 mmol/L (3.5-5.5); Sodium 136 mmol/L (135-145); Total Protein 6.1 g/dL (6.2-8.2)
--- NOTE | 2024-12-30 10:58 | P.PN ---
Subjective Patient is seen in follow-up for end-stage renal disease. Transitioned from peritoneal to hemodialysis this admission. Denies chest pain or shortness of breath. Does make urine. Vital signs are stable. General: No acute distress. HEENT: Head exam is unremarkable. LUNGS: No audible rhonchi or wheezes. HEART: Rate and Rhythm are regular. ABDOMEN: Nontender. EXTREMITITES: No edema. Objective - Vital Signs Vital signs: Vital Signs Temp 98.3 F 12/30/24 07:34 Pulse 63 12/30/24 07:34 Resp 18 12/30/24 07:34 BP 123/71 12/30/24 07:34 Pulse Ox 97 12/30/24 07:34 FiO2 Intake & Output 12/29/24 12/30/24 12/30/24 18:59 06:59 18:59 Intake Total 500 Output Total 4500 250 Balance -4000 -250 Weight 112.491 kg Intake: Hemodialysis 500 Output: Urine 250 Hemodialysis 2500 Hemodialysis Net Amount 2000 Other: Voiding Method Toilet Toilet Urinal Urinal # Voids 2 2 # Bowel Movements 0 - Labs CBC & Chem 7: 12/30/24 04:52 12/30/24 04:52 Labs: Abnormal Lab Results - Last 24 Hours (Table) 12/26/24 12/29/24 12/29/24 Range/Units 10:24 12:03 17:28 WBC (4.50-10.00) X 10*3/uL RBC (4.40-5.60) X 10*6/uL Hgb (13.0-17.0) g/dL Hct (39.6-50.0) % MPV (9.5-12.2) FL Immature Gran # (0.00-0.04) X 10*3/uL Neutrophils # (1.80-7.70) X 10*3/uL Monocytes # (0.20-1.00) X 10*3/uL Anion Gap (4.00-12.00) mmol/L BUN (9.0-27.0) mg/dL Creatinine (0.6-1.5) mg/dL Est GFR (CKD-EPI) (>=60) BUN/Creatinine Ratio (12.00-20.00) Ratio Glucose (70-110) mg/dL POC Glucose (mg/dL) 220 H 175 H (70-110) mg/dL Total Protein (6.2-8.2) g/dL Albumin (3.8-4.9) g/dL Albumin/Globulin Ratio (1.60-3.17) Ratio Hep Bs Antibody A (Negative) 12/29/24 12/30/24 12/30/24 Range/Units 20:25 04:52 04:52 WBC 12.17 H (4.50-10.00) X 10*3/uL RBC 3.84 L (4.40-5.60) X 10*6/uL Hgb 11.6 L (13.0-17.0) g/dL Hct 34.7 L (39.6-50.0) % MPV 9.1 L (9.5-12.2) FL Immature Gran # 0.18 H (0.00-0.04) X 10*3/uL Neutrophils # 9.53 H (1.80-7.70) X 10*3/uL Monocytes # 1.04 H (0.20-1.00) X 10*3/uL Anion Gap 16.00 H (4.00-12.00) mmol/L BUN 33.9 H (9.0-27.0) mg/dL Creatinine 3.7 H (0.6-1.5) mg/dL Est GFR (CKD-EPI) 17 L (>=60) BUN/Creatinine Ratio 9.16 L (12.00-20.00) Ratio Glucose 112 H (70-110) mg/dL POC Glucose (mg/dL) 442 H (70-110) mg/dL Total Protein 6.1 L (6.2-8.2) g/dL Albumin 3.4 L (3.8-4.9) g/dL Albumin/Globulin Ratio 1.26 L (1.60-3.17) Ratio Hep Bs Antibody (Negative) Microbiology - Last 24 Hours (Table) 12/27/24 15:17 Blood Culture - Preliminary Blood 12/25/24 15:00 Anaerobic Culture - Final Catheter Site Assessment and Plan Plan: Assessment: 1. End-stage renal disease maintained on hemodialysis. 2. Fungal peritonitis. Status post removal of PD catheter. On antifungal. 3. Hypertension with chronic kidney disease. Stable. 4. Diabetes mellitus. 5. Volume overload. Better with ultrafiltration. On room air. Plan: Hemodialysis today. He will be maintained on Sunday schedule outpatient. Maintain Lasix.
[2024-12-30 12:26] LABS: Glucose,Whole Blood 122 mg/dL (70-110)
--- NOTE | 2024-12-30 13:27 | P.PN ---
Subjective Progress Note Date: 12/30/24 SURGICAL PROGRESS NOTE CHIEF COMPLAINT: Abdominal pain HISTORY OF PRESENT ILLNESS: Patient status post peritoneal dialysis catheter removal. Patient getting hemodialysis this morning. He did drink some of the GoLytely bowel cleanse. He did have bowel movements yesterday. Denies any abdominal pain. Patient reports he is being discharged today. Afebrile. WBC is 13.7-12.1 PHYSICAL EXAM: VITAL SIGNS: Reviewed. GENERAL: Well-developed in no acute distress. ABDOMEN: Soft. Nondistended. Nontender. ASSESSMENT: 1. Ileus after recent fungal peritonitis PLAN: - Continue antifungal medication - Continue bowel regimen Physician Mainframe Developer note has been reviewed by physician. Signing provider agrees with the documented findings, assessment, and plan of care. I have personally seen and examined the patient, reviewed the EVENT COORDINATOR /PAs history, exam and MDM and agree with the assessment and plan as written. Based on total visit time, I have performed more than 50% of the visit. As above: Patient doing well today. Having bowel function. No nausea or vomiting. Plans are for probable discharge. Denies abdominal pain. Incision clean and dry. Will sign off. Please reconsult if needed. Objective - Vital Signs Vital signs: Vital Signs Temp 98.3 F 12/30/24 07:34 Pulse 63 12/30/24 07:34 Resp 18 12/30/24 07:34 BP 123/71 12/30/24 07:34 Pulse Ox 97 12/30/24 07:34 FiO2 Intake & Output 12/29/24 12/30/24 12/30/24 18:59 06:59 18:59 Intake Total 500 Output Total 4500 250 Balance -4000 -250 Weight 112.491 kg Intake: Hemodialysis 500 Output: Urine 250 Hemodialysis 2500 Hemodialysis Net Amount 2000 Other: Voiding Method Toilet Toilet Urinal Urinal # Voids 2 2 # Bowel Movements 0 - Labs CBC & Chem 7: 12/30/24 04:52 12/30/24 04:52 Labs: Abnormal Lab Results - Last 24 Hours (Table) 12/26/24 12/29/24 12/29/24 Range/Units 10:24 17:28 20:25 WBC (4.50-10.00) X 10*3/uL RBC (4.40-5.60) X 10*6/uL Hgb (13.0-17.0) g/dL Hct (39.6-50.0) % MPV (9.5-12.2) FL Immature Gran # (0.00-0.04) X 10*3/uL Neutrophils # (1.80-7.70) X 10*3/uL Monocytes # (0.20-1.00) X 10*3/uL Anion Gap (4.00-12.00) mmol/L BUN (9.0-27.0) mg/dL Creatinine (0.6-1.5) mg/dL Est GFR (CKD-EPI) (>=60) BUN/Creatinine Ratio (12.00-20.00) Ratio Glucose (70-110) mg/dL POC Glucose (mg/dL) 175 H 442 H (70-110) mg/dL Total Protein (6.2-8.2) g/dL Albumin (3.8-4.9) g/dL Albumin/Globulin Ratio (1.60-3.17) Ratio Hep Bs Antibody A (Negative) 12/30/24 12/30/24 12/30/24 Range/Units 04:52 04:52 12:24 WBC 12.17 H (4.50-10.00) X 10*3/uL RBC 3.84 L (4.40-5.60) X 10*6/uL Hgb 11.6 L (13.0-17.0) g/dL Hct 34.7 L (39.6-50.0) % MPV 9.1 L (9.5-12.2) FL Immature Gran # 0.18 H (0.00-0.04) X 10*3/uL Neutrophils # 9.53 H (1.80-7.70) X 10*3/uL Monocytes # 1.04 H (0.20-1.00) X 10*3/uL Anion Gap 16.00 H (4.00-12.00) mmol/L BUN 33.9 H (9.0-27.0) mg/dL Creatinine 3.7 H (0.6-1.5) mg/dL Est GFR (CKD-EPI) 17 L (>=60) BUN/Creatinine Ratio 9.16 L (12.00-20.00) Ratio Glucose 112 H (70-110) mg/dL POC Glucose (mg/dL) 122 H (70-110) mg/dL Total Protein 6.1 L (6.2-8.2) g/dL Albumin 3.4 L (3.8-4.9) g/dL Albumin/Globulin Ratio 1.26 L (1.60-3.17) Ratio Hep Bs Antibody (Negative) Microbiology - Last 24 Hours (Table) 12/27/24 15:17 Blood Culture - Preliminary Blood 12/25/24 15:00 Anaerobic Culture - Final Catheter Site
[2024-12-30] MEDS: FUROSEMIDE 80 MG TAB PO SCH (14:20)
--- NOTE | 2024-12-30 15:53 | P.PN ---
Subjective Progress Note Date: 12/30/24 Principal diagnosis: Reason for follow-up is PD catheter associated peritonitis Patient is a 69-year-old male with a past medical history significant for diabetes mellitus hypertension hyperlipidemia end-stage renal disease for the patient has been on peritoneal dialysis for more than a year has been diagnosed with PD catheter associated peritonitis with outpatient culture positive for Sheela probably this consultation. On today's evaluation that is 12/30/2024, Patient is afebrile this morning patient denies having any chest pain shortness of breath or cough, the patient is currently on room air, patient denies any abdominal pain no diarrhea no nausea no vomiting. Patient work on is 12.17, creatinine 3.7 still waiting for sensitivity on Sheela parapsilosis Objective - Vital Signs Vital signs: Vital Signs Temp 98.1 F 12/30/24 14:24 Pulse 68 12/30/24 14:24 Resp 18 12/30/24 14:24 BP 143/89 12/30/24 14:24 Pulse Ox 96 12/30/24 14:00 FiO2 Intake & Output 12/29/24 12/30/24 12/30/24 18:59 06:59 18:59 Intake Total 500 300 Output Total 4500 250 4300 Balance -4000 -250 -4000 Weight 112.491 kg Intake: Hemodialysis 500 300 Output: Urine 250 Hemodialysis 2500 2300 Hemodialysis Net Amount 1999 1999 Other: Voiding Method Toilet Toilet Urinal Urinal # Voids 2 2 # Bowel Movements 0 - Exam GENERAL DESCRIPTION: An elderly male lying in bed in no distress RESPIRATORY SYSTEM: Unlabored breathing , decreased breath sounds at bases HEART: S1 S2 regular rate and rhythm , ABDOMEN: Soft , mild distention and tenderness EXTREMITIES: No edema feet - Labs CBC & Chem 7: 12/30/24 04:52 12/30/24 04:52 Labs: Abnormal Lab Results - Last 24 Hours (Table) 12/26/24 12/29/24 12/29/24 Range/Units 10:24 17:28 20:25 WBC (4.50-10.00) X 10*3/uL RBC (4.40-5.60) X 10*6/uL Hgb (13.0-17.0) g/dL Hct (39.6-50.0) % MPV (9.5-12.2) FL Immature Gran # (0.00-0.04) X 10*3/uL Neutrophils # (1.80-7.70) X 10*3/uL Monocytes # (0.20-1.00) X 10*3/uL Anion Gap (4.00-12.00) mmol/L BUN (9.0-27.0) mg/dL Creatinine (0.6-1.5) mg/dL Est GFR (CKD-EPI) (>=60) BUN/Creatinine Ratio (12.00-20.00) Ratio Glucose (70-110) mg/dL POC Glucose (mg/dL) 175 H 442 H (70-110) mg/dL Total Protein (6.2-8.2) g/dL Albumin (3.8-4.9) g/dL Albumin/Globulin Ratio (1.60-3.17) Ratio Hep Bs Antibody A (Negative) 12/30/24 12/30/24 12/30/24 Range/Units 04:52 04:52 12:24 WBC 12.17 H (4.50-10.00) X 10*3/uL RBC 3.84 L (4.40-5.60) X 10*6/uL Hgb 11.6 L (13.0-17.0) g/dL Hct 34.7 L (39.6-50.0) % MPV 9.1 L (9.5-12.2) FL Immature Gran # 0.18 H (0.00-0.04) X 10*3/uL Neutrophils # 9.53 H (1.80-7.70) X 10*3/uL Monocytes # 1.04 H (0.20-1.00) X 10*3/uL Anion Gap 16.00 H (4.00-12.00) mmol/L BUN 33.9 H (9.0-27.0) mg/dL Creatinine 3.7 H (0.6-1.5) mg/dL Est GFR (CKD-EPI) 17 L (>=60) BUN/Creatinine Ratio 9.16 L (12.00-20.00) Ratio Glucose 112 H (70-110) mg/dL POC Glucose (mg/dL) 122 H (70-110) mg/dL Total Protein 6.1 L (6.2-8.2) g/dL Albumin 3.4 L (3.8-4.9) g/dL Albumin/Globulin Ratio 1.26 L (1.60-3.17) Ratio Hep Bs Antibody (Negative) Microbiology - Last 24 Hours (Table) 12/27/24 15:17 Blood Culture - Preliminary Blood 12/25/24 15:00 Anaerobic Culture - Final Catheter Site Assessment and Plan (1) Peritonitis Current Visit: Yes Status: Acute Code(s): K65.9 - PERITONITIS, UNSPECIFIED SNOMED Code(s): 96684251 (2) Allergy to multiple antibiotics Current Visit: Yes Status: Acute Code(s): Z88.1 - ALLERGY STATUS TO OTHER ANTIBIOTIC AGENTS SNOMED Code(s): 256782673 (3) Fungal infection associated with peritoneal dialysis catheter Current Visit: Yes Status: Acute Code(s): HKV7043 - SNOMED Code(s): 456597754 Plan: 1patient presented to the hospital with abdominal constipation in this patient who is end-stage renal disease on peritoneal dialysis with significant cloudy urine and outpatient peritoneal fluid culture growing yeast patient has not been on any antibiotics or antifungal in the outpatient setting except vancomycin and Fortaz that he received for this episode 2patient will need to have removal of this dialysis catheter in order to completely cure of this infection the same General Surgery has been consulted and the patient status post removal of the peritoneal dialysis catheter on 12/25/2024 3repeat peritoneal fluid cell count still elevated and culture have been positive for Sheela paraspilosis which is usually Diflucan sensitive pathogen however the patient did have worsening of the cell count and the peritoneal fluid despite being on Diflucan I did contacted micro lab to get sensitivity for the fluconazole on this pathogen 4patient currently be treated with Eraxis as we are still waiting for the sensitivity on this Sheela parapsilosis to determine his discharge antifungals, at the bedside seems to be upset with the delay but told do not have any other option Dictation was produced using [employer] software. please excuse any grammatical, word or spelling errors. Time with Patient: Less than 30
[2024-12-30 17:41] LABS: Glucose,Whole Blood 245 mg/dL (70-110)
[2024-12-30 20:27] LABS: Glucose,Whole Blood 251 mg/dL (70-110)
[2024-12-30 20:36] VITALS: RESP 16
[2024-12-31 01:31] LABS: Glucose,Whole Blood 285 mg/dL (70-110)
[2024-12-31 05:37] LABS: Glucose,Whole Blood 149 mg/dL (70-110)
[2024-12-31 08:22] VITALS: BP 117/70; PULSE 84; TEMP 97.8
[2024-12-31 08:30] LABS: Basophils # (A) 0.04 X 10*3/uL (0.00-0.10); Basophils % (A) 0.4 %; Eosinophils # (A) 0.14 X 10*3/uL (0.04-0.35); Eosinophils % (A) 1.3 %; HCT 34.2 % (39.6-50.0); HGB 11.2 g/dL (13.0-17.0); Immature Grans, Automated 1.90 %; Lymphocytes # (A) 1.37 X 10*3/uL (0.90-5.00); Lymphocytes % (A) 12.5 %; MCH 30.3 pg (27.0-32.0); MCHC 32.7 g/dL (32.0-37.0); MCV 92.4 FL (80.0-97.0); Monocytes # (A) 0.89 X 10*3/uL (0.20-1.00); Monocytes % (A) 8.1 %; NRBC Per 100 WBC 0 X 10*3/uL (0.00-0.01); Neutrophils # (A) 8.30 X 10*3/uL (1.80-7.70); Neutrophils % (A) 75.8 %; Platelet Count 294 X 10*3/uL (140-440); RBC 3.70 X 10*6/uL (4.40-5.60); RDW 13.9 % (11.5-14.5); WBC 10.95 X 10*3/uL (4.50-10.00)
[2024-12-31 08:58] LABS: Anion Gap 13.20 mmol/L (4.00-12.00); BUN/Creat Ratio 6.03 Ratio (12.00-20.00); Blood Urea Nitrogen 21.1 mg/dL (9.0-27.0); Calcium 8.4 mg/dL (8.7-10.3); Carbon Dioxide 22.8 mmol/L (21.6-31.8); Chloride 95 mmol/L (96-109); Glucose 175 mg/dL (70-110); Potassium 3.6 mmol/L (3.5-5.5); Sodium 131 mmol/L (135-145)
--- NOTE | 2024-12-31 10:12 | P.PN ---
Subjective Progress Note Date: 12/30/24 This is a pleasant 69-year-old male with medical history significant for end- stage renal disease maintained on peritoneal hemodialysis for the last year and a half, DVT, hypertension, hyperlipidemia, TBI, transverse myelitis, Factor V, diabetes mellitus. Patient comes into the hospital with come of complaints of abdominal pain and constipation. Last bowel movement was reportedly December 08 and has not been passing much gas. Denies any nausea, vomiting or diarrhea. Patient states he has had increasing abdominal pain. They have tried multiple laxatives and stool softeners without success. [facility] abdomen pelvis that showed stool impaction although otherwise no abnormality. He has been getting his regular peritoneal dialysis treatment without issues. On Sunday she noticed a dark yellow color with the fluid being taken off during dialysis had improved some with antibiotics but is not clear as it usually is. He was given vancomycin and ceftazidime through the peritoneal dialysis at the nephrology office and his did it once at home. Because of the continued discoloration of the peritoneal fluid which was yellow in color with mucus per the , they were instructed to come to the ER. CT abdomen pelvis reveals no suspicious abnormality to account for the abdominal pain. Peritoneal dialysis catheter with right hemipelvis. White blood cell count 8.37, hemoglobin 11.2, sodium of 132 BUN of 38 creatinine of 3.56. Albumin 3.3. Urinalysis is not suggestive of infection. Patient is afebrile heart rate of 73 normal sinus rhythm blood pressure of 120/64 he is 94% on room air. On the ER patient received a dose of IV ceftazidime as well as IV morphine. He was started on his peritoneal dialysis which will be sent for culture. Nephrology is on consult, ID was consulted. General surgery consulted for the constipation. 12/24/2024 Patient is getting follow-up with medical floor. He is status post barium enema and has had 2 large bowel movements. He is currently undergoing a CAPD with peritoneal cultures currently pending at this time. He continues on a course of antibiotics with IV ceftazidime peritoneal dialysis. ID and nephrology are following closely. 12/25/2024 Patient is seen in follow-up today with at the bedside. Patient is currently n.p.o. and is scheduled with general surgery to have peritoneal dialysis catheter removed. Vascular surgery Dr. Snow will be consulted for temporary dialysis catheter placement as patient will be initiating hemodialysis with nephrology following closely. Patient is continued on Diflucan currently with infectious disease following although is being transitioned to Eraxis as preliminary culture showing Sheela parapsilosis and awaiting sensitivities. Unsure if plan is for continued IV antibiotics and/or antibiotics through dialysis. Case management/social work also to follow to arrange for discharge planning and hemodialysis outpatient. Family reports they will be able to take him to dialysis. Encouraged increase activity as tolerated and will follow-up on repeat labs. 12/26/2024 Patient is seen in follow-up with nephrology, vascular surgery, infectious dis ease following. Patient was seen and evaluated by Dr. Snow this morning and had a right chest wall dialysis catheter placed. Nephrology following and has ordered hemodialysis for today which is pending at this time. Patient is being followed by infectious disease awaiting finalized cultures to determine appropriate discharge antibiotics. Social work following arranging for outpatient hemodialysis. Will discuss further with infectious disease if patient will require IV antibiotics or have antibiotics with hemodialysis. 12/29/2024 Patient is seen in follow-up today being closely monitored with nephrology, general surgery, infectious disease following. Awaiting finalized sensitivities on Sheela species and was discussed with infectious disease previously regarding obtaining the sensitivities with micro lab. Micro lab contacted again and reported this was not sent out yet and is a send out and could take days to weeks to result. Micro lab reports they use [facility] for the sensitivity send outs and they do not receive results information. Phone number was provided to contact this lab for results. Awaiting the sensitivities to determine appropriate discharge antibiotics either oral or if patient requires IV. Patient does have a right temporary dialysis catheter placed on the chest wall and has been arranged for outpatient hemodialysis on Sunday//. Patient reports the nausea and vomiting is slightly improved although is continuing to require antinausea medication. Will continue current regimen and follow-up on repeat labs. White count is trending down and patient is afebrile. 12/30/2024 Patient is seen in follow-up today reports his nausea and vomiting has improved and asking for an advancing diet. General surgery was following although signing off as they are planning no surgical intervention and to slowly advance diet as tolerated. Patient does have a dialysis catheter on the right chest wall and is scheduled for outpatient dialysis with social work on Sunday//Sunday. Continuing to await sensitivities and was supposed to be sent to [facility] for finalized sensitivity report and candidal species. Per ID, will await the sensitivities. Patient is maintained on Eraxis and will continue for now. Patient is afebrile and denies chest pain or shortness of breath. Patient with generalized weakness would recommend PT/OT therapy evaluation. Family at the bedside reports he will be going home on discharge. Slowly advance diet as tolerated and monitor for tolerance. REVIEW OF SYSTEMS: CONSTITUTIONAL: No fever, no malaise, no fatigue. HEENT: No recent visual problems or hearing problems. Denied any sore throat. CARDIOVASCULAR: No chest pain, orthopnea, PND, no palpitations, no syncope. PULMONARY: No shortness of breath, no cough, no hemoptysis. GASTROINTESTINAL: No diarrhea, reports intermittent nausea, no further vomiting, no diarrhea NEUROLOGICAL: No headaches, reports of generalized weakness, no numbness. PHYSICAL EXAMINATION: GENERAL: The patient is alert and oriented x3, not in any acute distress. Well developed, well nourished. Elderly appearing, obese HEENT: Pupils are round and equally reacting to light. EOMI. No scleral icterus. No conjunctival pallor. Normocephalic, atraumatic. No pharyngeal erythema. No thyromegaly. CARDIOVASCULAR: S1 and S2 muffled, right chest wall surgical dressing is dry and intact with no active bleeding noted at this time PULMONARY: Diminished breath sounds bilaterally otherwise chest is clear to auscultation, no wheezing or crackles. ABDOMEN: Soft, obese, nontender, nondistended, Sluggish bowel sounds. No palpable organomegaly. MUSCULOSKELETAL: No joint swelling or deformity. EXTREMITIES: No cyanosis, clubbing, or pedal edema. NEUROLOGICAL: Gross neurological examination did not reveal any focal deficits. Diffusely weak SKIN: No rashes. Assessment: Abdominal pain and constipation, improving End-stage renal disease maintained on peritoneal dialysis with acute fungal peritonitis, status post peritoneal dialysis catheter removal with general surgery 12/25/2024, culture showing Sheela parapsilosis and awaiting sensitivities Status post hemodialysis catheter on the right chest wall and has been started on hemodialysis 12/26/2024 Nausea, vomiting, possibly acute gastritis Leukocytosis, trending down Diabetes Mellitus type 2, uncontrolled with hyperglycemia Hypertension Hyperlipidemia DVT hx Factor V Leiden Transverse Myelitis Hx of TBI Parathyroidectomy 2018 Obesity with a BMI 36.6 DVT prophylaxis GI prophylaxis Full Code Plan: Awaiting finalized sensitivities from peritoneal dialysis as they are currently showing Sheela parapsilosis and is continued on Eraxis with infectious disease following closely. Awaiting sensitivities to determine discharge planning either IV therapy or oral. Discussed with micro lab and sensitivities have not been sent out yet but may be on second shift and may take days to weeks to resolve. Infectious disease made aware Nephrology following along with general surgery and patient had peritoneal dialysis catheter removed with general surgery. Vascular surgery Dr. Snow placed the hemodialysis catheter in the right chest wall 12/26/2024 ID following awaiting finalized sensitivities to determine discharge antibiotics. Unsure if patient will require IV antibiotics or oral antibiotics General surgery following and patient is status post barium enema, continue current bowel regimen and monitor closely for any further constipation. Surgery signing off with no further interventions planned Patient was having some occasional nausea and vomiting and will continue supportive care, slowly advance diet as tolerated, will add low fiber and monitor for tolerance. If having increased nausea and vomiting, recommend decreasing diet and/or n.p.o. Home medications have been reviewed and resumed Continue monitoring Accu-Cheks AC and at bedtime and will adjust insulins accordingly. Monitor CBC, BMP and follow-up with repeat labs. Case management/social work following arranging for outpatient hemodialysis patient will be continued on Sunday//Sunday Awaiting culture sensitivities to determine discharge treatment plan The impression and plan of care has been dictated by Basilia Hdez, Nurse Practitioner as directed. Dr. Juan Francisco MD I have performed a history and physical examination and medical decision making of this patient, discussed the same with the dictator, and agree with the dictators assessment and plan as written, documented as a scribe. Based on total visit time, I have performed more than 50% of this visit. Objective - Vital Signs Vital signs: Vital Signs Temp 97.8 F 12/31/24 07:43 Pulse 84 12/31/24 07:43 Resp 16 12/31/24 07:43 BP 117/70 12/31/24 07:43 Pulse Ox 96 12/31/24 07:43 FiO2 Intake & Output 12/30/24 12/31/24 12/31/24 18:59 06:59 18:59 Intake Total 300 180 0 Output Total 4300 Balance -4000 180 0 Intake: Oral 180 0 Hemodialysis 300 Output: Hemodialysis 2300 Hemodialysis Net Amount 2000 Other: Voiding Method Toilet Toilet Toilet Urinal Urinal Urinal # Voids 1 2 - Labs CBC & Chem 7: 12/31/24 04:30 12/31/24 04:30 Labs: Abnormal Lab Results - Last 24 Hours (Table) 12/30/24 12/30/24 12/30/24 Range/Units 12:24 17:40 20:25 WBC (4.50-10.00) X 10*3/uL RBC (4.40-5.60) X 10*6/uL Hgb (13.0-17.0) g/dL Hct (39.6-50.0) % MPV (9.5-12.2) FL Immature Gran # (0.00-0.04) X 10*3/uL Neutrophils # (1.80-7.70) X 10*3/uL Sodium (135-145) mmol/L Chloride (96-109) mmol/L Anion Gap (4.00-12.00) mmol/L Creatinine (0.6-1.5) mg/dL Est GFR (CKD-EPI) (>=60) BUN/Creatinine Ratio (12.00-20.00) Ratio Glucose (70-110) mg/dL POC Glucose (mg/dL) 122 H 245 H 251 H (70-110) mg/dL Calcium (8.7-10.3) mg/dL 12/31/24 12/31/24 12/31/24 Range/Units 01:29 04:30 04:30 WBC 10.95 H (4.50-10.00) X 10*3/uL RBC 3.70 L (4.40-5.60) X 10*6/uL Hgb 11.2 L (13.0-17.0) g/dL Hct 34.2 L (39.6-50.0) % MPV 9.2 L (9.5-12.2) FL Immature Gran # 0.21 H (0.00-0.04) X 10*3/uL Neutrophils # 8.30 H (1.80-7.70) X 10*3/uL Sodium 131 L (135-145) mmol/L Chloride 95 L (96-109) mmol/L Anion Gap 13.20 H (4.00-12.00) mmol/L Creatinine 3.5 H (0.6-1.5) mg/dL Est GFR (CKD-EPI) 18 L (>=60) BUN/Creatinine Ratio 6.03 L (12.00-20.00) Ratio Glucose 175 H (70-110) mg/dL POC Glucose (mg/dL) 285 H (70-110) mg/dL Calcium 8.4 L (8.7-10.3) mg/dL 12/31/24 Range/Units 05:36 WBC (4.50-10.00) X 10*3/uL RBC (4.40-5.60) X 10*6/uL Hgb (13.0-17.0) g/dL Hct (39.6-50.0) % MPV (9.5-12.2) FL Immature Gran # (0.00-0.04) X 10*3/uL Neutrophils # (1.80-7.70) X 10*3/uL Sodium (135-145) mmol/L Chloride (96-109) mmol/L Anion Gap (4.00-12.00) mmol/L Creatinine (0.6-1.5) mg/dL Est GFR (CKD-EPI) (>=60) BUN/Creatinine Ratio (12.00-20.00) Ratio Glucose (70-110) mg/dL POC Glucose (mg/dL) 149 H (70-110) mg/dL Calcium (8.7-10.3) mg/dL Microbiology - Last 24 Hours (Table) 12/27/24 15:17 Blood Culture - Preliminary Blood
--- NOTE | 2024-12-31 10:29 | P.PN ---
Subjective Patient is seen in follow-up for end-stage renal disease. Transitioned from peritoneal to hemodialysis this admission. Denies chest pain or shortness of breath. Does make urine. No problems with dialysis yesterday. Vital signs are stable. General: No acute distress. HEENT: Head exam is unremarkable. LUNGS: No audible rhonchi or wheezes. HEART: Rate and Rhythm are regular. ABDOMEN: Nontender. EXTREMITITES: No edema. Objective - Vital Signs Vital signs: Vital Signs Temp 97.8 F 12/31/24 07:43 Pulse 84 12/31/24 07:43 Resp 16 12/31/24 07:43 BP 117/70 12/31/24 07:43 Pulse Ox 96 12/31/24 07:43 FiO2 Intake & Output 12/30/24 12/31/24 12/31/24 18:59 06:59 18:59 Intake Total 300 180 0 Output Total 4300 Balance -4000 180 0 Intake: Oral 180 0 Hemodialysis 300 Output: Hemodialysis 2300 Hemodialysis Net Amount 2000 Other: Voiding Method Toilet Toilet Toilet Urinal Urinal Urinal # Voids 1 2 - Labs CBC & Chem 7: 12/31/24 04:30 12/31/24 04:30 Labs: Abnormal Lab Results - Last 24 Hours (Table) 12/30/24 12/30/24 12/30/24 Range/Units 12:24 17:40 20:25 WBC (4.50-10.00) X 10*3/uL RBC (4.40-5.60) X 10*6/uL Hgb (13.0-17.0) g/dL Hct (39.6-50.0) % MPV (9.5-12.2) FL Immature Gran # (0.00-0.04) X 10*3/uL Neutrophils # (1.80-7.70) X 10*3/uL Sodium (135-145) mmol/L Chloride (96-109) mmol/L Anion Gap (4.00-12.00) mmol/L Creatinine (0.6-1.5) mg/dL Est GFR (CKD-EPI) (>=60) BUN/Creatinine Ratio (12.00-20.00) Ratio Glucose (70-110) mg/dL POC Glucose (mg/dL) 122 H 245 H 251 H (70-110) mg/dL Calcium (8.7-10.3) mg/dL 12/31/24 12/31/24 12/31/24 Range/Units 01:29 04:30 04:30 WBC 10.95 H (4.50-10.00) X 10*3/uL RBC 3.70 L (4.40-5.60) X 10*6/uL Hgb 11.2 L (13.0-17.0) g/dL Hct 34.2 L (39.6-50.0) % MPV 9.2 L (9.5-12.2) FL Immature Gran # 0.21 H (0.00-0.04) X 10*3/uL Neutrophils # 8.30 H (1.80-7.70) X 10*3/uL Sodium 131 L (135-145) mmol/L Chloride 95 L (96-109) mmol/L Anion Gap 13.20 H (4.00-12.00) mmol/L Creatinine 3.5 H (0.6-1.5) mg/dL Est GFR (CKD-EPI) 18 L (>=60) BUN/Creatinine Ratio 6.03 L (12.00-20.00) Ratio Glucose 175 H (70-110) mg/dL POC Glucose (mg/dL) 285 H (70-110) mg/dL Calcium 8.4 L (8.7-10.3) mg/dL 12/31/24 Range/Units 05:36 WBC (4.50-10.00) X 10*3/uL RBC (4.40-5.60) X 10*6/uL Hgb (13.0-17.0) g/dL Hct (39.6-50.0) % MPV (9.5-12.2) FL Immature Gran # (0.00-0.04) X 10*3/uL Neutrophils # (1.80-7.70) X 10*3/uL Sodium (135-145) mmol/L Chloride (96-109) mmol/L Anion Gap (4.00-12.00) mmol/L Creatinine (0.6-1.5) mg/dL Est GFR (CKD-EPI) (>=60) BUN/Creatinine Ratio (12.00-20.00) Ratio Glucose (70-110) mg/dL POC Glucose (mg/dL) 149 H (70-110) mg/dL Calcium (8.7-10.3) mg/dL Microbiology - Last 24 Hours (Table) 12/27/24 15:17 Blood Culture - Preliminary Blood Assessment and Plan Plan: Assessment: 1. End-stage renal disease maintained on hemodialysis. 2. Fungal peritonitis. Status post removal of PD catheter. On antifungal. 3. Hypertension with chronic kidney disease. Stable. 4. Diabetes mellitus. 5. Volume overload. Better with ultrafiltration. On room air. Plan: Hemodialysis tomorrow. He will be maintained on Sunday schedule outpatient. Maintain Lasix.
[2024-12-31 12:14] LABS: Glucose,Whole Blood 233 mg/dL (70-110)
--- NOTE | 2024-12-31 14:29 | P.PN ---
Subjective Progress Note Date: 12/31/24 Principal diagnosis: Reason for follow-up is PD catheter associated peritonitis Patient is a 69-year-old male with a past medical history significant for diabetes mellitus hypertension hyperlipidemia end-stage renal disease for the patient has been on peritoneal dialysis for more than a year has been diagnosed with PD catheter associated peritonitis with outpatient culture positive for Sheela probably this consultation. On today's evaluation that is 12/31/2024,the patient denies any fever or any chills, patient is breathing comfortably on room air, the patient denies chest pain shortness of breath and no significant cough, patient denies abdominal pain, no nausea vomiting or diarrhea. Patient is feeling better wants to go home. Patient white count is down to 10.95 creatinine is 3.5 sensitivities still pending Objective - Vital Signs Vital signs: Vital Signs Temp 97.8 F 12/31/24 07:43 Pulse 84 12/31/24 07:43 Resp 16 12/31/24 07:43 BP 117/70 12/31/24 07:43 Pulse Ox 96 12/31/24 07:43 FiO2 Intake & Output 12/30/24 12/31/24 12/31/24 18:59 06:59 18:59 Intake Total 300 180 0 Output Total 4300 Balance -4000 180 0 Weight 112.491 kg Intake: Oral 180 0 Hemodialysis 300 Output: Hemodialysis 2300 Hemodialysis Net Amount 2000 Other: Voiding Method Toilet Toilet Toilet Urinal Urinal Urinal # Voids 1 2 - Exam GENERAL DESCRIPTION: An elderly male lying in bed in no distress RESPIRATORY SYSTEM: Unlabored breathing , decreased breath sounds at bases HEART: S1 S2 regular rate and rhythm , ABDOMEN: Soft , mild distention and tenderness EXTREMITIES: No edema feet - Labs CBC & Chem 7: 12/31/24 04:30 12/31/24 04:30 Labs: Abnormal Lab Results - Last 24 Hours (Table) 12/30/24 12/30/24 12/31/24 Range/Units 17:40 20:25 01:29 WBC (4.50-10.00) X 10*3/uL RBC (4.40-5.60) X 10*6/uL Hgb (13.0-17.0) g/dL Hct (39.6-50.0) % MPV (9.5-12.2) FL Immature Gran # (0.00-0.04) X 10*3/uL Neutrophils # (1.80-7.70) X 10*3/uL Sodium (135-145) mmol/L Chloride (96-109) mmol/L Anion Gap (4.00-12.00) mmol/L Creatinine (0.6-1.5) mg/dL Est GFR (CKD-EPI) (>=60) BUN/Creatinine Ratio (12.00-20.00) Ratio Glucose (70-110) mg/dL POC Glucose (mg/dL) 245 H 251 H 285 H (70-110) mg/dL Calcium (8.7-10.3) mg/dL 12/31/24 12/31/24 12/31/24 Range/Units 04:30 04:30 05:36 WBC 10.95 H (4.50-10.00) X 10*3/uL RBC 3.70 L (4.40-5.60) X 10*6/uL Hgb 11.2 L (13.0-17.0) g/dL Hct 34.2 L (39.6-50.0) % MPV 9.2 L (9.5-12.2) FL Immature Gran # 0.21 H (0.00-0.04) X 10*3/uL Neutrophils # 8.30 H (1.80-7.70) X 10*3/uL Sodium 131 L (135-145) mmol/L Chloride 95 L (96-109) mmol/L Anion Gap 13.20 H (4.00-12.00) mmol/L Creatinine 3.5 H (0.6-1.5) mg/dL Est GFR (CKD-EPI) 18 L (>=60) BUN/Creatinine Ratio 6.03 L (12.00-20.00) Ratio Glucose 175 H (70-110) mg/dL POC Glucose (mg/dL) 149 H (70-110) mg/dL Calcium 8.4 L (8.7-10.3) mg/dL 12/31/24 Range/Units 12:10 WBC (4.50-10.00) X 10*3/uL RBC (4.40-5.60) X 10*6/uL Hgb (13.0-17.0) g/dL Hct (39.6-50.0) % MPV (9.5-12.2) FL Immature Gran # (0.00-0.04) X 10*3/uL Neutrophils # (1.80-7.70) X 10*3/uL Sodium (135-145) mmol/L Chloride (96-109) mmol/L Anion Gap (4.00-12.00) mmol/L Creatinine (0.6-1.5) mg/dL Est GFR (CKD-EPI) (>=60) BUN/Creatinine Ratio (12.00-20.00) Ratio Glucose (70-110) mg/dL POC Glucose (mg/dL) 233 H (70-110) mg/dL Calcium (8.7-10.3) mg/dL Microbiology - Last 24 Hours (Table) 12/27/24 15:17 Blood Culture - Preliminary Blood Assessment and Plan (1) Peritonitis Status: Acute Code(s): K65.9 - PERITONITIS, UNSPECIFIED SNOMED Code(s): 34515267 (2) Allergy to multiple antibiotics Status: Acute Code(s): Z88.1 - ALLERGY STATUS TO OTHER ANTIBIOTIC AGENTS SNOMED Code(s): 913923306 (3) Fungal infection associated with peritoneal dialysis catheter Status: Acute Code(s): USV2336 - SNOMED Code(s): 848914339 Plan: 1patient presented to the hospital with abdominal constipation in this patient who is end-stage renal disease on peritoneal dialysis with significant cloudy urine and outpatient peritoneal fluid culture growing yeast patient has not been on any antibiotics or antifungal in the outpatient setting except vancomycin and Fortaz that he received for this episode 2patient will need to have removal of this dialysis catheter in order to completely cure of this infection the same General Surgery has been consulted and the patient status post removal of the peritoneal dialysis catheter on 12/25/2024 3repeat peritoneal fluid cell count still elevated and culture have been positive for Sheela paraspilosis which is usually Diflucan sensitive pathogen however the patient did have worsening of the cell count and the peritoneal fluid despite being on Diflucan I did contacted micro lab to get sensitivity for the fluconazole on this pathogen 4patient currently be treated with Eraxis and has received about a week of antifungal therapy IV patient white count normalized still waiting for sensitivity patient insisting on going home I will consider doing a course of oral Diflucan and follow-up on the sensitivity and adjust antifungal if needed has been discussed in detail with the PLUG MAKER for immediately follow-up in the office in 1 week question answered Dictation was produced using [employer] dictation software. please excuse any grammatical, word or spelling errors. Time with Patient: Less than 30
--- NOTE | 2025-01-03 10:33 | P.DS ---
Providers Date of admission: 12/22/24 23:42 Expected date of discharge: 12/31/24 Attending physician: Vahe Fields MD Consults: 12/23/24 13:05 Consult Physician Routine Consulting Provider: Jamie Noe Consult Reason/Comments: peritoneal fluid culture Do you want consulting provider notified?: Yes 12/23/24 13:06 Consult Physician Routine Consulting Provider: Angela Lambert Consult Reason/Comments: CAPD Do you want consulting provider notified?: Already Contacted 12/25/24 15:58 Consult Physician Routine Consulting Provider: Harman Snow Consult Reason/Comments: hemodialysis port Do you want consulting provider notified?: Yes Primary care physician: Stephanie Velazquez Hospital Course: Final diagnosis Abdominal pain and constipation, improving End-stage renal disease maintained on peritoneal dialysis with acute fungal peritonitis, status post peritoneal dialysis catheter removal with general surgery 12/25/2024, culture showing Sheela parapsilosis and awaiting sensitivities Status post hemodialysis catheter on the right chest wall and has been started on hemodialysis 12/26/2024 Nausea, vomiting, possibly acute gastritis Leukocytosis, trending down Diabetes Mellitus type 2, uncontrolled with hyperglycemia Hypertension Hyperlipidemia DVT hx Factor V Leiden Transverse Myelitis Hx of TBI Parathyroidectomy 2018 Obesity with a BMI 36.6 DVT prophylaxis GI prophylaxis Full Code Discharge disposition Patient is being discharged in a stable condition with guarded prognosis to home with home care. Patient will follow-up with Dr. Stephanie Velazquez in the outpatient setting upon discharge. Patient is to continue with hemodialysis as scheduled on Sunday//Sunday and close outpatient follow-up with nephrology. Patient will continue on oral antifungals and close outpatient follow-up with infectious disease in the next 1 week. Culture sensitivities remain pending and peritoneal fluid and awaiting for final report. Total time taken is greater than 35 minutes. Hospital course This is a pleasant 69-year-old male with medical history significant for end- stage renal disease maintained on peritoneal hemodialysis for the last year and a half, DVT, hypertension, hyperlipidemia, TBI, transverse myelitis, Factor V, diabetes mellitus. Patient comes into the hospital with come of complaints of abdominal pain and constipation. Last bowel movement was reportedly December 08 and has not been passing much gas. Denies any nausea, vomiting or diarrhea. Patient states he has had increasing abdominal pain. They have tried multiple laxatives and stool softeners without success. [facility] abdomen pelvis that showed stool impaction although otherwise no abnormality. He has been getting his regular peritoneal dialysis treatment without issues. On Sunday she noticed a dark yellow color with the fluid being taken off during dialysis had improved some with antibiotics but is not clear as it usually is. He was given vancomycin and ceftazidime through the peritoneal dialysis at the nephrology office and his did it once at home. Because of the continued discoloration of the peritoneal fluid which was yellow in color with mucus per the , they were instructed to come to the ER. CT abdomen pelvis reveals no suspicious abnormality to account for the abdominal pain. Peritoneal dialysis catheter with right hemipelvis. White blood cell count 8.37, hemoglobin 11.2, sodium of 132 BUN of 38 creatinine of 3.56. Albumin 3.3. Urinalysis is not suggestive of infection. Patient is afebrile heart rate of 73 normal sinus rhythm blood pressure of 120/64 he is 94% on room air. On the ER patient received a dose of IV ceftazidime as well as IV morphine. He was started on his peritoneal dialysis which will be sent for culture. Nephrology is on consult, ID was consulted. General surgery consulted for the constipation. 12/24/2024 Patient is getting follow-up with medical floor. He is status post barium enema and has had 2 large bowel movements. He is currently undergoing a CAPD with peritoneal cultures currently pending at this time. He continues on a course of antibiotics with IV ceftazidime peritoneal dialysis. ID and nephrology are following closely. 12/25/2024 Patient is seen in follow-up today with at the bedside. Patient is currently n.p.o. and is scheduled with general surgery to have peritoneal dialysis catheter removed. Vascular surgery Dr. Snow will be consulted for temporary dialysis catheter placement as patient will be initiating hemodialysis with nephrology following closely. Patient is continued on Diflucan currently with infectious disease following although is being transitioned to Eraxis as preliminary culture showing Sheela parapsilosis and awaiting sensitivities. Unsure if plan is for continued IV antibiotics and/or antibiotics through dialysis. Case management/social work also to follow to arrange for discharge planning and hemodialysis outpatient. Family reports they will be able to take him to dialysis. Encouraged increase activity as tolerated and will follow-up on repeat labs. 12/26/2024 Patient is seen in follow-up with nephrology, vascular surgery, infectious disease following. Patient was seen and evaluated by Dr. Snow this morning and had a right chest wall dialysis catheter placed. Nephrology following and h as ordered hemodialysis for today which is pending at this time. Patient is being followed by infectious disease awaiting finalized cultures to determine appropriate discharge antibiotics. Social work following arranging for outpatient hemodialysis. Will discuss further with infectious disease if patient will require IV antibiotics or have antibiotics with hemodialysis. 12/29/2024 Patient is seen in follow-up today being closely monitored with nephrology, general surgery, infectious disease following. Awaiting finalized sensitivities on Sheela species and was discussed with infectious disease previously regarding obtaining the sensitivities with micro lab. Micro lab contacted again and reported this was not sent out yet and is a send out and could take days to weeks to result. Micro lab reports they use [facility] for the sensitivity send outs and they do not receive results information. Phone number was provided to contact this lab for results. Awaiting the sensitivities to determine appropriate discharge antibiotics either oral or if patient requires IV. Patient does have a right temporary dialysis catheter placed on the chest wall and has been arranged for outpatient hemodialysis on Sunday//Sunday. Patient reports the nausea and vomiting is slightly improved although is continuing to require antinausea medication. Will continue current regimen and follow-up on repeat labs. White count is trending down and patient is afebrile. 12/30/2024 Patient is seen in follow-up today reports his nausea and vomiting has improved and asking for an advancing diet. General surgery was following although signing off as they are planning no surgical intervention and to slowly advance diet as tolerated. Patient does have a dialysis catheter on the right chest wall and is scheduled for outpatient dialysis with social work on Sunday//Sunday. Continuing to await sensitivities and was supposed to be sent to [facility] for finalized sensitivity report and candidal species. Per ID, will await the sensitivities. Patient is maintained on Eraxis and will continue for now. Patient is afebrile and denies chest pain or shortness of breath. Patient with generalized weakness would recommend PT/OT therapy evaluation. Family at the bedside reports he will be going home on discharge. Slowly advance diet as tolerated and monitor for tolerance. 12/31/2024 Patient is seen in follow-up today continues to await culture sensitivities which are a send out to a [facility] which is pending at this time. Infectious disease following and patient will continue on oral antifungals daily and close outpatient follow-up. Patient has been arranged for outpatient dialysis on Sunday//Sunday with close outpatient follow-up with nephrology. Patient has been cleared by consultations and extremely eager to go home. Please refer to consultation notes for further HPI. PHYSICAL EXAMINATION: GENERAL: The patient is alert and oriented x3, not in any acute distress. Well developed, well nourished. Elderly appearing, obese HEENT: Pupils are round and equally reacting to light. EOMI. No scleral icterus. No conjunctival pallor. Normocephalic, atraumatic. No pharyngeal erythema. No thyromegaly. CARDIOVASCULAR: S1 and S2 muffled, right chest wall surgical dressing is dry and intact with no active bleeding noted at this time PULMONARY: Diminished breath sounds bilaterally otherwise chest is clear to auscultation, no wheezing or crackles. ABDOMEN: Soft, obese, nontender, nondistended, Sluggish bowel sounds. No palpable organomegaly. MUSCULOSKELETAL: No joint swelling or deformity. EXTREMITIES: No cyanosis, clubbing, or pedal edema. NEUROLOGICAL: Gross neurological examination did not reveal any focal deficits. Diffusely weak SKIN: No rashes. The impression and plan of care has been dictated by Basilia Hdez, Nurse Practitioner as directed. Dr. Juan Francisco MD I have performed a history and physical examination and medical decision making of this patient, discussed the same with the dictator, and agree with the dictators assessment and plan as written, documented as a scribe. Based on total visit time, I have performed more than 50% of this visit. Patient Condition at Discharge: Fair Plan - Discharge Summary New Discharge Prescriptions: New carvediloL [Coreg*] 50 mg PO BID-W/MEALS 30 Days #120 tab Furosemide [Lasix] 80 mg PO DAILY #30 tab amLODIPine [Norvasc] 5 mg PO BID #60 tab Metoclopramide HCl [Reglan] 5 mg PO BID #60 tablet Acetaminophen Tab [Tylenol] 650 mg PO Q6HR PRN tab PRN Reason: Fever And/ Or Pain Fluconazole [Diflucan] 200 mg PO DAILY 14 Days #14 tablet hydrALAZINE HCL [Apresoline] 75 mg PO TID 30 Days #270 tab Continue Famotidine [Pepcid] 20 mg PO DAILY #30 tab Spironolactone [Aldactone] 25 mg PO DAILY HYDROcodone/APAP 7.5-325MG [[place] 7.5-325] 1 tab PO Q8H PRN PRN Reason: pain Potassium Chloride ER [K-Dur 10] 10 meq PO DAILY Insulin Aspart [NovoLOG Flexpen] 10 - 25 units SQ AC-TID MDD 60 units Lactulose [Cephulac] 20 gm PO TID PRN PRN Reason: bowel movement Isosorbide Mononitrate ER [Imdur] 60 mg PO DAILY Insulin Glargine,Hum.rec.anlog [Lantus Solostar Pen] 40 units SQ BID Ezetimibe/Simvastatin [Ezetimibe/Simvastatin 10-40 mg] 1 tab PO DAILY Aspirin EC [Ecotrin Low Dose] 81 mg PO DAILY diphenhydrAMINE [Benadryl] 25 mg PO HS Folic Acid/Vit B Complex and C [Purnima-Sb Tablet] 0.8 mg PO DAILY Changed polyethylene glycoL 3350 [Miralax] 17 gm PO DAILY PRN #0 PRN Reason: Constipation Discontinued cloNIDine HCL 0.2 mg PO TID Furosemide [Lasix] 40 mg PO DAILY hydrALAZINE HCL [Apresoline] 100 mg PO TID carvediloL [Coreg] 25 mg PO BID Sodium Bicarbonate Tab 650 mg PO DAILY Semaglutide [Ozempic] 0.25 mg SQ FR Discharge Medication List Aspirin EC [Ecotrin Low Dose] 81 mg PO DAILY 07/14/23 [History] Ezetimibe/Simvastatin [Ezetimibe/Simvastatin 10-40 mg] 1 tab PO DAILY 07/14/23 [History] Insulin Glargine,Hum.rec.anlog [Lantus Solostar Pen] 40 units SQ BID 07/14/23 [History] Isosorbide Mononitrate ER [Imdur] 60 mg PO DAILY 07/14/23 [History] Famotidine [Pepcid] 20 mg PO DAILY #30 tab 07/18/23 [Rx] Folic Acid/Vit B Complex and C [Purnima-Sb Tablet] 0.8 mg PO DAILY 12/23/24 [History] HYDROcodone/APAP 7.5-325MG [[place] 7.5-325] 1 tab PO Q8H PRN 12/23/24 [History] Insulin Aspart [NovoLOG Flexpen] 10 - 25 units SQ AC-TID MDD 60 units 12/23/24 [History] Lactulose [Cephulac] 20 gm PO TID PRN 12/23/24 [History] Potassium Chloride ER [K-Dur 10] 10 meq PO DAILY 12/23/24 [History] Spironolactone [Aldactone] 25 mg PO DAILY 12/23/24 [History] diphenhydrAMINE [Benadryl] 25 mg PO HS 12/23/24 [History] Acetaminophen Tab [Tylenol] 650 mg PO Q6HR PRN tab 12/31/24 [Rx] Fluconazole [Diflucan] 200 mg PO DAILY 14 Days #14 tablet 12/31/24 [Rx] Furosemide [Lasix] 80 mg PO DAILY #30 tab 12/31/24 [Rx] Metoclopramide HCl [Reglan] 5 mg PO BID #60 tablet 12/31/24 [Rx] amLODIPine [Norvasc] 5 mg PO BID #60 tab 12/31/24 [Rx] carvediloL [Coreg*] 50 mg PO BID-W/MEALS 30 Days #120 tab 12/31/24 [Rx] hydrALAZINE HCL [Apresoline] 75 mg PO TID 30 Days #270 tab 12/31/24 [Rx] polyethylene glycoL 3350 [Miralax] 17 gm PO DAILY PRN #0 12/31/24 [Rx] Follow up Appointment(s)/Referral(s): Vinay Valentine MD [Medical Doctor] - As Needed [facility] [NON-STAFF] - As Needed (SUNDAY - SUNDAY - SUNDAY AT 10:30 AM) Royer Readron DO [STAFF PHYSICIAN] - 1 Week (Office will call patient with appointment ) Stephanie Velazquez MD [Primary Care Provider] - 1-2 days Jamie Noe MD [STAFF PHYSICIAN] - 01/07/25 2:00 pm Ambulatory/Diagnostic Orders: Complete Blood Count w/diff [LAB.AMB] Time Frame: 3 Days, Location: None Selected Activity/Diet/Wound Care/Special Instructions: Activity limited until follow-up Follow-up with nephrology outpatient Follow-up with general surgery as needed outpatient Follow-up with infectious disease outpatient in 1 week Continue hemodialysis Sunday//Sunday as scheduled chair time Continue with Diflucan daily for 2 weeks per ID recommendations Continue diabetic renal diet and slowly advance as tolerated Recommend bowel regimen as needed as well as scheduled daily Hold if having multiple episodes of loose stools Follow-up on repeat labs in the outpatient setting in 2 to 3 days Discharge Disposition: HOME SELF-CARE
== END 2024-12-31 13:01 | disposition home or self-care (01) | DRG 907 ==
LOC: EC 15:32 → 6NMEDSUR 23:41 → OBSVTOIN 23:42 → 6NMEDSUR 12-23 01:02
PROVIDERS: ADMIT Internal Medicine; ATTEND Internal Medicine
PROC: 0WPG03Z Removal of Infusion Device from Peritoneal Cavity, Open Approach (ICD-10-PCS; principal; 2024-12-25 15:00)
PROC: 02HV33Z Insertion of Infusion Device into Superior Vena Cava, Percutaneous Approach (ICD-10-PCS; 2024-12-26 07:30)
PROC: 5A1D70Z Performance of Urinary Filtration, Intermittent, Less than 6 Hours Per Day (ICD-10-PCS; 2024-12-26 07:30)
DX: T85.71XA Infection and inflammatory reaction due to peritoneal dialysis catheter, initial encounter (principal); K65.8 Other peritonitis; N18.6 End stage renal disease; G37.3 Acute transverse myelitis in demyelinating disease of central nervous system; B37.89 Other sites of candidiasis; I12.0 Hypertensive chronic kidney disease with stage 5 chronic kidney disease or end stage renal disease; E87.1 Hypo-osmolality and hyponatremia; K56.7 Ileus, unspecified; Z99.2 Dependence on renal dialysis; E11.65 Type 2 diabetes mellitus with hyperglycemia; E66.9 Obesity, unspecified; D68.51 Activated protein C resistance; K56.41 Fecal impaction; Z79.4 Long term (current) use of insulin; E11.22 Type 2 diabetes mellitus with diabetic chronic kidney disease; T36.7X5A Adverse effect of antifungal antibiotics, systemically used, initial encounter; R11.2 Nausea with vomiting, unspecified; Y84.8 Other medical procedures as the cause of abnormal reaction of the patient, or of later complication, without mention of misadventure at the time of the procedure; E78.5 Hyperlipidemia, unspecified; E87.70 Fluid overload, unspecified; Y84.1 Kidney dialysis as the cause of abnormal reaction of the patient, or of later complication, without mention of misadventure at the time of the procedure; Z68.36 Body mass index [BMI] 36.0-36.9, adult; Z79.82 Long term (current) use of aspirin; Z79.899 Other long term (current) drug therapy; Z86.718 Personal history of other venous thrombosis and embolism; Z87.820 Personal history of traumatic brain injury; Z88.2 Allergy status to sulfonamides; Z88.0 Allergy status to penicillin; Z91.041 Radiographic dye allergy status; Z98.49 Cataract extraction status, unspecified eye
CPT/HCPCS: 36415; 36558; 71045; 74019; 74176; 74270; 76937; 77001; 80048; 80053; 80202; 81001; 82945; 83036; 83605; 83735; 84100; 85025; 86706; 87040; 87070; 87075; 87205; 87340; 87636; 89050; 90935; 93005; 94640; 96374; 99285